=== PATIENT | male | born 1935 | race Caucasian/White ===

== ENCOUNTER → 2017-08-11 08:57 | Outpatient (CLI) | payer MEDICARE, OTHER, SELFPAY ==
--- NOTE | 2017-08-11 | DI.MRI.S_ITS ---
PROCEDURE: MR LUMBAR SPINE WO CON INDICATIONS: LUMBAR SPINAL STENOSIS TECHNIQUE: Noncontrast sagittal T1 spin echo and T2 fast echo, sagittal STIR, axial T1 and T2 fast spin echo through the lumbar spine. In this patient, coronal T2-weighted images were also performed. COMPARISON: None. FINDINGS: Image quality: Diagnostic, with note made of motion artifact. Alignment and Curvature: Moderate dextroconvex scoliotic curvature is seen. Mild retrolisthesis is seen at the T12-L1, L2-L3, and L3-L4, and L4-L5, and L5-S1 levels. Bone Marrow: Marrow is of normal overall signal. No acute vertebral body compression fractures. Spinal Cord: Conus medullaris terminates at the L1 level. Visualized cord demonstrates normal signal and size. Paraspinous Soft Tissues: No paravertebral masses. T12-L1: Moderate loss of disc height is seen. Loss of disc signal is seen. Moderate disc bulge is seen, which is eccentric to the right. Moderate bilateral neural foraminal narrowing is seen, right worse than left. Mild central canal narrowing is seen. L1-L2: Moderate to severe loss of disc height and disc signal are seen on the left. Moderate generalized disc bulge is seen. Moderate facet joint hypertrophy is seen. Moderate bilateral neural foraminal narrowing is seen, left worse than right. Moderate central canal narrowing is seen. L2-L3: Moderate to severe loss of disc height and disc signal are seen. Moderate disc bulge is seen. Moderate facet joint hypertrophy is seen. There is moderate left-sided and mild right-sided neural foraminal narrowing seen. [id number] central canal narrowing is seen. L3-L4: Moderate to severe loss of disc height and disc signal are seen. Moderate disc bulge is seen. At least moderate facet hypertrophy is seen. There is moderate to severe bilateral neural foraminal narrowing seen, left worse than right. There is a degree of impingement seen upon the exiting nerve roots. Moderate to severe central canal narrowing is seen. L4-L5: At least moderate loss of disc height is seen. Modified disc bulge is seen, which is eccentric to the right. There is moderate to severe right-sided neural foraminal narrowing seen, with associated impingement upon the exiting right L4 nerve root. Moderate left-sided neural foraminal narrowing is seen. [id number] central canal narrowing is seen. L5-S1: At least moderate loss of disc height and disc signal are seen. Moderate disc bulge is seen, which is eccentric to the right. Moderate facet joint hypertrophy is seen. Moderate to severe bilateral neural foraminal narrowing is seen, right worse than left. Mild to moderate central canal narrowing is seen. IMPRESSION: Dextroconvex scoliosis and associated degenerative changes. The degenerative changes are overall most prominent at the L3-L4 level. Dictated by: Luis Carlos Soni M.D. on 08/11/2017 at 12:17 Approved by: Luis Carlos Soni M.D. on 08/11/2017 at 12:24
== END ==
PROVIDERS: Family Provider Internal Medicine; PCP Internal Medicine; Visit Provider Orthopaedic Surgery
DX: M48.061 Spinal stenosis, lumbar region without neurogenic claudication (principal); M41.9 Scoliosis, unspecified; M51.36 Other intervertebral disc degeneration, lumbar region
CPT/HCPCS: 72148

== ENCOUNTER → 2017-08-25 11:35 | Outpatient (CLI) | payer MEDICARE, OTHER, SELFPAY ==
[2017-08-25 13:12] LABS: BUN Creatinine Ratio 24.7 (6-22); Blood Urea Nitrogen 37 mg/dL (9-20); Calcium 9.7 mg/dL (8.4-10.2); Carbon Dioxide 23 mmol/L (22-32); Chloride 105 mmol/L (98-107); Glucose 150 mg/dL (80-110); HEMOLYSIS < 15 (0-50); Potassium 4.2 mmol/L (3.4-5.1); Sodium 140 mmol/L (137-145)
== END ==
PROVIDERS: Family Provider Internal Medicine; PCP Internal Medicine; Visit Provider Internal Medicine
DX: H81.03 Meniere's disease, bilateral (principal)
CPT/HCPCS: 36415; 80048

== ENCOUNTER → 2017-09-03 14:44 | Outpatient (CLI) | payer MEDICARE, OTHER, SELFPAY ==
--- NOTE | 2017-09-03 | DI.RAD.S_ITS ---
PROCEDURE: XR CHEST 2V INDICATIONS: COUGH TECHNIQUE: 2 views of the chest were acquired. COMPARISON: [facility], , CHEST 2 VIEW, 12/02/2016, 12:19. FINDINGS: Surgical changes and devices: None. Lungs and pleura: No pleural effusions or pneumothorax. Lungs are clear. Mediastinum: Mediastinal contours are normal. Heart size is normal. Bones and chest wall: No suspicious bony abnormalities. Soft tissues appear unremarkable. IMPRESSION: No source of cough is found. Chronic interstitial prominence previously documented. No effusion seen. Dictated by: Jemal Andrade M.D. on 09/03/2017 at 16:56 Approved by: Jemal Andrade M.D. on 09/03/2017 at 16:56
== END ==
PROVIDERS: Family Provider Internal Medicine; PCP Internal Medicine; Visit Provider Student in an Organized Health Care Education/Training Program
DX: R05 Cough (principal)
CPT/HCPCS: 71046

== ENCOUNTER → 2017-09-08 14:19 | Outpatient (CLI) | payer MEDICARE, OTHER, SELFPAY ==
[2017-09-08 17:01] LABS: Blood Urea Nitrogen 28 mg/dL (9-20); Calcium 9.3 mg/dL (8.4-10.2); Carbon Dioxide 24 mmol/L (22-32); Chloride 104 mmol/L (98-107); Estimated Glomerular Filt Rate 48.8 mL/min (>60); Glucose 106 mg/dL (80-110); HEMOLYSIS < 15 (0-50); Potassium 4.3 mmol/L (3.4-5.1); Sodium 140 mmol/L (137-145)
== END ==
PROVIDERS: Family Provider Internal Medicine; PCP Internal Medicine; Visit Provider Internal Medicine
DX: H81.03 Meniere's disease, bilateral (principal)
CPT/HCPCS: 36415; 80048

== ENCOUNTER 2017-11-20 15:06 | Emergency (ER) | payer MEDICARE, OTHER, SELFPAY ==
--- NOTE | 2017-11-20 15:12 | ED.FALL ---
HPI - Fall General Chief Complaint: Fall Stated Complaint: GLF Time Seen by Provider: 11/20/17 15:08 Source: patient and EMS Mode of arrival: EMS History of Present Illness HPI Narrative: 82-year-old male with history ongoing balance problems presents with a ground level fall and resultant injury to his left flank. He denies any head injury that he can think of but he does have significant distracting injuries. He has got midline neck pain as well as significant left-sided rib and flank pain which is worse with a deep breath or with motion. He denies nausea, vomiting or diarrhea. He does not take blood thinners. He feels better at rest. He refused pain meds from the paramedics. MD complaint: fall Onset (ago): minute(s) Fall from: standing Fall witnessed: no Place fall occurred: home Loss of consciousness: none Prolonged down time: no Symptoms prior to fall: none Context: history of frequent falls Location of injury: neck and back Quality: stabbing and aching Associated symptoms (after fall): denies Related Data Home Medications Medication Instructions Recorded Confirmed allopurinol 1 tab PO DAILY 11/20/17 11/20/17 amlodipine 5 mg PO DAILY 11/20/17 11/20/17 aspirin 81 mg PO DAILY 11/20/17 11/20/17 lisinopril-hydrochlorothiazide 1 tab PO DAILY 11/20/17 11/20/17 Previous Rx's Medication Instructions Recorded hydrocodone-acetaminophen 1 tab PO Q4-6H PRN #14 tab 11/20/17 Review of Systems Review of Systems All systems reviewed & are unremarkable except as noted in HPI and below Constitutional Denies chills, Denies fever(s), Denies lethargy and Denies weakness Eyes Denies change in vision, Denies eye discharge, Denies irritation and Denies loss of vision ENT Ears, Nose, Mouth, and Throat: Denies change in voice, Denies neck pain and Denies sore throat Cardiovascular Denies chest pain, Denies irregular heart rhythm, Denies lightheadedness, Denies palpitations, Denies dyspnea, Denies dyspnea on exertion and Denies orthopnea Respiratory Denies cough, Denies dyspnea, Denies dyspnea on exertion and Denies wheezing Comments: Pain in left rib is worse with deep breath Gastrointestinal Gastrointestinal: Denies abdominal pain, Denies change in bowel habits, Denies diarrhea, Denies nausea and Denies vomiting Genitourinary Denies hematuria, Denies flank pain, Denies urinary incontinence and Denies urinary urgency Musculoskeletal Denies neck pain Integumentary/Breasts Denies pruritus, Denies erythema, Denies rash and Denies wounds Neurologic Denies confusion, Denies loss of vision and Denies weakness Psychiatric Denies anxiety, Denies confusion, Denies depression, Denies homicidal ideation and Denies suicidal ideation Endocrine Denies palpitations Hematologic/Lymphatic Denies easy bruising Allergic/Immunologic Denies wheezing Exam Initial Vital Signs Initial Vital Signs: Vital Signs Temperature 98.7 F 11/20/17 15:20 Pulse Rate 80 11/20/17 15:20 Respiratory Rate 21 11/20/17 15:20 Blood Pressure 147/97 H 11/20/17 15:20 Pulse Oximetry 99 11/20/17 15:20 PFS Social History Smoking Status: Never smoker Course Orders Ordered: ED Orders 11/20/17 15:13 EKG-12 Lead Stat 11/20/17 15:15 CT head/brain wo con Stat XR chest 1V Stat XR pelvis 1-2V Stat 11/20/17 15:16 CT cervical spine wo con Stat CT chest abd pel w con Stat 11/20/17 15:41 Complete Blood Count AUTO DIFF Stat Comprehensive Metabolic Panel Stat Ethanol (ETOH) Stat Lipase Stat Partial Thromboplastin Time Stat Prothrombin Time INR Stat Troponin & CK Cardiac Panel Stat Type and Screen Stat Sodium Chloride (Normal Saline 0.9%) 1,000 mls @ 150 mls/hr IV CONT TUNG Last Admin: 11/20/17 15:48 Dose: 150 mls/hr Discontinued Medications Fentanyl (Sublimaze) 50 mcg IV NOW ONE Stop: 11/20/17 15:17 Last Admin: 11/20/17 15:48 Dose: 50 mcg Reevaluation(s) Reevaluation #1: Patient evaluated by Respiratory therapy and given incentive spirometer Vital Signs - 8 hr 11/20/17 15:20 Temperature 98.7 F Pulse Rate 80 Respiratory Rate 21 Blood Pressure 147/97 H Pulse Oximetry 99 MDM - Fall Medical Records Attestation: I reviewed the patient's medical records. Lab Data Attestation: I reviewed the patient's lab results. Result diagrams: 11/20/17 15:41 11/20/17 15:41 Lab Results 0911/20/17 11/20/17 Range/Units 15:41 15:41 15:41 WBC 6.2 (4.5-11.0) X10^3/uL RBC 4.73 (4.5-5.9) X10^6/uL Hgb 13.6 (13.5-17.5) g/dL Hct 40.6 L (41-53) % MCV 85.9 (80-100) fL MCH 28.8 (26-34) PG MCHC 33.5 (30-36) % RDW 14.3 (11.6-14.8) % Plt Count 130 L (150-400) X10^3/uL Neut % (Auto) 74.4 (50-75) % Lymph % (Auto) 14.8 L (25-40) % [place] % (Auto) 7.8 (3-14) % Eos % (Auto) 2.0 (2-4) % Baso % (Auto) 1.0 (0-2) % Neut # (Auto) 4700 (1570-3773) /uL PT 11.3 (10.1-12.7) SECONDS INR 1.1 (0.9-1.3) APTT 27 (26.4-36.2) SECONDS Sodium (137-145) mmol/L Potassium (3.4-5.1) mmol/L Chloride (98-107) mmol/L Carbon Dioxide (22-32) mmol/L BUN (9-20) mg/dL Creatinine (0.66-1.25) mg/dL Estimated GFR (>60) mL/min BUN/Creatinine Ratio (6-22) Glucose (80-110) mg/dL Calcium (8.4-10.2) mg/dL Total Bilirubin (0.2-1.3) mg/dL AST (17-59) IU/L ALT (21-72) IU/L Alkaline Phosphatase (38-126) U/L Total Creatine Kinase Cancelled CK-MB (CK-2) Cancelled CK-MB (CK-2) Rel Index Cancelled Troponin I Cancelled Total Protein (6.3-8.2) g/dL Albumin (3.5-5.0) g/dL Globulin (1.7-4.1) g/dL Albumin/Globulin Ratio (1.0-2.8) Lipase (23-300) U/L Ethyl Alcohol mg/dL Blood Type Antibody Screen 11/20/17 11/20/17 Range/Units 15:41 15:41 WBC (4.5-11.0) X10^3/uL RBC (4.5-5.9) X10^6/uL Hgb (13.5-17.5) g/dL Hct (41-53) % MCV (80-100) fL MCH (26-34) PG MCHC (30-36) % RDW (11.6-14.8) % Plt Count (150-400) X10^3/uL Neut % (Auto) (50-75) % Lymph % (Auto) (25-40) % [place] % (Auto) (3-14) % Eos % (Auto) (2-4) % Baso % (Auto) (0-2) % Neut # (Auto) (9232-7246) /uL PT (10.1-12.7) SECONDS INR (0.9-1.3) APTT (26.4-36.2) SECONDS Sodium 142 (137-145) mmol/L Potassium 3.8 (3.4-5.1) mmol/L Chloride 105 (98-107) mmol/L Carbon Dioxide 26 (22-32) mmol/L BUN 32 H (9-20) mg/dL Creatinine 1.40 H (0.66-1.25) mg/dL Estimated GFR 48.6 L (>60) mL/min BUN/Creatinine Ratio 22.9 H (6-22) Glucose 163 H (80-110) mg/dL Calcium 9.6 (8.4-10.2) mg/dL Total Bilirubin 0.6 (0.2-1.3) mg/dL AST 19 (17-59) IU/L ALT 30 (21-72) IU/L Alkaline Phosphatase 62 (38-126) U/L Total Creatine Kinase 90 CK-MB (CK-2) TNP CK-MB (CK-2) Rel Index Troponin I < 0.012 Total Protein 6.6 (6.3-8.2) g/dL Albumin 4.1 (3.5-5.0) g/dL Globulin 2.5 (1.7-4.1) g/dL Albumin/Globulin Ratio 1.6 (1.0-2.8) Lipase 107 (23-300) U/L Ethyl Alcohol < 10 mg/dL Blood Type AB Positive Antibody Screen Negative Point of Care Testing Glucose POC [address] scan - head: Radiologist's impression: PROCEDURE: CT HEAD/BRAIN WO CON INDICATIONS: fall with possible head injury TECHNIQUE: Noncontrast 4.5 mm thick angled axial sections acquired from the foramen magnum to the vertex, with coronal and sagittal reformats. For radiation dose reduction, the following was used: automated exposure control, adjustment of mA and/or kV according to patient size. COMPARISON: [facility], CT, HEAD WITHOUT CONTRAST, 06/24/2017, 12:01. FINDINGS: Image quality: Excellent. CSF spaces: Basal cisterns are patent. No extra-axial fluid collections. The ventricles are symmetric in size and shape. Brain: No intracranial bleeds or masses. There is cerebral volume loss for age, with resultant ventricular and sulcal prominence. There are periventricular and deep white matter chronic small vessel ischemic changes. There is intracranial internal carotid artery atherosclerosis. Skull and face: Calvarium and visualized facial bones appear intact, without suspicious lesions. Sinuses: Visualized sinuses and mastoids are clear. IMPRESSION: 1. No acute intracranial abnormalities. 2. Cerebral volume loss and chronic microvascular ischemic changes. Dictated by: Niharika Meadows M.D. on 11/20/2017 at 16:11 Approved by: Niharika Meadows M.D. on 11/20/2017 at 16:13 CT Cspine: Radiologist's impression: PROCEDURE: CT CERVICAL SPINE WO CON INDICATIONS: neck pain after fall TECHNIQUE: Noncontrast 3 mm thick sections acquired from the skull base to the T4 level. Sagittal and coronal reformats were then constructed. For radiation dose reduction, the following was used: automated exposure control, adjustment of mA and/or kV according to patient size. COMPARISON: [facility], CT, C-SPINE WITHOUT CONTRAST, 05/21/2015, 11:19. FINDINGS: Image quality: Excellent. Bones: No fractures or dislocations. Visualized superior ribs are intact. Extensive multilevel cervical disc degeneration throughout the entire cervical spine as before. Loss of the normal cervical lordosis and focal kyphosis centered at C5. There is redemonstration of grade 1 anterolisthesis of C2 on C3 and C4 on C5. Postsurgical effects including C5-C6 posterior decompression as before Soft tissues: Prevertebral soft tissues are normal in thickness. No paravertebral hematomas. No apical pneumothoraces. IMPRESSION: No acute fracture or malalignment identified. Extensive diffuse cervical disc degeneration, facet arthropathy and postsurgical changes as above. Dictated by: Js Conway M.D. on 11/20/2017 at 16:12 Approved by: Js Conway M.D. on 11/20/2017 at 16:16 Chest x-ray: Attestation: I personally reviewed and interpreted this imaging study as follows: My impression: [facility] Radiologist's impression: PROCEDURE: XR CHEST 1V INDICATIONS: fall with L rib pain TECHNIQUE: One view of the chest was acquired. [facility] 14[facility]39[facility]ST [facility], 12/02/2016, 12:19. FINDINGS: Surgical changes and devices: None. Lungs and pleura: No pleural effusions or pneumothorax. Lungs are clear. Mediastinum: Mediastinal contours appear normal. Heart size is normal. Bones and chest wall: No suspicious bony lesions. Overlying soft tissues appear unremarkable. IMPRESSION: Tortuous aorta, no trauma seen, no acute disease considering patient rotation rightward. Dictated by: Jemla Andrade M.D. on 11/20/2017 at 15:53 Approved by: Jemal Andrade M.D. on 11/20/2017 at 15:53 Pelvis Xray: Attestation: I personally reviewed and interpreted this imaging study as follows: My impression: [facility] Radiologist's impression: [address] [address] XRay Report Signed Patient: Esvin Coombs [facility]#: [id number] : 7Acct:[id number] Age/Sex: 82 / MDate of Service: 11/20/17 Loc: ED Accession Number: [id number] Procedure: XR pelvis 1-2V Ordering Provider: Raf Riggs D.O. PROCEDURE: XR PELVIS 1-2V INDICATIONS: fall with L sided pain TECHNIQUE: 2 view(s) of the pelvis acquired. COMPARISON: None. FINDINGS: Bones: No fractures or dislocations. No suspicious bony lesions. Soft tissues: Visualized bowel gas pattern is normal. No suspicious soft tissue calcifications. Postsurgical clips present over the pelvis bilaterally. 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 Dictated by: Jemal Andrade M.D. on 11/20/2017 at 15:54 Approved by: Jemal Andrade M.D. on 11/20/2017 at 15:54 Discharge Plan Departure Patient Disposition: Home Clinical Impression: Fracture, ribs Instructions: DI for Rib Fracture Activity Restrictions/Additional Instructions: You have been prescribed narcotic medications. While on these medications you cannot drive or operate heavy machinery. Additionally you cannot sign legal documents or perform any duties such as this. Many people get constipated on narcotic medications so it would be advisable to discuss stool softeners with the pharmacist when you coal picker your prescription. Please understand that we cannot provide further refills of narcotics or controlled substances through the ED and your pain management will need to be through your Primary Care Provider Prescriptions: New hydrocodone-acetaminophen 5-325 mg tablet 1 tab PO Q4-6H PRN (Reason: pain) Qty: 14 RF: 0 No Action lisinopril-hydrochlorothiazide 20-12.5 mg tablet 1 tab PO DAILY RF: 0 amlodipine 5 mg tablet 5 mg PO DAILY RF: 0 allopurinol 300 mg tablet 1 tab PO DAILY RF: 0 aspirin 81 mg Tablet,Delayed Release (Dr/Ec) 81 mg PO DAILY RF: 0 Referrals: Duke Felix MD [Primary Care Provider] -
--- NOTE | 2017-11-20 15:15 | DI.RAD.S_ITS ---
PROCEDURE: XR CHEST 1V INDICATIONS: fall with L rib pain TECHNIQUE: One view of the chest was acquired. COMPARISON: [facility], , XR CHEST 2V, 09/03/2017, 14:39. [facility], , CHEST 2 VIEW, 12/02/2016, 12:19. FINDINGS: Surgical changes and devices: None. Lungs and pleura: No pleural effusions or pneumothorax. Lungs are clear. Mediastinum: Mediastinal contours appear normal. Heart size is normal. Bones and chest wall: No suspicious bony lesions. Overlying soft tissues appear unremarkable. IMPRESSION: Tortuous aorta, no trauma seen, no acute disease considering patient rotation rightward. Dictated by: Jemal Andrade M.D. on 11/20/2017 at 15:53 Approved by: Jemal Andrade M.D. on 11/20/2017 at 15:53
--- NOTE | 2017-11-20 15:15 | DI.CT.S_ITS ---
PROCEDURE: CT HEAD/BRAIN WO CON INDICATIONS: fall with possible head injury TECHNIQUE: Noncontrast 4.5 mm thick angled axial sections acquired from the foramen magnum to the vertex, with coronal and sagittal reformats. For radiation dose reduction, the following was used: automated exposure control, adjustment of mA and/or kV according to patient size. COMPARISON: [facility], CT, HEAD WITHOUT CONTRAST, 06/24/2017, 12:01. FINDINGS: Image quality: Excellent. CSF spaces: Basal cisterns are patent. No extra-axial fluid collections. The ventricles are symmetric in size and shape. Brain: No intracranial bleeds or masses. There is cerebral volume loss for age, with resultant ventricular and sulcal prominence. There are periventricular and deep white matter chronic small vessel ischemic changes. There is intracranial internal carotid artery atherosclerosis. Skull and face: Calvarium and visualized facial bones appear intact, without suspicious lesions. Sinuses: Visualized sinuses and mastoids are clear. IMPRESSION: 1. No acute intracranial abnormalities. 2. Cerebral volume loss and chronic microvascular ischemic changes. Dictated by: Niharika Meadows M.D. on 11/20/2017 at 16:11 Approved by: Niharika Meadows M.D. on 11/20/2017 at 16:13
--- NOTE | 2017-11-20 15:15 | DI.RAD.S_ITS ---
PROCEDURE: XR PELVIS 1-2V INDICATIONS: fall with L sided pain TECHNIQUE: 2 view(s) of the pelvis acquired. COMPARISON: None. FINDINGS: Bones: No fractures or dislocations. No suspicious bony lesions. Soft tissues: Visualized bowel gas pattern is normal. No suspicious soft tissue calcifications. Postsurgical clips present over the pelvis bilaterally. 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 Dictated by: Jemal Andrade M.D. on 11/20/2017 at 15:54 Approved by: Jemal Andrade M.D. on 11/20/2017 at 15:54
--- NOTE | 2017-11-20 15:16 | DI.CT.S_ITS ---
PROCEDURE: CT CERVICAL SPINE WO CON INDICATIONS: neck pain after fall TECHNIQUE: Noncontrast 3 mm thick sections acquired from the skull base to the T4 level. Sagittal and coronal reformats were then constructed. For radiation dose reduction, the following was used: automated exposure control, adjustment of mA and/or kV according to patient size. COMPARISON: [facility], CT, C-SPINE WITHOUT CONTRAST, 05/21/2015, 11:19. FINDINGS: Image quality: Excellent. Bones: No fractures or dislocations. Visualized superior ribs are intact. Extensive multilevel cervical disc degeneration throughout the entire cervical spine as before. Loss of the normal cervical lordosis and focal kyphosis centered at C5. There is redemonstration of grade 1 anterolisthesis of C2 on C3 and C4 on C5. Postsurgical effects including C5-C6 posterior decompression as before Soft tissues: Prevertebral soft tissues are normal in thickness. No paravertebral hematomas. No apical pneumothoraces. IMPRESSION: No acute fracture or malalignment identified. Extensive diffuse cervical disc degeneration, facet arthropathy and postsurgical changes as above. Dictated by: Js Conway M.D. on 11/20/2017 at 16:12 Approved by: Js Conway M.D. on 11/20/2017 at 16:16
--- NOTE | 2017-11-20 15:16 | DI.CT.S_ITS ---
PROCEDURE: CT CHEST ABD PEL W CON INDICATIONS: severe L sided chest/abdomen pain after fall TECHNIQUE: After the administration of intravenous contrast, 5 mm thick sections acquired from the lung apices to the symphysis. 2.5 mm thick coronal and sagittal reformats were acquired. Additional 7 mm thick coronal maximum intensity projection (MIP) reformats acquired through the lungs. Optional 10-minute delayed imaging may be performed from the kidneys to the bladder. For radiation dose reduction, the following was used: automated exposure control, adjustment of mA and/or kV according to patient size. COMPARISON: [facility], CT, CT CERVICAL SPINE WO CON, 11/20/2017, 15:56. [facility], CT, CT HEAD/BRAIN WO CON, 11/20/2017, 15:56. [facility], CR, XR PELVIS 1-2V, 11/20/2017, 15:25. [facility], CR, XR CHEST 1V, 11/20/2017, 15:25. FINDINGS: Image quality: Excellent. CHEST: Lungs: No pulmonary contusions or lacerations. No acute airspace opacities. No pneumothorax or hemothorax. Central and peripheral airways appear patent and normal in caliber. Mediastinum: No mediastinal hematomas. Heart size is normal. No pericardial effusion. Thoracic aorta and pulmonary arteries demonstrate normal size and enhancement. Atherosclerotic calcification is noted. No mediastinal or hilar adenopathy. Esophagus is normal in caliber. No hiatal hernia. Chest wall: There are acute left posterior rib fractures involving the 11th and 12th ribs. There are remote left lateral rib fractures present. No subcutaneous emphysema. No axillary or supraclavicular adenopathy. Thyroid gland demonstrates a densely calcified lesion within the left thyroid lobe, as on series 2 image 9, which is presumed to be benign. ABDOMEN: Solid organs: Liver is normal in size and enhancement, without lacerations. A water density cyst can be seen within the central liver, as on series 2 image 54 measuring 13 mm. Gallbladder is partially collapsed at the time of this examination. Biliary system is non-dilated. Pancreas enhances normally, without transection. Spleen is normal in size and enhancement, without lacerations. There is a right adrenal lesion seen that measures 4 x 2.7 cm in greatest axial dimension, with a central density of 52 Hounsfield units. A left adrenal nodule is also seen that measures 1.9 x 1.5 cm in greatest axial dimension, with a central density of 39 Hounsfield units. Both kidneys enhance normally. There is left-sided hydronephrosis and a prominent left renal pelvis, with an abrupt caliber change into the normal caliber left ureter. UPJ obstruction is suspected. Simple appearing exophytic right renal cysts are seen. Peritoneum and bowel: No free fluid or air. Unenhanced bowel loops demonstrate normal wall thickness and caliber. Diverticulosis is seen, without findings of active diverticulitis. Nodes and vessels: No retroperitoneal or mesenteric adenopathy. Aorta and inferior vena cava are normal in size and enhancement. Miscellaneous: A mild periumbilical hernia is seen, containing fat. PELVIS: Genitourinary: Bladder wall thickness is normal. Prostatectomy change is seen. Miscellaneous: No inguinal hernias or adenopathy. Bones: Pelvic ring and hip joints appear intact. No vertebral compression fractures. Moderate dextroconvex scoliotic curvature is seen. Prominent degenerative changes are seen. Fusion changes are seen at the L2-L3 level. IMPRESSION: Acute fractures of the left posterior 11th and 12th ribs. There is no associated pneumothorax. No solid organ injury can be seen. No acute hematomas are seen. Bilateral adrenal nodules are seen. Although hematomas are possible in this acute setting, these are felt more likely to be related to masses. When clinically appropriate, please consider a dedicated adrenal protocol MRI for further evaluation (assuming that there is no contraindication). Left UPJ obstruction. Incidental note is made of: Moderate dextroconvex scoliosis Presumed liver cyst Right renal cysts Degenerative changes with fusion of the L2-L3 level Remote left lateral rib fractures Fat-containing periumbilical hernia Prostatectomy change Dictated by: Luis Carlos Soni M.D. on 11/20/2017 at 16:39 Approved by: Luis Carlos Soni M.D. on 11/20/2017 at 16:49
[2017-11-20 15:20] VITALS: BP 147/97; PULSE 80; RESP 21; TEMP 37.1; O2SAT 99; BMI 29.0
[2017-11-20] MEDS: fentaNYL 100 MCG/2 ML INJ 50 MCG IV (15:48)
[2017-11-20] MEDS: SODIUM CHLORIDE 0.9% 1,000 ML 150 ML IV (15:48)
[2017-11-20 15:49] LABS: Add Manual Diff / Slide Review NO; Hematocrit 40.6 % (41-53); Hemoglobin 13.6 g/dL (13.5-17.5); Lymphocytes Percent Auto 14.8 % (25-40); Mean Corpuscular HGB Conc 33.5 % (30-36); Mean Corpuscular Hemoglobin 28.8 PG (26-34); Mean Corpuscular Volume 85.9 fL (80-100); Monocytes Percent Auto 7.8 % (3-14); Neutrophils Absolute Auto 4700 /uL (3000-5900); Neutrophils Percent Auto 74.4 % (50-75); Platelet Count 130 X10^3/uL (150-400); Red Blood Cell Count 4.73 X10^6/uL (4.5-5.9); Red Cell Distribution Width 14.3 % (11.6-14.8); White Blood Cell Count 6.2 X10^3/uL (4.5-11.0)
[2017-11-20 15:56] LABS: INR 1.1 (0.9-1.3); Prothrombin Time 11.3 SECONDS (10.1-12.7)
[2017-11-20 15:59] LABS: PTT Partial Thromboplastin Tim 27 SECONDS (26.4-36.2)
--- NOTE | 2017-11-20 16:01 | ED_ITS ---
HPI - Fall General Chief Complaint: Fall Stated Complaint: GLF Time Seen by Provider: 11/20/17 15:08 Source: patient and EMS Mode of arrival: EMS History of Present Illness HPI Narrative: 82-year-old male with history ongoing balance problems presents with a ground level fall and resultant injury to his left flank. He denies any head injury that he can think of but he does have significant distracting injuries. He has got midline neck pain as well as significant left-sided rib and flank pain which is worse with a deep breath or with motion. He denies nausea, vomiting or diarrhea. He does not take blood thinners. He feels better at rest. He refused pain meds from the paramedics. MD complaint: fall Onset (ago): minute(s) Fall from: standing Fall witnessed: no Place fall occurred: home Loss of consciousness: none Prolonged down time: no Symptoms prior to fall: none Context: history of frequent falls Location of injury: neck and back Quality: stabbing and aching Associated symptoms (after fall): denies Related Data Home Medications Medication Instructions Recorded Confirmed allopurinol 1 tab PO DAILY 11/20/17 11/20/17 amlodipine 5 mg PO DAILY 11/20/17 11/20/17 aspirin 81 mg PO DAILY 11/20/17 11/20/17 lisinopril-hydrochlorothiazide 1 tab PO DAILY 11/20/17 11/20/17 Previous Rx's Medication Instructions Recorded hydrocodone-acetaminophen 1 tab PO Q4-6H PRN #14 tab 11/20/17 Review of Systems Review of Systems All systems reviewed & are unremarkable except as noted in HPI and below Constitutional Denies chills, Denies fever(s), Denies lethargy and Denies weakness Eyes Denies change in vision, Denies eye discharge, Denies irritation and Denies loss of vision ENT Ears, Nose, Mouth, and Throat: Denies change in voice, Denies neck pain and Denies sore throat Cardiovascular Denies chest pain, Denies irregular heart rhythm, Denies lightheadedness, Denies palpitations, Denies dyspnea, Denies dyspnea on exertion and Denies orthopnea Respiratory Denies cough, Denies dyspnea, Denies dyspnea on exertion and Denies wheezing Comments: Pain in left rib is worse with deep breath Gastrointestinal Gastrointestinal: Denies abdominal pain, Denies change in bowel habits, Denies diarrhea, Denies nausea and Denies vomiting Genitourinary Denies hematuria, Denies flank pain, Denies urinary incontinence and Denies urinary urgency Musculoskeletal Denies neck pain Integumentary/Breasts Denies pruritus, Denies erythema, Denies rash and Denies wounds Neurologic Denies confusion, Denies loss of vision and Denies weakness Psychiatric Denies anxiety, Denies confusion, Denies depression, Denies homicidal ideation and Denies suicidal ideation Endocrine Denies palpitations Hematologic/Lymphatic Denies easy bruising Allergic/Immunologic Denies wheezing Exam Initial Vital Signs Initial Vital Signs: Vital Signs Temperature 98.7 F 11/20/17 15:20 Pulse Rate 80 11/20/17 15:20 Respiratory Rate 21 11/20/17 15:20 Blood Pressure 147/97 H 11/20/17 15:20 Pulse Oximetry 99 11/20/17 15:20 PFS Social History Smoking Status: Never smoker Course Orders Ordered: ED Orders 11/20/17 15:13 EKG-12 Lead Stat 11/20/17 15:15 CT head/brain wo con Stat XR chest 1V Stat XR pelvis 1-2V Stat 11/20/17 15:16 CT cervical spine wo con Stat CT chest abd pel w con Stat 11/20/17 15:41 Complete Blood Count AUTO DIFF Stat Comprehensive Metabolic Panel Stat Ethanol (ETOH) Stat Lipase Stat Partial Thromboplastin Time Stat Prothrombin Time INR Stat Troponin & CK Cardiac Panel Stat Type and Screen Stat Sodium Chloride (Normal Saline 0.9%) 1,000 mls @ 150 mls/hr IV CONT TUNG Last Admin: 11/20/17 15:48 Dose: 150 mls/hr Discontinued Medications Fentanyl (Sublimaze) 50 mcg IV NOW ONE Stop: 11/20/17 15:17 Last Admin: 11/20/17 15:48 Dose: 50 mcg Reevaluation(s) Reevaluation #1: Patient evaluated by Respiratory therapy and given incentive spirometer Vital Signs - 8 hr 11/20/17 15:20 Temperature 98.7 F Pulse Rate 80 Respiratory Rate 21 Blood Pressure 147/97 H Pulse Oximetry 99 MDM - Fall Medical Records Attestation: I reviewed the patient's medical records. Lab Data Attestation: I reviewed the patient's lab results. Result diagrams: 11/20/17 15:41 11/20/17 15:41 Lab Results 0911/20/17 11/20/17 Range/Units 15:41 15:41 15:41 WBC 6.2 (4.5-11.0) X10^3/uL RBC 4.73 (4.5-5.9) X10^6/uL Hgb 13.6 (13.5-17.5) g/dL Hct 40.6 L (41-53) % MCV 85.9 (80-100) fL MCH 28.8 (26-34) PG MCHC 33.5 (30-36) % RDW 14.3 (11.6-14.8) % Plt Count 130 L (150-400) X10^3/uL Neut % (Auto) 74.4 (50-75) % Lymph % (Auto) 14.8 L (25-40) % Bibb % (Auto) 7.8 (3-14) % Eos % (Auto) 2.0 (2-4) % Baso % (Auto) 1.0 (0-2) % Neut # (Auto) 4700 (3795-8761) /uL PT 11.3 (10.1-12.7) SECONDS INR 1.1 (0.9-1.3) APTT 27 (26.4-36.2) SECONDS Sodium (137-145) mmol/L Potassium (3.4-5.1) mmol/L Chloride (98-107) mmol/L Carbon Dioxide (22-32) mmol/L BUN (9-20) mg/dL Creatinine (0.66-1.25) mg/dL Estimated GFR (>60) mL/min BUN/Creatinine Ratio (6-22) Glucose (80-110) mg/dL Calcium (8.4-10.2) mg/dL Total Bilirubin (0.2-1.3) mg/dL AST (17-59) IU/L ALT (21-72) IU/L Alkaline Phosphatase (38-126) U/L Total Creatine Kinase Cancelled CK-MB (CK-2) Cancelled CK-MB (CK-2) Rel Index Cancelled Troponin I Cancelled Total Protein (6.3-8.2) g/dL Albumin (3.5-5.0) g/dL Globulin (1.7-4.1) g/dL Albumin/Globulin Ratio (1.0-2.8) Lipase (23-300) U/L Ethyl Alcohol mg/dL Blood Type Antibody Screen 11/20/17 11/20/17 Range/Units 15:41 15:41 WBC (4.5-11.0) X10^3/uL RBC (4.5-5.9) X10^6/uL Hgb (13.5-17.5) g/dL Hct (41-53) % MCV (80-100) fL MCH (26-34) PG MCHC (30-36) % RDW (11.6-14.8) % Plt Count (150-400) X10^3/uL Neut % (Auto) (50-75) % Lymph % (Auto) (25-40) % Bibb % (Auto) (3-14) % Eos % (Auto) (2-4) % Baso % (Auto) (0-2) % Neut # (Auto) (0836-6396) /uL PT (10.1-12.7) SECONDS INR (0.9-1.3) APTT (26.4-36.2) SECONDS Sodium 142 (137-145) mmol/L Potassium 3.8 (3.4-5.1) mmol/L Chloride 105 (98-107) mmol/L Carbon Dioxide 26 (22-32) mmol/L BUN 32 H (9-20) mg/dL Creatinine 1.40 H (0.66-1.25) mg/dL Estimated GFR 48.6 L (>60) mL/min BUN/Creatinine Ratio 22.9 H (6-22) Glucose 163 H (80-110) mg/dL Calcium 9.6 (8.4-10.2) mg/dL Total Bilirubin 0.6 (0.2-1.3) mg/dL AST 19 (17-59) IU/L ALT 30 (21-72) IU/L Alkaline Phosphatase 62 (38-126) U/L Total Creatine Kinase 90 CK-MB (CK-2) TNP CK-MB (CK-2) Rel Index Troponin I < 0.012 Total Protein 6.6 (6.3-8.2) g/dL Albumin 4.1 (3.5-5.0) g/dL Globulin 2.5 (1.7-4.1) g/dL Albumin/Globulin Ratio 1.6 (1.0-2.8) Lipase 107 (23-300) U/L Ethyl Alcohol < 10 mg/dL Blood Type AB Positive Antibody Screen Negative Point of Care Testing Glucose POC [address] scan - head: Radiologist's impression: PROCEDURE: CT HEAD/BRAIN WO CON INDICATIONS: fall with possible head injury TECHNIQUE: Noncontrast 4.5 mm thick angled axial sections acquired from the foramen magnum to the vertex, with coronal and sagittal reformats. For radiation dose reduction, the following was used: automated exposure control, adjustment of mA and/or kV according to patient size. COMPARISON: [facility], CT, HEAD WITHOUT CONTRAST, 06/24/2017, 12:01. FINDINGS: Image quality: Excellent. CSF spaces: Basal cisterns are patent. No extra-axial fluid collections. The ventricles are symmetric in size and shape. Brain: No intracranial bleeds or masses. There is cerebral volume loss for age , with resultant ventricular and sulcal prominence. There are periventricular and deep white matter chronic small vessel ischemic changes. There is intracranial internal carotid artery atherosclerosis. Skull and face: Calvarium and visualized facial bones appear intact, without suspicious lesions. Sinuses: Visualized sinuses and mastoids are clear. IMPRESSION: 1. No acute intracranial abnormalities. 2. Cerebral volume loss and chronic microvascular ischemic changes. Dictated by: Niharika Meadows M.D. on 11/20/2017 at 16:11 Approved by: Niharika Meadows M.D. on 11/20/2017 at 16:13 CT Cspine: Radiologist's impression: PROCEDURE: CT CERVICAL SPINE WO CON INDICATIONS: neck pain after fall TECHNIQUE: Noncontrast 3 mm thick sections acquired from the skull base to the T4 level. Sagittal and coronal reformats were then constructed. For radiation dose reduction, the following was used: automated exposure control, adjustment of mA and/or kV according to patient size. COMPARISON: [facility], CT, C-SPINE WITHOUT CONTRAST, 05/21/2015, 11:19. FINDINGS: Image quality: Excellent. Bones: No fractures or dislocations. Visualized superior ribs are intact. Extensive multilevel cervical disc degeneration throughout the entire cervical spine as before. Loss of the normal cervical lordosis and focal kyphosis centered at C5. There is redemonstration of grade 1 anterolisthesis of C2 on C3 and C4 on C5. Postsurgical effects including C5-C6 posterior decompression as before Soft tissues: Prevertebral soft tissues are normal in thickness. No paravertebral hematomas. No apical pneumothoraces. IMPRESSION: No acute fracture or malalignment identified. Extensive diffuse cervical disc degeneration, facet arthropathy and postsurgical changes as above. Dictated by: Js Conway M.D. on 11/20/2017 at 16:12 Approved by: Js Conway M.D. on 11/20/2017 at 16:16 Chest x-ray: Attestation: I personally reviewed and interpreted this imaging study as follows: My impression: [facility] Radiologist's impression: PROCEDURE: XR CHEST 1V INDICATIONS: fall with L rib pain TECHNIQUE: One view of the chest was acquired. COMPARISON: [facility], XR CHEST 2V, 09/03/2017, 14:39. [facility], CHEST 2 VIEW, 12/02/2016, 12:19. FINDINGS: Surgical changes and devices: None. Lungs and pleura: No pleural effusions or pneumothorax. Lungs are clear. Mediastinum: Mediastinal contours appear normal. Heart size is normal. Bones and chest wall: No suspicious bony lesions. Overlying soft tissues appear unremarkable. IMPRESSION: Tortuous aorta, no trauma seen, no acute disease considering patient rotation rightward. Dictated by: Jemal Andrade M.D. on 11/20/2017 at 15:53 Approved by: Jemal Andrade M.D. on 11/20/2017 at 15:53 Pelvis Xray: Attestation: I personally reviewed and interpreted this imaging study as follows: My impression: [facility] Radiologist's impression: [address] [address] XRay Report Signed Patient: Esvin Coobms [facility]#: [id number] : 7Acct:[id number] Age/Sex: 82 / MDate of Service: 11/20/17 Loc: ED Accession Number: [id number] Procedure: XR pelvis 1-2V Ordering Provider: Raf Riggs D.O. PROCEDURE: XR PELVIS 1-2V INDICATIONS: fall with L sided pain TECHNIQUE: 2 view(s) of the pelvis acquired. COMPARISON: None. FINDINGS: Bones: No fractures or dislocations. No suspicious bony lesions. Soft tissues: Visualized bowel gas pattern is normal. No suspicious soft tissue calcifications. Postsurgical clips present over the pelvis bilaterally. 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 Dictated by: Jemal Andrade M.D. on 11/20/2017 at 15:54 Approved by: Jemal Andrade M.D. on 11/20/2017 at 15:54 Discharge Plan Departure Patient Disposition: Home Clinical Impression: Fracture, ribs Instructions: DI for Rib Fracture Activity Restrictions/Additional Instructions: You have been prescribed narcotic medications. While on these medications you cannot drive or operate heavy machinery. Additionally you cannot sign legal documents or perform any duties such as this. Many people get constipated on narcotic medications so it would be advisable to discuss stool softeners with the pharmacist when you fiber picker your prescription. Please understand that we cannot provide further refills of narcotics or controlled substances through the ED and your pain management will need to be through your Primary Care Provider Prescriptions: New hydrocodone-acetaminophen 5-325 mg tablet 1 tab PO Q4-6H PRN (Reason: pain) Qty: 14 RF: 0 No Action lisinopril-hydrochlorothiazide 20-12.5 mg tablet 1 tab PO DAILY RF: 0 amlodipine 5 mg tablet 5 mg PO DAILY RF: 0 allopurinol 300 mg tablet 1 tab PO DAILY RF: 0 aspirin 81 mg Tablet,Delayed Release (Dr/Ec) 81 mg PO DAILY RF: 0 Referrals: Duke Felix MD [Primary Care Provider] -
[2017-11-20 16:03] LABS: Alanine Aminotransferase 30 IU/L (21-72); Albumin 4.1 g/dL (3.5-5.0); Albumin Globulin Ratio 1.6 (1.0-2.8); Alkaline Phosphatase 62 U/L (38-126); Aspartate Aminotransferase 19 IU/L (17-59); BUN Creatinine Ratio 22.9 (6-22); Bilirubin Total 0.6 mg/dL (0.2-1.3); Blood Urea Nitrogen 32 mg/dL (9-20); Calcium 9.6 mg/dL (8.4-10.2); Carbon Dioxide 26 mmol/L (22-32); Chloride 105 mmol/L (98-107); Creatine Kinase 90 U/L (55-170); Estimated Glomerular Filt Rate 48.6 mL/min (>60); Ethanol (ETOH) < 10 mg/dL; Globulin 2.5 g/dL (1.7-4.1); Glucose 163 mg/dL (80-110); HEMOLYSIS < 15 (0-50); Lipase 107 U/L (23-300); Potassium 3.8 mmol/L (3.4-5.1); Sodium 142 mmol/L (137-145); Total Protein 6.6 g/dL (6.3-8.2)
[2017-11-20 16:16] LABS: Troponin I < 0.012 ng/mL (0.01-0.034)
--- NOTE | 2017-11-20 16:46 | CM.MNRNOTE ---
Cervical spine cleared by provider. Removed hard collar at this time.
--- NOTE | 2017-11-20 18:12 | RT ---
Pt (and pt's ) issued and instructed Incentive Spirometer use. Splint cough techniques also reviewed.
[2017-11-20 18:15] VITALS: BP 134/90; PULSE 77; RESP 19; O2SAT 98
== END 2017-11-20 18:17 | disposition home or self-care (01) ==
PROVIDERS: Emergency Provider Emergency Medicine; Family Provider Internal Medicine; PCP Internal Medicine
DX: S22.39XA Fracture of one rib, unspecified side, initial encounter for closed fracture (principal); W18.30XA Fall on same level, unspecified, initial encounter
CPT/HCPCS: 36415; 70450; 71045; 71260; 72125; 72170; 74177; 80053; 80320; 82550; 82962; 83690; 84484; 85025; 85610; 85730; 86850; 86900; 86901; 93005; 96361; 96374; 99283; 99285; J3010; Q9967

== ENCOUNTER 2018-01-06 10:36 | Emergency (ER) | payer MEDICARE, OTHER, SELFPAY ==
--- NOTE | 2018-01-06 10:39 | ED_ITS ---
HPI - General Adult General Chief complaint: Fall Stated complaint: GLF/ rt rib pain Time Seen by Provider: 01/06/18 10:38 Source: patient and EMS Mode of arrival: EMS Limitations: no limitations History of Present Illness HPI narrative: Seen here in the emergency department several weeks ago and diagnosed with a left-sided rib fracture. This occurred after a fall. Patient states that he was feeling much better until he was walking out of the gas station prior to arrival and landed on his left side. Stated that he did hit his head but no loss of consciousness. He is not on anticoagulation. Patient received a total 4 mg of morphine by EMS prior to arrival here in the emergency department which did improve some of his symptoms. Related Data Home Medications Medication Instructions Recorded Confirmed allopurinol 1 tab PO DAILY 11/20/17 11/20/17 amlodipine 5 mg PO DAILY 11/20/17 01/06/18 aspirin 81 mg PO DAILY 11/20/17 11/20/17 lisinopril-hydrochlorothiazide 1 tab PO DAILY 11/20/17 01/06/18 Previous Rx's Medication Instructions Recorded hydrocodone-acetaminophen 1 tab PO Q4-6H PRN #14 tab 11/20/17 oxycodone-acetaminophen 1 tab PO Q4-6H PRN #14 tab 01/06/18 Allergies Allergy/AdvReac Type Severity Reaction Status Date / Time No Known Drug Allergies Allergy Unverified 01/06/18 10:40 Review of Systems Constitutional Denies fever(s) and Denies headache(s) Eyes Denies blurry vision and Denies diplopia ENT Ears, Nose, Mouth, and Throat: Denies headache(s) Cardiovascular Denies chest pain and Denies dyspnea Respiratory Denies cough and Denies dyspnea Gastrointestinal Gastrointestinal: Denies abdominal pain Musculoskeletal Reports back pain, Denies myalgias and Denies arthralgias Comments: Left-sided lower rib pain Integumentary/Breasts Denies lesions and Denies rash Neurologic Denies headache(s) Hematologic/Lymphatic Denies easy bleeding and Denies easy bruising PFSH Medical History Hypertension (Acute) Surgical History No pertinent past surgical history (Acute) Social History Smoking Status: Never smoker Exam Initial Vital Signs Initial Vital Signs: Vital Signs Temperature 99.0 F 01/06/18 10:40 Pulse Rate 81 01/06/18 10:40 Respiratory Rate 18 01/06/18 10:40 Blood Pressure 155/83 H 01/06/18 10:40 Pulse Oximetry 98 01/06/18 10:40 Const General: cooperative, healthy appearing, comfortable, well developed, well groomed and No acute distress Orientation: alert, awake and oriented x3 [facility] Head: normal to inspection and normocephalic Chest Chest: normal inspection of the chest Breast inspection: normal inspection of the breasts Resp Effort & Inspection: normal respiratory effort Auscultation: clear to auscultation bilaterally Cardio Rate: regular rate Rhythm: regular rhythm Pulses: radial pulses present GI Inspection: non-distended Palpation: soft, No firm and No tender Back/Spine/Pelvis Back: normal to inspection and back tenderness (Left sided lower rib tenderness left-sided flank pain) Skin Lesions: no lesions Rashes: no rashes Neuro General: alert, awake and oriented x3 Cognition: normal cognition Speech: speech normal Extrem General: normal to inspection and capillary refill normal Course Orders Ordered: ED Orders 01/06/18 10:44 XR ribs LT min 3V w CXR1V Stat 01/06/18 12:14 XR elbow LT min 3V Stat XR shoulder LT min 2V Stat Discontinued Medications Hydrocodone Bitart/Acetaminophen ([place] 5/325) 1 tab PO NOW ONE Stop: 01/06/18 11:33 Last Admin: 01/06/18 11:51 Dose: 1 tab Ketorolac Tromethamine (Toradol) 30 mg IM NOW ONE Stop: 01/06/18 13:20 Vital Signs - 8 hr 01/06/18 10:40 Temperature 99.0 F Pulse Rate 81 Respiratory Rate 18 Blood Pressure 155/83 H Pulse Oximetry 98 Medical Decision Making Imaging Data Chest x-ray: Radiologist's impression: PROCEDURE: XR RIBS LT MIN 3V W CXR1V INDICATIONS: Fall left-sided rib pain TECHNIQUE: 4 views of the left ribs were acquired, along with a single view chest. COMPARISON: [facility], [facility], XR CHEST 1V, 11/20/2017, 15:25. FINDINGS: Surgical changes and devices: None. Bones and chest wall: No fractures or dislocations. No suspicious bony lesions. Overlying soft tissues appear unremarkable. Lungs and pleura: No pleural effusions or pneumothorax. Lungs appear clear. Mediastinum: Mediastinal contours appear normal. Heart size is normal. IMPRESSION: Source of left-sided rib pain is not identified. Moderate osteoarthritis noted at the acromioclavicular joint and a fracture at the left shoulder is not found. Dictated by: Jemal Andrade M.D. on 01/06/2018 at 11:18 Approved by: Jemal Andrade M.D. on 01/06/2018 at 11:20 X-ray elbow: Radiologist's impression: PROCEDURE: XR ELBOW LT MIN 3V INDICATIONS: Fall with pain TECHNIQUE: No definite acute trauma found. views of the elbow were acquired. COMPARISON: None. FINDINGS: Bones: No f definite ractures or dislocations. No suspicious bony lesions. There is an angular cortical margin at the radial head/neck junction that with magnification views may represent a traction spur. Soft tissues: No elbow joint effusion. No suspicious soft tissue calcifications. IMPRESSION: A definite fracture is not found. Positioning of the patient does not reveal a definite effusion but the quality of the lateral view is quite limited. As noted there is a small angular cortical irregularity at the radial head/neck junction, that does not appear definitely acute. MR scanning would provide more accurate assessment as good delayed followup plain films. Dictated by: Jemal Andrade M.D. on 01/06/2018 at 12:52 Approved by: Jemal Andrade M.D. on 01/06/2018 at 12:55 Shoulder x-ray: Radiologist's impression: [address] [address] XRay Report Signed Patient: Esvin Coombs MMR#: [id number] : 7Acct:[id number] Age/Sex: 82 / MDate of Service: 01/06/18 Loc: ED Accession Number: [id number] Procedure: XR shoulder LT min 2V Ordering Provider: King Rodriguez D.O. PROCEDURE: XR SHOULDER LT MIN 2V INDICATIONS: Fall with pain TECHNIQUE: 3 views of the shoulder were acquired. COMPARISON: [facility], SHOULDER MINIMUM 2 VIEW LEFT, 06/24/2017, 10: 03. FINDINGS: Bones: No fractures or dislocations but there appears to be moderately severe a.c. joint osteoarthritis.. No suspicious bony lesions. Visualized ribs appear intact. Soft tissues: No suspicious soft tissue calcifications. IMPRESSION: Moderately severe a.c. joint osteoarthritis. Dictated by: Jemal Andrade M.D. on 01/06/2018 at 12:55 Approved by: Jemal Andrade M.D. on 01/06/2018 at 12:56 MDM Narrative Medical decision making narrative: Patient is not tender over the left-sided radial head. After talk with him he can move his elbow and shoulder without much discomfort. I have low suspicion for fracture. He did hit his head however he is alert oriented x3 not on any anticoagulation. He stated that he fell this episode because his left knee gave out on him. He states that this has happened to him in the past. He is tender over the left lower ribs. I was able to reproduce this with palpation of the ribs. I considered an intra- abdominal injury such as a splenic laceration or kidney injury however will hold on CT scan for now because I was able to reproduce the pain that he was having with palpation of his lower ribs. There were no fractures on the rib x- rays. Patient has had rib fractures in the past. We did discuss pain control. We discussed the importance of taking big deep breath. We did discuss return precautions. He expressed understanding and agreement with plan. Discharge Plan Departure Patient Disposition: Home Clinical Impression: Left-sided chest wall pain, Fall Instructions: DI for Rib Contusion, How to Prevent Falls Activity Restrictions/Additional Instructions: Recommend you take the medication like we discussed. I do recommend that every so often you take deep breaths. This may be uncomfortable but it is important to prevent complications such as pneumonia. Call your primary care doctor to discuss a referral to see the ear nose and throat doctors. Return to the emergency department for any new or worsening symptoms. Prescriptions: New oxycodone-acetaminophen 5-325 mg tablet 1 tab PO Q4-6H PRN (Reason: pain) Qty: 14 RF: 0 No Action lisinopril-hydrochlorothiazide 20-12.5 mg tablet 1 tab PO DAILY RF: 0 amlodipine 5 mg tablet 5 mg PO DAILY RF: 0 allopurinol 300 mg tablet 1 tab PO DAILY RF: 0 aspirin 81 mg Tablet,Delayed Release (Dr/Ec) 81 mg PO DAILY RF: 0 hydrocodone-acetaminophen 5-325 mg tablet 1 tab PO Q4-6H PRN (Reason: pain) Qty: 14 RF: 0
[2018-01-06 10:40] VITALS: BP 155/83; PULSE 81; RESP 18; TEMP 37.2; O2SAT 98; BMI 29.8
--- NOTE | 2018-01-06 10:44 | DI.RAD.S_ITS ---
PROCEDURE: XR RIBS LT MIN 3V W CXR1V INDICATIONS: Fall left-sided rib pain TECHNIQUE: 4 views of the left ribs were acquired, along with a single view chest. COMPARISON: [facility], , XR CHEST 1V, 11/20/2017, 15:25. FINDINGS: Surgical changes and devices: None. Bones and chest wall: No fractures or dislocations. No suspicious bony lesions. Overlying soft tissues appear unremarkable. Lungs and pleura: No pleural effusions or pneumothorax. Lungs appear clear. Mediastinum: Mediastinal contours appear normal. Heart size is normal. IMPRESSION: Source of left-sided rib pain is not identified. Moderate osteoarthritis noted at the acromioclavicular joint and a fracture at the left shoulder is not found. Dictated by: Jemal Andrade M.D. on 01/06/2018 at 11:18 Approved by: Jemal Andrade M.D. on 01/06/2018 at 11:20
[2018-01-06] MEDS: HYDROCODONE/ACET 5/325 TABLET 1 TAB PO (11:51)
--- NOTE | 2018-01-06 12:14 | DI.RAD.S_ITS ---
PROCEDURE: XR ELBOW LT MIN 3V INDICATIONS: Fall with pain TECHNIQUE: No definite acute trauma found. views of the elbow were acquired. COMPARISON: None. FINDINGS: Bones: No f definite ractures or dislocations. No suspicious bony lesions. There is an angular cortical margin at the radial head/neck junction that with magnification views may represent a traction spur. Soft tissues: No elbow joint effusion. No suspicious soft tissue calcifications. IMPRESSION: A definite fracture is not found. Positioning of the patient does not reveal a definite effusion but the quality of the lateral view is quite limited. As noted there is a small angular cortical irregularity at the radial head/neck junction, that does not appear definitely acute. MR scanning would provide more accurate assessment as good delayed followup plain films. Dictated by: Jemal Andrade M.D. on 01/06/2018 at 12:52 Approved by: Jemal Andrade M.D. on 01/06/2018 at 12:55
--- NOTE | 2018-01-06 12:14 | DI.RAD.S_ITS ---
PROCEDURE: XR SHOULDER LT MIN 2V INDICATIONS: Fall with pain TECHNIQUE: 3 views of the shoulder were acquired. COMPARISON: [facility], , SHOULDER MINIMUM 2 VIEW LEFT, 06/24/2017, 10:03. FINDINGS: Bones: No fractures or dislocations but there appears to be moderately severe a.c. joint osteoarthritis.. No suspicious bony lesions. Visualized ribs appear intact. Soft tissues: No suspicious soft tissue calcifications. IMPRESSION: Moderately severe a.c. joint osteoarthritis. Dictated by: Jemal Andrade M.D. on 01/06/2018 at 12:55 Approved by: Jemal Andrade M.D. on 01/06/2018 at 12:56
--- NOTE | 2018-01-06 12:52 | PC.NURSE ---
pt states, fell 5 weeks ago, sustained 2 rib fx, today, left knee just gave out and he fell, now with left shoulder,elbow and left rib pain, admits hitting head but denies loc and neck pain. states, no relieve from vicodin.
[2018-01-06 13:10] VITALS: BP 131/80; PULSE 51; RESP 16; O2SAT 96
[2018-01-06] MEDS: KETOROLAC 60 MG/2 ML VIAL 30 MG IM (13:34)
[2018-01-06 14:26] VITALS: BP 124/79; PULSE 70; RESP 20; O2SAT 97
== END 2018-01-06 14:26 | disposition home or self-care (01) ==
PROVIDERS: Emergency Provider Emergency Medicine; PCP Internal Medicine
DX: R07.89 Other chest pain (principal); W18.30XA Fall on same level, unspecified, initial encounter
CPT/HCPCS: 71101; 73030; 73080; 96372; 99283; J1885

== ENCOUNTER → 2018-02-03 15:02 | Outpatient (CLI) | payer MEDICARE, OTHER, SELFPAY ==
--- NOTE | 2018-02-03 | DI.RAD.S_ITS ---
PROCEDURE: XR CHEST 2V INDICATIONS: DYSPNEA TECHNIQUE: 2 views of the chest were acquired. COMPARISON: [facility], CR, XR CHEST 2 VIEWS, 01/13/2018, 17:48. [facility], CR, XR CHEST 1V, 11/20/2017, 15:25. FINDINGS: Surgical changes and devices: None. Lungs and pleura: No pleural effusions or pneumothorax. A subtle nodular radiopacity is present at the left lung base. This is new when compared with the prior study dated 01/13/18. No other acute air space opacities. Mediastinum: Mediastinal contours are normal. Heart size is normal. Bones and chest wall: No suspicious bony abnormalities. Soft tissues appear unremarkable. IMPRESSION: Questionable left basilar pulmonary nodule. Short interval followup recommended. No other acute cardiopulmonary findings. Dictated by: Sade Guevara M.D. on 02/03/2018 at 15:35 Approved by: Sade Guevara M.D. on 02/03/2018 at 15:36
== END ==
PROVIDERS: PCP Internal Medicine; Visit Provider Student in an Organized Health Care Education/Training Program
DX: R06.00 Dyspnea, unspecified (principal); R60.9 Edema, unspecified
CPT/HCPCS: 71046

== ENCOUNTER 2018-02-12 16:58 | Emergency (ER) | payer MEDICARE, OTHER, SELFPAY ==
[2018-02-12 17:02] VITALS: BP 161/93; PULSE 107; RESP 20; TEMP 36.7; O2SAT 95
--- NOTE | 2018-02-12 18:05 | ED.BACK ---
HPI - Back Pain/Injury General Chief Complaint: Back Pain/Injury Stated Complaint: NOT ABLE TO MOVE NECK Time Seen by Provider: 02/12/18 18:05 Source: patient Mode of arrival: ambulatory Limitations: no limitations History of Present Illness HPI Narrative: 82-year-old male here for evaluation of right-sided neck pain. He states that it started in the past 24 hr and specifically started worsening since this morning. No trauma. He does state that it hurts to open his mouth. Has pain along the right side of his jaw and along the back of his head. He states that he has had pain in his right lower back in the past. He seemed to think that the pain in his jaw has migrated up from that point. No fevers. No problems swallowing. No breathing. Has had some sinus congestion recently. Does have right ear pain. Related Data Home Medications Medication Instructions Recorded Confirmed allopurinol 1 tab PO DAILY 11/20/17 11/20/17 amlodipine 5 mg PO DAILY 11/20/17 02/12/18 aspirin 81 mg PO DAILY 11/20/17 11/20/17 lisinopril-hydrochlorothiazide 1 tab PO DAILY 11/20/17 02/12/18 allopurinol 300 mg PO DAILY 02/12/18 02/12/18 chlorthalidone 25 mg PO DAILY 02/12/18 02/12/18 Previous Rx's Medication Instructions Recorded hydrocodone-acetaminophen 1 tab PO Q4-6H PRN #14 tab 11/20/17 oxycodone-acetaminophen 1 tab PO Q4-6H PRN #14 tab 01/06/18 cyclobenzaprine 10 mg PO TID PRN #12 tab 02/12/18 tramadol 50 mg PO Q6H PRN #14 tab 02/12/18 Allergies Allergy/AdvReac Type Severity Reaction Status Date / Time No Known Drug Allergies Allergy Unverified 01/06/18 10:40 Review of Systems Constitutional Denies fever(s) and Denies headache(s) Eyes Denies blurry vision and Denies diplopia ENT Ears, Nose, Mouth, and Throat: Denies dental pain, Denies dizziness, Denies dry mouth, Denies ear discharge, Reports otalgia, Denies headache(s), Denies lip swelling, Reports neck pain, Denies disequilibrium, Denies sinus pressure, Denies sore throat, Denies throat swelling and Denies tongue swelling Cardiovascular Denies chest pain, Denies palpitations and Denies dyspnea Respiratory Denies cough and Denies dyspnea Musculoskeletal Denies myalgias, Denies arthralgias and Reports neck pain Integumentary/Breasts Denies rash Neurologic Denies dizziness, Denies headache(s) and Denies disequilibrium Endocrine Denies palpitations Hematologic/Lymphatic Denies easy bruising Allergic/Immunologic Denies lip swelling, Denies throat swelling and Denies tongue swelling PFSH Medical History Hypertension (Acute) Surgical History No pertinent past surgical history (Acute) Social History Smoking Status: Former smoker Exam Initial Vital Signs Initial Vital Signs: Vital Signs Temperature 98.0 F 02/12/18 17:02 Pulse Rate 107 H 02/12/18 17:02 Respiratory Rate 20 02/12/18 17:02 Blood Pressure 161/93 H 02/12/18 17:02 Pulse Oximetry 95 02/12/18 17:02 Const General: cooperative, healthy appearing, comfortable, well developed, well groomed and No acute distress Orientation: alert, awake and oriented x3 [facility] Head: normal to inspection and normocephalic Ears: TM's normal bilaterally Nose: external nose normal Face and sinus: normal facial exam Mouth: oral mucosae normal Throat: posterior oropharynx normal Resp Effort & Inspection: normal respiratory effort Auscultation: clear to auscultation bilaterally Cardio Rate: regular rate Rhythm: regular rhythm GI Inspection: non-distended Palpation: soft and No firm Skin Lesions: no lesions Rashes: no rashes Neuro General: alert, awake and oriented x3 Cognition: normal cognition Speech: speech normal Gait: normal gait Extrem General: normal to inspection and capillary refill normal Psych Appearance: grossly normal and well kempt Course Orders Ordered: Discontinued Medications Ketorolac Tromethamine (Toradol) 30 mg IM NOW ONE Stop: 02/12/18 18:37 Last Admin: 02/12/18 18:43 Dose: 30 mg Vital Signs - 8 hr 02/12/18 17:02 02/12/18 19:13 Temperature 98.0 F Pulse Rate 107 H 88 Respiratory Rate 20 16 Blood Pressure 161/93 H 133/93 H Pulse Oximetry 95 95 MDM - Back Pain/Injury MDM Narrative Medical decision making narrative: He has tenderness to palpation along the sternocleidomastoid muscle on the right. Seems to be the focus of his pain. He is also having pain along the posterior occipital portion of his scalp. I do not feel any lymph nodes lungs area. There is no skin changes consistent with zoster. He does have some trismus. Patient has some symptoms consistent with a viral upper respiratory infection however his bilateral tympanic membranes are unremarkable. He was given a shot of Toradol here in the ER. Will send home with muscle relaxers. We also sent home with a few Ultram. Will hold on further workup for now. Patient was given return precautions. He expressed understanding and agreement with plan. Discharge Plan Departure Patient Disposition: Home Clinical Impression: Acute neck pain Discharge Date/Time: 02/12/18 19:14 Interventions: ED Discharge Assessment Last Done: 02/12/18 19:13 Instructions: DI for Muscle Strain, DI for Cervical Muscle Strain Activity Restrictions/Additional Instructions: Recommend that you take the medications as directed. You can continue to use heat and ice as needed. This may take a couple days to improve. I recommend that you contact your primary care provider to discuss the edema in your legs. return to the ER for any new or worsening symptoms. Prescriptions: New cyclobenzaprine 10 mg tablet 10 mg PO TID PRN (Reason: muscle spasm) Qty: 12 RF: 0 tramadol 50 mg tablet 50 mg PO Q6H PRN (Reason: pain) Qty: 14 RF: 0 No Action lisinopril-hydrochlorothiazide 20-12.5 mg tablet 1 tab PO DAILY RF: 0 amlodipine 5 mg tablet 5 mg PO DAILY RF: 0 allopurinol 300 mg tablet 1 tab PO DAILY RF: 0 aspirin 81 mg Tablet,Delayed Release (Dr/Ec) 81 mg PO DAILY RF: 0 hydrocodone-acetaminophen 5-325 mg tablet 1 tab PO Q4-6H PRN (Reason: pain) Qty: 14 RF: 0 chlorthalidone 25 mg tablet 25 mg PO DAILY RF: 0 allopurinol 300 mg tablet 300 mg PO DAILY RF: 0 oxycodone-acetaminophen 5-325 mg tablet 1 tab PO Q4-6H PRN (Reason: pain) Qty: 14 RF: 0
[2018-02-12] MEDS: KETOROLAC 60 MG/2 ML VIAL 30 MG IM (18:43)
[2018-02-12 19:13] VITALS: BP 133/93; PULSE 88; RESP 16; O2SAT 95
== END 2018-02-12 19:14 | disposition home or self-care (01) ==
PROVIDERS: Emergency Provider Emergency Medicine; PCP Internal Medicine
DX: M54.2 Cervicalgia (principal)
CPT/HCPCS: 96372; 99282; 99283; J1885

== ENCOUNTER → 2018-09-28 14:02 | Outpatient (CLI) | payer MEDICARE, OTHER, SELFPAY | PROVIDERS: PCP Internal Medicine; Visit Provider Family Medicine | DX: S21.202A Unspecified open wound of left back wall of thorax without penetration into thoracic cavity, initial encounter (principal) | CPT/HCPCS: 99203; 99214 ==

== ENCOUNTER → 2018-10-01 10:57 | Outpatient (CLI) | payer MEDICARE, OTHER, SELFPAY | PROVIDERS: PCP Internal Medicine; Visit Provider Family Medicine | DX: S21.202A Unspecified open wound of left back wall of thorax without penetration into thoracic cavity, initial encounter (principal) | CPT/HCPCS: 99213 ==

== ENCOUNTER → 2018-10-04 11:18 | Outpatient (CLI) | payer MEDICARE, OTHER, SELFPAY | PROVIDERS: PCP Internal Medicine; Visit Provider Family Medicine | DX: S21.202D Unspecified open wound of left back wall of thorax without penetration into thoracic cavity, subsequent encounter (principal) | CPT/HCPCS: 99213 ==

== ENCOUNTER → 2018-10-05 12:47 | Outpatient (CLI) | payer MEDICARE, OTHER, SELFPAY | PROVIDERS: PCP Internal Medicine; Visit Provider Family Medicine | DX: S21.202D Unspecified open wound of left back wall of thorax without penetration into thoracic cavity, subsequent encounter (principal) | CPT/HCPCS: 99213 ==

== ENCOUNTER → 2018-10-12 13:14 | Outpatient (CLI) | payer MEDICARE, OTHER, SELFPAY | PROVIDERS: PCP Internal Medicine; Visit Provider Family Medicine | DX: S21.202D Unspecified open wound of left back wall of thorax without penetration into thoracic cavity, subsequent encounter (principal); L08.9 Local infection of the skin and subcutaneous tissue, unspecified | CPT/HCPCS: 99213 ==

== ENCOUNTER → 2018-10-14 15:20 | Outpatient (CLI) | payer MEDICARE, OTHER, SELFPAY | PROVIDERS: PCP Internal Medicine; Visit Provider Family Medicine | DX: L89.44 Pressure ulcer of contiguous site of back, buttock and hip, stage 4 (principal) | CPT/HCPCS: 99213 ==

== ENCOUNTER → 2018-10-19 15:24 | Outpatient (CLI) | payer MEDICARE, OTHER, SELFPAY | PROVIDERS: PCP Internal Medicine; Visit Provider Family Medicine | DX: S21.202A Unspecified open wound of left back wall of thorax without penetration into thoracic cavity, initial encounter (principal); L08.9 Local infection of the skin and subcutaneous tissue, unspecified | CPT/HCPCS: 11042 ==

== ENCOUNTER → 2018-10-22 14:05 | Outpatient (CLI) | payer MEDICARE, OTHER, SELFPAY | PROVIDERS: PCP Internal Medicine; Visit Provider Family Medicine | DX: I87.2 Venous insufficiency (chronic) (peripheral) (principal); L97.811 Non-pressure chronic ulcer of other part of right lower leg limited to breakdown of skin; S81.802A Unspecified open wound, left lower leg, initial encounter | CPT/HCPCS: 29580 ==

== ENCOUNTER → 2018-10-26 08:40 | Outpatient (CLI) | payer MEDICARE, OTHER, SELFPAY | PROVIDERS: PCP Internal Medicine; Visit Provider Family Medicine | DX: S21.202A Unspecified open wound of left back wall of thorax without penetration into thoracic cavity, initial encounter (principal); L08.9 Local infection of the skin and subcutaneous tissue, unspecified | CPT/HCPCS: 99213 ==

== ENCOUNTER → 2018-11-02 14:20 | Outpatient (CLI) | payer MEDICARE, OTHER, SELFPAY | PROVIDERS: PCP Internal Medicine; Visit Provider Family Medicine | DX: S21.202D Unspecified open wound of left back wall of thorax without penetration into thoracic cavity, subsequent encounter (principal) | CPT/HCPCS: 99212; 99213 ==

== ENCOUNTER 2019-05-15 16:33 | Emergency (ER) | payer MEDICARE, OTHER, SELFPAY ==
[2019-05-15 16:33] VITALS: BP 186/94; PULSE 72; RESP 18; TEMP 36.9; O2SAT 99; BMI 31.1
--- NOTE | 2019-05-15 16:54 | DI.CT.S_ITS ---
PROCEDURE: CT HEAD/BRAIN WO CON INDICATIONS: fall striking head TECHNIQUE: Noncontrast 4.5 mm thick angled axial sections acquired from the foramen magnum to the vertex, with coronal and sagittal reformats. For radiation dose reduction, the following was used: automated exposure control, adjustment of mA and/or kV according to patient size. COMPARISON: [facility], CT, HEAD WITHOUT CONTRAST, 05/22/2015, 8:03. [facility], CT, HEAD WITHOUT CONTRAST, 06/24/2017, 12:01. [facility], CT, CT CERVICAL SPINE WO CON, 05/15/2019, 17:11. [facility], CT, CT HEAD/BRAIN WO CON, 11/20/2017, 15:56. FINDINGS: Image quality: Excellent. CSF spaces: Basal cisterns are patent. No extra-axial fluid collections. The ventricles are symmetric in size and shape. Brain: No intracranial bleeds or masses. There is cerebral volume loss for age, with resultant ventricular and sulcal prominence. There are periventricular and deep white matter chronic small vessel ischemic changes. There is intracranial internal carotid artery atherosclerosis. Skull and face: Calvarium and visualized facial bones appear intact, without suspicious lesions. Sinuses: Focal mucosal thickening is seen within the right frontal sinus. IMPRESSION: No acute intracranial hemorrhage is seen. No acute intracranial process is seen. No displaced calvarial fracture can be seen. Focal right frontal sinus disease, which is similar to prior examinations. Dictated by: Luis Carlos Soni M.D. on 05/15/2019 at 16:51 Approved by: Luis Carlos Soni M.D. on 05/15/2019 at 16:53
--- NOTE | 2019-05-15 16:54 | DI.CT.S_ITS ---
PROCEDURE: CT CERVICAL SPINE WO CON INDICATIONS: neck stiffness and pain after fall TECHNIQUE: Noncontrast 3 mm thick sections acquired from the skull base to the T4 level. Sagittal and coronal reformats were then constructed. For radiation dose reduction, the following was used: automated exposure control, adjustment of mA and/or kV according to patient size. COMPARISON: [facility], CT, C-SPINE WITHOUT CONTRAST, 05/21/2015, 11:19. [facility], CT, CT HEAD/BRAIN WO CON, 05/15/2019, 17:11. [facility], CT, CT CERVICAL SPINE WO CON, 11/20/2017, 15:56. FINDINGS: Image quality: Excellent. Bones: No fractures or dislocations. Visualized superior ribs are intact. Postoperative changes are seen, with removal of portions of the posterior elements at C5 and C6. Degenerative changes are seen, with partial fusion at C3-C4 with moderate disc space narrowing at C4-C5 and with moderate to severe disc space narrowing at C5-C6, C6-C7, C7-T1, and T1-T2. Prominent facet arthropathy with partial bony fusion can be seen at C3-C4. Focal degenerative change is seen involving the C1-C2 interface anteriorly. Grade 1 anterolisthesis is seen at C4-C5. Soft tissues: Prevertebral soft tissues are normal in thickness. No paravertebral hematomas. No apical pneumothoraces. IMPRESSION: No acute fractures are detected. Advanced degenerative changes are seen. C5-C6 postoperative change with removal of portions of the posterior elements. Dictated by: Luis Carlos Soni M.D. on 05/15/2019 at 16:53 Approved by: Luis Carlos Soni M.D. on 05/15/2019 at 16:56
--- NOTE | 2019-05-15 16:54 | ED.FALL ---
HPI - Fall General Chief Complaint: Fall Stated Complaint: Fall Time Seen by Provider: 05/15/19 16:42 Source: patient and EMS Mode of arrival: EMS History of Present Illness HPI Narrative: HPI: The patient is an 83-year-old male who states that he was taking his dog out outside to walk when the dog saw another dog and took off running and pulled him over. The patient lost his balance fell and struck the left side of his head on the pavement as well as his left lower ribs. He did not lose consciousness but was question be slightly dazed. He complains of a headache at this time, as well as mild neck discomfort and stiffness. He complains that his ribs are sore on the left side. He did not fall on any object. He complains of a headache at this time but no numbness tingling paresthesias paralysis or paresis. He denies any loss of vision change in vision. He has had no fever chills or sweats. He has been dizzy and lightheaded since he fell but has had no shortness of breath or cough. He denies any abdominal pain nausea vomiting or urinary symptoms. He was not incontinent of urine or stool after his fall. Related Data Home Medications Medication Instructions Recorded Confirmed amlodipine 5 mg PO DAILY 11/20/17 09/24/18 aspirin 81 mg PO DAILY 11/20/17 09/24/18 lisinopril-hydrochlorothiazide 1 tab PO DAILY 11/20/17 09/24/18 allopurinol 300 mg PO DAILY 02/12/18 09/24/18 chlorthalidone 25 mg PO DAILY 02/12/18 09/24/18 cyanocobalamin (vitamin B-12) 1,000 mcg PO DAILY 09/21/18 09/24/18 1,000 mcg capsule guaifenesin 100 mg/5 mL oral liquid 200 mg PO Q6H PRN 09/21/18 09/24/18 lorazepam 0.5 mg tablet 0.5 mg PO BEDTIME PRN 09/21/18 09/24/18 metoprolol tartrate 25 mg tablet 12.5 mg PO BID 09/21/18 09/24/18 rosuvastatin 10 mg tablet 10 mg PO DAILY 09/21/18 09/24/18 sertraline 50 mg tablet 50 mg PO DAILY 09/21/18 09/24/18 Previous Rx's Medication Instructions Recorded hydrocodone-acetaminophen 1 tab PO Q4-6H PRN #14 tab 11/20/17 cyclobenzaprine 5 mg PO TID PRN #15 tab 05/15/19 naproxen [Naprosyn] 500 mg PO BID PRN #20 tab 05/15/19 Allergies Allergy/AdvReac Type Severity Reaction Status Date / Time No Known Drug Allergies Allergy Verified 05/15/19 16:40 Review of Systems Review of Systems Narrative: The patient's review of systems are all negative except for those mentioned in the history of present illness. Patient History Medical History Allergic rhinitis (Chronic) Arachnoid cyst (Chronic) B12 deficiency (Chronic) Cellulitis (Resolved) Chronic kidney disease (Chronic) Degenerative cervical disc (Chronic) DVT (deep venous thrombosis) (Resolved) Gouty arthropathy (Chronic) Hearing loss (Acute) Hypertension (Acute) Osteoarthritis (Chronic) Peptic ulcer disease (Chronic) Prostate cancer (Chronic) Vertigo (Chronic) Surgical History History of knee replacement (Resolved) Hx of appendectomy (Resolved) Hx of laminectomy (Resolved) Hx of radical prostatectomy (Resolved) Hx of rotator cuff surgery (Resolved) Hx of thumb surgery (Resolved) No pertinent past surgical history (Acute) Social History Smoking Status: Former smoker Smoking Status: Former smoker alcohol intake frequency: holidays/special occasions only Substance Use Type: does not use Exam Narrative Exam Narrative: PHYSICAL EXAM: CONSTITUTIONAL: Awake, answers questions appropriately but is very hard of hearing. He does not appear toxic or ill. HEAD: Grossly normocephalic. He is tender to palpation along the left parietal scalp without hematoma. EENT: PERRL, FROM of eyes, no discharge,. The patient's external auditory canals are clear and does not reveal any hemotympanum. Oral mucosa is moist and pink, posterior pharynx is without erythema or exudate. NECK: Supple, no obvious JVD, Trachea is midline without stridor, no palpable LN . SPINE: No gross deformity, no palpable tenderness of the cervical, thoracic, lumbar or sacral spine. The patient has tenderness to palpation along the left paraspinous muscles. No CVA tenderness. THORAX: No deformity, retractions, left lateral ribs are tender to palpation. There is no subcutaneous air. LUNGS: Clear with symmetrical breath sounds without respiratory distress HEART: Normal heart tones, regular rhythm and rate without murmur. ABDOMEN: Soft, non-tender, normal bowel sounds without guarding, rebound, rigidity or palpable mass . EXTREMITIES: No edema, cyanosis, deformity or tenderness. SKIN: No rash, bruising, petechiae or purpura. NEURO: Awake, alert, oriented, conversive, cranial nerves II-XII are symmetrical and normal, moves all 4 extremities and is ambulatory Initial Vital Signs Initial Vital Signs: Vital Signs Temperature 98.4 F 05/15/19 16:33 Pulse Rate 72 05/15/19 16:33 Respiratory Rate 18 05/15/19 16:33 Blood Pressure 186/94 H 05/15/19 16:33 Pulse Oximetry 99 05/15/19 16:33 Course Course Course Narrative: The patient's EKG obtained at 17:4 5:49 a.m. reveals that he has a sinus bradycardia with a ventricular rate of 57 intervals are normal with left axis deviation. The patient has a right bundle branch block without any acute diagnostic ST segment changes. The patient has T-wave inversions in leads III and V1. There are no other acute diagnostic ST segment changes. 1749 the patient's correctionhome economist called and stated that the patient needs to be cleared of any communicable infectious diseases. I explained to them that he has not had any cough fever shortness of breath and that we are not going to order a laurent virus screen on him at this time because it is not indicated. The patient has not had any fever shortness of breath or cough. They would like us to put that in his discharge summary when he is sent back. 1930 the patient has a white blood count is within normal limits hemoglobin hematocrit are normal and electrolytes are normal as well as liver function tests. CT of the Chest: Reveals no acute rib fractures. There are remote healed left posterior rib fractures seen no evidence of a pneumothorax no other traumatic injuries. CT neck: CT of the cervical spine reveals no acute fractures detected. Advanced degenerative changes are seen. C5-C6 postoperative changes with removal of portions of the posterior elements CT Head/ Brain: CT of the patient's brain reveals no acute intracranial hemorrhage is seen. There is no displaced calvarial fractures. There is no acute intracranial process seen. There is focal right frontal sinus disease present which is similar to previous exams. The patient will be ambulated and discharged. Report given to Dr. Rodriguez. The patient ambulated in the hallway without any difficulty. Orders Ordered: Discontinued Medications Morphine Sulfate (Morphine) 2 mg IV NOW ONE Stop: 05/15/19 17:00 Last Admin: 05/15/19 18:07 Dose: 2 mg Documented by: MESFIN Ondansetron HCl (Zofran) 4 mg IV NOW ONE Stop: 05/15/19 17:03 Last Admin: 05/15/19 18:06 Dose: 4 mg Documented by: MESFIN Vital Signs Vital signs: Vital Signs - 8 hr 05/15/19 16:33 05/15/19 18:10 05/15/19 19:53 Temperature 98.4 F Pulse Rate 72 68 71 Respiratory Rate 18 17 16 Blood Pressure 186/94 H Blood Pressure [Right Arm] 162/91 H 165/90 H Pulse Oximetry 99 95 96 MDM - Fall Lab Data Labs: Urine Dip Bedside Urine Glucose Negative Bedside Urine Bilirubin - Negative Bedside Urine Ketone - Negative Urine Specific [place] 1.020 Bedside Urine Occult Blood - Negative Bedside Urine pH 6.5 Bedside Urine Protein - Negative Bedside Urine Urobilinogen - Negative Bedside Urine Nitrite - Negative Bedside Urine Leukocytes - Negative Esterase Discharge Plan Departure Patient Disposition: Home Clinical Impression: Pain in rib Fall Qualifiers: Encounter type: initial encounter Qualified Code(s): W19.XXXA - Unspecified fall, initial encounter Head injury Qualifiers: Encounter type: initial encounter Qualified Code(s): S09.90XA - Unspecified injury of head, initial encounter Injury of neck Qualifiers: Encounter type: initial encounter Qualified Code(s): S19.9XXA - Unspecified injury of neck, initial encounter Discharge Date/Time: 05/15/19 20:25 Instructions: DI for Costochondritis, DI for Muscle Strain, DI for Rib Contusion, DI for Closed Head Injury Activity Restrictions/Additional Instructions: 1. Your CT scan of your chest reveals no infiltrate pneumonia or acute cardiopulmonary pathology. You have evidence of old remote to left posterior rib fractures but no new fractures. Your CT scans of the head reveals no fracture or hemorrhage or acute intracranial pathology. CT of your neck reveals no fracture malalignment but also degenerative changes. 2. Your vital signs revealed that your blood pressure is 162/91 heart rate is 68, respiratory rate 17 without any cough oxygen saturation is 95-99% on room air and you temperature is normal at 98.4 degrees F. 3. For any pain and discomfort take Naprosyn 500 mg twice a day as needed for pain and discomfort in for any muscle spasms cyclobenzaprine 5 mg 3 times a day. 4. Follow-up in be re-evaluated by your primary care physician in 48-72 hours. Return to the emergency department if you develop worsening pain worsening shortness of breath rapid heart rate or passing out. Prescriptions: New naproxen [Naprosyn] 500 mg tablet 500 mg PO BID PRN (Reason: pain) Qty: 20 RF: 0 cyclobenzaprine 5 mg tablet 5 mg PO TID PRN (Reason: muscle spasm) Qty: 15 RF: 0 No Action cyanocobalamin (vitamin B-12) 1,000 mcg capsule 1,000 mcg PO DAILY RF: 0 guaifenesin 100 mg/5 mL liquid 200 mg PO Q6H PRNRF: 0 lorazepam 0.5 mg tablet 0.5 mg PO BEDTIME PRNRF: 0 metoprolol tartrate 25 mg tablet 12.5 mg PO BID RF: 0 rosuvastatin 10 mg tablet 10 mg PO DAILY RF: 0 sertraline 50 mg tablet 50 mg PO DAILY RF: 0 lisinopril-hydrochlorothiazide 20-12.5 mg tablet 1 tab PO DAILY RF: 0 amlodipine 5 mg tablet 5 mg PO DAILY RF: 0 aspirin 81 mg Tablet,Delayed Release (Dr/Ec) 81 mg PO DAILY RF: 0 hydrocodone-acetaminophen 5-325 mg tablet 1 tab PO Q4-6H PRN (Reason: pain) Qty: 14 RF: 0 chlorthalidone 25 mg tablet 25 mg PO DAILY RF: 0 allopurinol 300 mg tablet 300 mg PO DAILY RF: 0 Referrals: Duke Felix MD [Primary Care Provider] -
--- NOTE | 2019-05-15 16:57 | DI.CT.S_ITS ---
PROCEDURE: CT CHEST WO CON INDICATIONS: fall with left rib pain TECHNIQUE: Noncontrast 5 mm thick sections acquired from the pulmonary apices to the posterior costophrenic angles. 1 mm lung window, 5 mm thick coronal and sagittal and 7 mm axial MIP reformats were then acquired. For radiation dose reduction, the following was used: automated exposure control, adjustment of mA and/or kV according to patient size. COMPARISON: [facility], CT, CT CHEST ABD PEL W CON, 11/20/2017, 16:19. [facility], CT, CT HEAD/BRAIN WO CON, 05/15/2019, 17:11. [facility], CT, CT CERVICAL SPINE WO CON, 05/15/2019, 17:11. FINDINGS: Image quality: Excellent. Lungs and pleura: No acute air space opacities. No pleural effusions or pneumothorax. Central and peripheral airways are patent and normal in caliber. Mediastinum: Heart size is normal. No pericardial effusion. No mediastinal adenopathy by size criteria. Thoracic aorta and central pulmonary arteries are normal in size. Esophagus is normal in caliber. No hiatal hernia. Bones and chest wall: In this patient with this given history, scrutiny is given to the left ribs. No acute rib fractures are seen. Remote left posterior rib fractures can be seen, with healing change, which have healed since 2018. No suspicious bony lesions. Age-appropriate bony degenerative changes are seen. Mild levoconvex scoliotic curvature is noted. No vertebral body compression fractures. No axillary or supraclavicular adenopathy by size criteria. Thyroid gland demonstrates no significant noncontrast abnormality. Abdomen: There is a stable right adrenal mass seen that measures 3.7 cm. There is a stable left adrenal nodule seen that measures up to 1.7 cm. Simple appearing right renal cysts are seen. There is a stable presumed liver cyst versus hemangioma, as on series 2 image 56. The visualized portions of the upper abdominal structures are otherwise unremarkable for imaging technique. IMPRESSION: No acute rib fractures are seen. There are remote, healed left posterior rib fracture seen. No pneumothorax is seen. Incidental note is made of: Stable liver cyst versus hemangioma Simple appearing right renal cyst Stable bilateral adrenal nodules Dictated by: Luis Carlos Soni M.D. on 05/15/2019 at 16:57 Approved by: Luis Carlos Soni M.D. on 05/15/2019 at 17:02
--- NOTE | 2019-05-15 18:04 | PC.NURSE ---
pt complained of chest pain after being flat on the ct scanner. left chest wall. Dr. Roldan aware
[2019-05-15] MEDS: ONDANSETRON 4 MG/2 ML INJ IV (18:06)
[2019-05-15] MEDS: MORPHINE 2 MG/ML INJ IV (18:07)
[2019-05-15 18:10] VITALS: BP 162/91; PULSE 68; RESP 17; O2SAT 95
[2019-05-15 19:53] VITALS: BP 165/90; PULSE 71; RESP 16; O2SAT 96
--- NOTE | 2019-05-15 19:57 | PC.NURSE ---
Walked patient up and down the hallway. Patient used a cane. Patient was steady on feet.
[2019-05-15 20:24] VITALS: BP 173/113; PULSE 73; RESP 16; O2SAT 97
== END 2019-05-15 20:25 | disposition home or self-care (01) ==
PROVIDERS: Emergency Provider Emergency Medicine; PCP Internal Medicine; Referring Provider Internal Medicine
DX: R07.81 Pleurodynia (principal); S09.90XA Unspecified injury of head, initial encounter; S19.9XXA Unspecified injury of neck, initial encounter; R00.1 Bradycardia, unspecified; W19.XXXA Unspecified fall, initial encounter
CPT/HCPCS: 36415; 70450; 71250; 72125; 81003; 93005; 96374; 96375; 99285; J2270; J2405

== ENCOUNTER 2019-05-16 13:00 | Outpatient (RCR) | payer MEDICARE, OTHER, SELFPAY ==
--- NOTE | 2019-05-11 14:28 | PT.OIE ---
Current Diagnoses Pain in left shoulder (05/11/19) Pain in unspecified shoulder (05/11/19) Abnormal posture (05/11/19) Weakness (05/11/19) Past Medical History (Last Updated 09/21/18 @ 11:25 by Komal Strauss, RUSSELL) Allergic rhinitis (Chronic) Arachnoid cyst (Chronic) B12 deficiency (Chronic) Cellulitis (Resolved) Chronic kidney disease (Chronic) Degenerative cervical disc (Chronic) DVT (deep venous thrombosis) (Resolved) Gouty arthropathy (Chronic) Hearing loss (Acute) Hypertension (Acute) Osteoarthritis (Chronic) Peptic ulcer disease (Chronic) Prostate cancer (Chronic) Vertigo (Chronic) Past Surgical History (Last Updated 09/21/18 @ 11:29 by Komal Strauss RN) History of knee replacement (Resolved) Hx of appendectomy (Resolved) Hx of laminectomy (Resolved) Hx of radical prostatectomy (Resolved) Hx of rotator cuff surgery (Resolved) Hx of thumb surgery (Resolved) No pertinent past surgical history (Acute) Visit Care Team Role Provider Type Duke Felix MD Attending Provider Physician Primary Care Provider Referring Provider Specialty: Internal Medicine Address: [address] [place] [address] Email: [email or web address] [facility] Initial Evaluation PT-OP-A Visit Information Start: 05/11/19 11:20 Freq: Status: Active Protocol: Document 05/11/19 13:42 [facility] (Rec: 05/11/19 14:27 [facility] [id number]) Out-Patient Physical Therapy Visit Information Visit Information Visit Type Initial Evaluation Visit Note 03/11 Visit Start Time 13:00 Visit Stop Time 13:58 Total Visit Minutes 58 Visit Number 1 Number of GALLERY ASSISTANT Visits 0 PT-OP-B Current Condition Start: 05/11/19 11:20 Freq: Status: Active Protocol: Document 05/11/19 13:42 [facility] (Rec: 05/11/19 14:27 [facility] [id number]) Current Condition History of Current Condition Onset Date 10 days ago Current Complaints L shoulder pain History of Current Condition Pt presents w/C/o L shoulder pain that started about 10 days ago when he was lifting overhead with a big crate and it started to fall and he tried to catch it and heard a pop and had pain> Pt reports he cont workng but his hsoulder has been bothering him since this. He is having pain with reaching movements and has a lot fo organization that he needs to cont to do. 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 Notes that he has some pain into ant forearm sometimes. Prior Treatments and Tests Xray on L shoulder showed L shoulder AC arthritis Treatment Goals Patient/Caregiver Goals to have no further problems, reapair the shoulder best as possible and be able to do all movements normally Personal Factors Other Personal Factors That May Effect hx of R RCR & biceps Therapy/Recovery reattachment, neck pain w/hx of 3 level lami, B thumb sx, R ulnar n sx, B TKA, back pain, prostate CA (now CA free), L shoulder cyst that required wound care (now closed) PT-OP-C Subjective Start: 05/11/19 11:20 Freq: Status: Active Protocol: Document 05/11/19 13:42 [facility] (Rec: 05/11/19 14:27 [facility] [id number]) Patient Questionnaires Quick Dash- Upper Extremity Quick Dash UE Score 25 OP-PT Pain Assessment Location L shoulder Pain Location Details L ant & lat shoulder & biceps Description With Movement Frequency Daily Radiating Location in ant forearm Other Pain Aggravating Factors reaching, turning off lamp, overhead Pain Alleviating Factors Cold PT-OP-F Manual Assessment Start: 05/11/19 11:20 Freq: Status: Active Protocol: Document 05/11/19 13:42 [facility] (Rec: 05/11/19 14:27 [facility] [id number]) Manual Assessments Soft Tissue Assessment Soft Tissue Mobility Assessment tendernessin L UT, supraspinatus, infraspinatus & biceps ; tightness B pecs PT-OP-J Posture/Palpation/Skin Start: 05/11/19 11:20 Freq: Status: Active Protocol: Document 05/11/19 13:42 [facility] (Rec: 05/11/19 14:27 [facility] [id number]) Posture Evaluation Comments Posture Comments fwd head & shoulders with inc kyphosis PT-OP-K Range of Motion Start: 05/11/19 11:20 Freq: Status: Active Protocol: Document 05/11/19 13:42 [facility] (Rec: 05/11/19 14:27 [facility] [id number]) Shoulder Goniometric Range of Motion Shoulder Right Active Flexion 150 Abduction 145 External Rotation at 0 degrees Abduction 72 Internal Rotation Behind Back (text) L1 Left Passive Flexion 160 Abduction 82 Left Active Testing Position Standing Flexion 85 Abduction 65 External Rotation at 0 degrees Abduction 72 Internal Rotation Behind Back (text) T10 PT-OP-L Special Tests Start: 05/11/19 11:20 Freq: Status: Active Protocol: Document 05/11/19 13:42 [facility] (Rec: 05/11/19 14:27 [facility] [id number]) Special Tests Shoulder Special Tests Drop Arm Rotator Cuff Test Results negative Grind Labrum Test Results negative Neer Impingement Test Results positive L Antonio Alessio Impingement Test Results positive L Lift-Off Rotator Cuff Test Results positive L Empty Can Test Results positive L PT-OP-M Strength Start: 05/11/19 11:20 Freq: Status: Active Protocol: Document 05/11/19 13:42 [facility] (Rec: 05/11/19 14:27 [facility] [id number]) Shoulder Strength Shoulder Manual Muscle Testing Right Flexion 4+ Good+ Extension 4- Good- External Rotation 3+ Fair+ Internal Rotation 4 Good Left Flexion 2+ Poor+ Abduction (C5) 2+ Poor+ External Rotation 4- Good- Internal Rotation 4 Good Elbow/Forearm Strength Elbow and Forearm Manual Muscle Testing Right Flexion (C6) 4 Good Extension (C7) 4 Good Pronation 4+ Good+ Supination 4 Good Comments Popping in R wrist w/motions Left Flexion (C6) 4 Good Extension (C7) 4 Good Pronation 4 Good Supination 4 Good Wrist Strength Wrist Manual Muscle Testing Left Flexion (C7) 4- Good- Extension (C6) 4 Good PT-OP-Q Treatments Start: 05/11/19 11:20 Freq: Status: Active Protocol: Document 05/11/19 13:42 [facility] (Rec: 05/11/19 14:27 [facility] [id number]) Therapeutic Exercises Supine Exercises HABd Supine Exercise Name AAROM Side left Equipment Used cane Reps/Minutes 10 ER Supine Exercise Name at side Side left Equipment Used cane Reps/Minutes 10 Comments AAROM flex Supine Exercise Name AAROM Side left Equipment Used cane Reps/Minutes 10 PT-OP-R Modalities Start: 05/11/19 11:20 Freq: Status: Active Protocol: Document 05/11/19 13:42 [facility] (Rec: 05/11/19 14:28 [facility] [id number]) Hot Pack/Cold Pack Treatment Cold Pack Location L shoulder Patient Position Sidelying Treatment Duration (minutes) 10 Patient Tolerance Good PT-OP-T Assessment and Plan Start: 05/11/19 11:20 Freq: Status: Active Protocol: Document 05/11/19 13:42 [facility] (Rec: 05/11/19 14:27 [facility] [id number]) Physical Therapy Assessment Rehab Potential Rehabilitation Potential Good Evaluation Complexity Number of Personal Factors/Comorbidities 3 or More Number of Body Systems Impaired 4 or More Clinical Presentation at Evaluation Evolving Impairments Impairments Activity Tolerance,Functional Activities,Functional Mobility ,Pain,Posture,ROM,Soft Tissue Mobility,Strength Goals activities Short Term Goal (STG) Pt willb e able to turn of lamp without inc pain. STG Duration 06/11/19 Hazardous Substances Engineer Goal (LTG) Pt will be able to do overhead & reaching activities without inc in pain. LTG Duration 07/11/19 Strength Short Term Goal (STG) Pt will be indep with HEP. STG Duration 06/11/19 Mcc Goal (LTG) Pt will have 4+/5 LUE strength in order to allow him to have greater ease with his typical home activities. LTG Duration 07/11/19 ROM Short Term Goal (STG) Pt will imrpove L shoulder flex and abd to 100 degrees. STG Duration 06/11/19 Hazardous Substances Engineer Goal (LTG) Pt will have full L shoulder ROM as compared to R in order to allow him to complete home tasks without issue. LTG Duration 07/11/19 Assessment Summary Assessment Pt presents with L shoulder pain after overhead injury consisitant with signs of L rotator cuff injury. He has limited overhead and reaching ROM with overall dec LUE strength, which limits his ability to do his typical home activities. He would bneefit from skilled PT in order to improve his LUE ROM, strength and functional mobility while dec his overall pain. Physical Therapy Plan Frequency and Duration Frequency of Treatment 2x/Week Duration of Treatment 2 months Plan of Care Start Date 05/11/19 Plan of Care End Date 07/11/19 Therapeutic Interventions Therapeutic Interventions Aquatic Therapy,Home Exercise Program,Joint Mobilizations, Manual Therapy,Neuromuscular Re-education,Patient/Caregiver Education,Self-Care/Home Management,Soft Tissue Mobilization,Taping, Therapeutic Activities, Therapeutic Exercises Modalities Cold Pack/Ice Massage,Electric Stimulation,Hot Packs, Ultrasound Next Visit Focus/Plan Next Note Type Treatment Note Next Visit Plan review HEP, pullys, UBE, AAROM into all planes, try rows if painfree, STM to L shoulder & gentle GH mobs
--- NOTE | 2019-05-11 14:28 | PT.OPPOC ---
Physical, Occupational & Speech Therapy At [facility] Current Diagnoses Pain in left shoulder (05/11/19) Pain in unspecified shoulder (05/11/19) Abnormal posture (05/11/19) Weakness (05/11/19) Visit Care Team Role Provider Type Duke Felix MD Attending Provider Physician Primary Care Provider Referring Provider Specialty: Internal Medicine Address: [address] [place] [address], [facility] Email: [email or web address] Plan Of Care PT-OP-T Assessment and Plan Start: 05/11/19 11:20 Freq: Status: Active Protocol: Document 05/11/19 13:42 [facility] (Rec: 05/11/19 14:27 [facility] [id number]) Physical Therapy Assessment Rehab Potential Rehabilitation Potential Good Evaluation Complexity Number of Personal Factors/Comorbidities 3 or More Number of Body Systems Impaired 4 or More Clinical Presentation at Evaluation Evolving Impairments Impairments Activity Tolerance,Functional Activities,Functional Mobility ,Pain,Posture,ROM,Soft Tissue Mobility,Strength Goals activities Short Term Goal (STG) Pt willb e able to turn of lamp without inc pain. STG Duration 06/11/19 Mcfp Goal (LTG) Pt will be able to do overhead & reaching activities without inc in pain. LTG Duration 07/11/19 Strength Short Term Goal (STG) Pt will be indep with HEP. STG Duration 06/11/19 Books Binder Goal (LTG) Pt will have 4+/5 LUE strength in order to allow him to have greater ease with his typical home activities. LTG Duration 07/11/19 ROM Short Term Goal (STG) Pt will imrpove L shoulder flex and abd to 100 degrees. STG Duration 06/11/19 Mcfp Goal (LTG) Pt will have full L shoulder ROM as compared to R in order to allow him to complete home tasks without issue. LTG Duration 07/11/19 Assessment Summary Assessment Pt presents with L shoulder pain after overhead injury consisitant with signs of L rotator cuff injury. He has limited overhead and reaching ROM with overall dec LUE strength, which limits his ability to do his typical home activities. He would bneefit from skilled PT in order to improve his LUE ROM, strength and functional mobility while dec his overall pain. Physical Therapy Plan Frequency and Duration Frequency of Treatment 2x/Week Duration of Treatment 2 months Plan of Care Start Date 05/11/19 Plan of Care End Date 07/11/19 Therapeutic Interventions Therapeutic Interventions Aquatic Therapy,Home Exercise Program,Joint Mobilizations, Manual Therapy,Neuromuscular Re-education,Patient/Caregiver Education,Self-Care/Home Management,Soft Tissue Mobilization,Taping, Therapeutic Activities, Therapeutic Exercises Modalities Cold Pack/Ice Massage,Electric Stimulation,Hot Packs, Ultrasound Next Visit Focus/Plan Next Note Type Treatment Note Next Visit Plan review HEP, pullys, UBE, AAROM into all planes, try rows if painfree, STM to L shoulder & gentle GH mobs Plan of Care Dates Plan of Care Start Date 05/11/19 Plan of Care End Date 07/11/19 Electronically Signed by: Yesenia Wu, PT 05/11/19 5513 Please Sign and Return: I have reviewed this Plan of Care and certify that the skilled therapy services above are required to meet the patient?s needs. Physician Signature Date Printed Name and Credentials Clinical Instructor Signature Printed Name and Credentials
--- NOTE | 2019-05-16 14:41 | PT.OTN ---
Current Diagnoses Pain in left shoulder (05/16/19) Pain in unspecified shoulder (05/16/19) Abnormal posture (05/16/19) Weakness (05/16/19) Physical Therapy Treatment Note PT-OP-A Visit Information Start: 05/11/19 11:20 Freq: Status: Active Protocol: Document 05/16/19 14:34 [facility] (Rec: 05/16/19 14:41 [facility] [id number]) Out-Patient Physical Therapy Visit Information Visit Information Visit Type Treatment Note Visit Start Time 13:00 Visit Stop Time 13:16 Total Visit Minutes 16 Visit Number 2 Number of MERCHANDISE DISPLAYER Visits 0 PT-OP-B Current Condition Start: 05/11/19 11:20 Freq: Status: Active Protocol: Document 05/11/19 13:42 [facility] (Rec: 05/11/19 14:27 [facility] [id number]) Current Condition History of Current Condition Onset Date 10 days ago Current Complaints L shoulder pain History of Current Condition Pt presents w/C/o L shoulder pain that started about 10 days ago when he was lifting overhead with a big crate and it started to fall and he tried to catch it and heard a pop and had pain> Pt reports he cont workng but his hsoulder has been bothering him since this. He is having pain with reaching movements and has a lot fo organization that he needs to cont to do. 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 Notes that he has some pain into ant forearm sometimes. Prior Treatments and Tests Xray on L shoulder showed L shoulder AC arthritis Treatment Goals Patient/Caregiver Goals to have no further problems, reapair the shoulder best as possible and be able to do all movements normally Personal Factors Other Personal Factors That May Effect hx of R RCR & biceps Therapy/Recovery reattachment, neck pain w/hx of 3 level lami, B thumb sx, R ulnar n sx, B TKA, back pain, prostate CA (now CA free), L shoulder cyst that required wound care (now closed) PT-OP-C Subjective Start: 05/11/19 11:20 Freq: Status: Active Protocol: Document 05/16/19 14:34 [facility] (Rec: 05/16/19 14:41 [facility] [id number]) OP-PT Subjective Patient Comments Patient Comments Pt reports fall yesterday that he went to the ER d/t dog pulling him down on a walk. Reports he hit his head and Lshoulder. CT done to L ribcage, neck & head with no faractures visable. Notes still having dizziness and nausea a little. He is supposed to follow up with primary Patient Reported Progress Worse PT-OP-F Manual Assessment Start: 05/11/19 11:20 Freq: Status: Active Protocol: Document 05/11/19 13:42 [facility] (Rec: 05/11/19 14:27 [facility] [id number]) Manual Assessments Soft Tissue Assessment Soft Tissue Mobility Assessment tendernessin L UT, supraspinatus, infraspinatus & biceps ; tightness B pecs PT-OP-J Posture/Palpation/Skin Start: 05/11/19 11:20 Freq: Status: Active Protocol: Document 05/11/19 13:42 [facility] (Rec: 05/11/19 14:27 [facility] [id number]) Posture Evaluation Comments Posture Comments fwd head & shoulders with inc kyphosis PT-OP-K Range of Motion Start: 05/11/19 11:20 Freq: Status: Active Protocol: Document 05/11/19 13:42 [facility] (Rec: 05/11/19 14:27 [facility] [id number]) Shoulder Goniometric Range of Motion Shoulder Right Active Flexion 150 Abduction 145 External Rotation at 0 degrees Abduction 72 Internal Rotation Behind Back (text) L1 Left Passive Flexion 160 Abduction 82 Left Active Testing Position Standing Flexion 85 Abduction 65 External Rotation at 0 degrees Abduction 72 Internal Rotation Behind Back (text) T10 PT-OP-L Special Tests Start: 05/11/19 11:20 Freq: Status: Active Protocol: Document 05/11/19 13:42 [facility] (Rec: 05/11/19 14:27 [facility] [id number]) Special Tests Shoulder Special Tests Drop Arm Rotator Cuff Test Results negative Grind Labrum Test Results negative Neer Impingement Test Results positive L Antonio Alessio Impingement Test Results positive L Lift-Off Rotator Cuff Test Results positive L Empty Can Test Results positive L PT-OP-M Strength Start: 05/11/19 11:20 Freq: Status: Active Protocol: Document 05/11/19 13:42 [facility] (Rec: 05/11/19 14:27 [facility] [id number]) Shoulder Strength Shoulder Manual Muscle Testing Right Flexion 4+ Good+ Extension 4- Good- External Rotation 3+ Fair+ Internal Rotation 4 Good Left Flexion 2+ Poor+ Abduction (C5) 2+ Poor+ External Rotation 4- Good- Internal Rotation 4 Good Elbow/Forearm Strength Elbow and Forearm Manual Muscle Testing Right Flexion (C6) 4 Good Extension (C7) 4 Good Pronation 4+ Good+ Supination 4 Good Comments Popping in R wrist w/motions Left Flexion (C6) 4 Good Extension (C7) 4 Good Pronation 4 Good Supination 4 Good Wrist Strength Wrist Manual Muscle Testing Left Flexion (C7) 4- Good- Extension (C6) 4 Good PT-OP-Q Treatments Start: 05/11/19 11:20 Freq: Status: Active Protocol: Document 05/16/19 14:34 [facility] (Rec: 05/16/19 14:41 [facility] [id number]) Self-Care/Home Management Treatment Education Other Education edu to use ice or heat as needed to dec pain, edu to rest for head and shoulder at this time to allow recovery, edu on importance fo rest after head injury, edu re: following up with MD. PT-OP-R Modalities Start: 05/11/19 11:20 Freq: Status: Active Protocol: Document 05/11/19 13:42 [facility] (Rec: 05/11/19 14:28 [facility] [id number]) Hot Pack/Cold Pack Treatment Cold Pack Location L shoulder Patient Position Sidelying Treatment Duration (minutes) 10 Patient Tolerance Good PT-OP-T Assessment and Plan Start: 05/11/19 11:20 Freq: Status: Active Protocol: Document 05/16/19 14:34 [facility] (Rec: 05/16/19 14:41 [facility] [id number]) Physical Therapy Assessment Goals activities Short Term Goal (STG) Pt willb e able to turn of lamp without inc pain. STG Duration 06/11/19 Cyber Operator Goal (LTG) Pt will be able to do overhead & reaching activities without inc in pain. LTG Duration 07/11/19 Strength Short Term Goal (STG) Pt will be indep with HEP. STG Duration 06/11/19 Cyber Operator Goal (LTG) Pt will have 4+/5 LUE strength in order to allow him to have greater ease with his typical home activities. LTG Duration 07/11/19 ROM Short Term Goal (STG) Pt will imrpove L shoulder flex and abd to 100 degrees. STG Duration 06/11/19 Cyber Operator Goal (LTG) Pt will have full L shoulder ROM as compared to R in order to allow him to complete home tasks without issue. LTG Duration 07/11/19 Assessment Summary Assessment Pt was sent home early today d /t still have nausea & dizziness feeling after concussion. Pt also off blaance. instructed to rest and not to drive and discuss with his physican before return to PT. Pt would bneefit from shoulder TP but do not want to do much mobility prior to healing from concussion yesterday. CT showed no fractures or changes after fall. Physical Therapy Plan Frequency and Duration Frequency of Treatment 2x/Week Duration of Treatment 2 months Plan of Care Start Date 05/11/19 Plan of Care End Date 07/11/19 Next Visit Focus/Plan Next Note Type Treatment Note Next Visit Plan pt to follow up with MD to get cleared to return to PT, review HEP, pullys, UBE, AAROM into all planes, try rows if painfree, STM to L shoulder & gentle GH mobs
--- NOTE | 2019-05-18 13:27 | PT-OP ANOTE ---
Pt called re: no show. He was informed of 2 week hold for coronavirus concerns.
--- NOTE | 2019-09-27 13:40 | PT.OPDS ---
Current Diagnoses Pain in left shoulder (05/16/19) Pain in unspecified shoulder (05/16/19) Abnormal posture (05/16/19) Weakness (05/16/19) Visit Care Team Role Provider Type Duke Felix MD Attending Provider Physician Primary Care Provider Referring Provider Specialty: Internal Medicine Address: [address] [place] [address], [id number] Email: [email or web address] Visit Number Visit Number 2 Discharge Summary PT-OP-T Assessment and Plan Start: 05/11/19 11:20 Freq: Status: Active Protocol: Document 09/27/19 13:39 [facility] (Rec: 09/27/19 13:40 [facility] [id number]) Physical Therapy Assessment Assessment Summary Assessment pt came for eval but did not recieve treatment d/t fall then COVID closure. Pt called re: restarting upon opening of clinic mult times with message lefts but did not call back to schedule. DC at this time. Physical Therapy Plan Discharge Physical Therapy Discharge Reasons No Longer Attending PT
== END 2019-09-28 10:49 ==
LOC: PHYS 13:00
PROVIDERS: PCP Internal Medicine; Referring Provider Internal Medicine; Visit Provider Internal Medicine
DX: M25.519 Pain in unspecified shoulder (principal); R53.1 Weakness; R29.3 Abnormal posture; M25.512 Pain in left shoulder
CPT/HCPCS: 97010; 97110; 97162; 97535

== ENCOUNTER → 2019-07-19 14:01 | Outpatient (CLI) | payer MEDICARE, OTHER, SELFPAY ==
--- NOTE | 2019-07-19 | DI.RAD.S_ITS ---
PROCEDURE: XR KNEE RT 3V INDICATIONS: RIGHT KNEE PAIN TECHNIQUE: 3 views of the knee were acquired. COMPARISON: [facility], , KNEE 1-2 VIEWS LEFT, 02/05/2015, 15:28. FINDINGS: Bones: No fractures or dislocations. No suspicious bony lesions. Expected postoperative alignment of right knee arthroplasty. Hardware intact. Soft tissues: Small joint effusion. No suspicious soft tissue calcifications. IMPRESSION: Expected postoperative alignment. Dictated by: Js Conway M.D. on 07/19/2019 at 16:09 Approved by: Js Conway M.D. on 07/19/2019 at 16:11
[2019-07-19 15:06] LABS: Add Manual Diff / Slide Review NO; Basophils Absolute Auto 0 /uL (0-100); Eosinophils Absolute Auto 200 /uL (0-450); Eosinophils Percent Auto 3.9 % (2-4); Hemoglobin 13.2 g/dL (13.5-17.5); Lymphocytes Absolute Auto 900 /uL (1100-4500); Mean Corpuscular HGB Conc 33.9 % (30-36); Mean Corpuscular Hemoglobin 29.4 PG (26-34); Mean Corpuscular Volume 86.9 fL (80-100); Monocytes Absolute Auto 600 /uL (0-900); Monocytes Percent Auto 12.3 % (3-14); Neutrophils Absolute Auto 2900 /uL (1500-7000); Neutrophils Percent Auto 63.8 % (50-75); Platelet Count 132 X10^3/uL (150-400); Red Blood Cell Count 4.49 X10^6/uL (4.5-5.9); White Blood Cell Count 4.6 X10^3/uL (4.5-11.0)
[2019-07-19 15:29] LABS: Aspartate Aminotransferase 25 IU/L (17-59); BUN Creatinine Ratio 18.8 (6-22); Blood Urea Nitrogen 29 mg/dL (9-20); Calcium 9.3 mg/dL (8.4-10.2); Carbon Dioxide 25 mmol/L (22-32); Chloride 106 mmol/L (98-107); Cholesterol 124 mg/dL (140-199); Estimated Glomerular Filt Rate 43.5 mL/min (>60); Glucose 105 mg/dL (80-110); HDL Cholesterol 35 mg/dL (40-60); HEMOLYSIS < 15 (0-50); LDL Cholesterol Calculated 44 mg/dL (<100); Potassium 4.4 mmol/L (3.4-5.1); Sodium 138 mmol/L (137-145); Triglycerides 225 mg/dL (35-150); Uric Acid 7.1 mg/dL (3.5-8.5)
[2019-07-19 16:19] LABS: TSH w/ Reflex to FT4 2.07 uIU/mL (0.47-4.68)
== END ==
PROVIDERS: PCP Internal Medicine; Referring Provider Internal Medicine; Visit Provider Internal Medicine
DX: M25.561 Pain in right knee (principal); M25.461 Effusion, right knee; M10.9 Gout, unspecified; R60.9 Edema, unspecified; E78.2 Mixed hyperlipidemia; N18.9 Chronic kidney disease, unspecified; I12.9 Hypertensive chronic kidney disease with stage 1 through stage 4 chronic kidney disease, or unspecified chronic kidney disease; R29.6 Repeated falls
CPT/HCPCS: 36415; 73562; 80048; 80061; 84443; 84450; 84550; 85025

== ENCOUNTER → 2019-07-22 10:00 | Outpatient (CLI) | payer MEDICARE, OTHER, SELFPAY ==
--- NOTE | 2019-07-22 | DI.RAD.S_ITS ---
PROCEDURE: XR KNEE LT 3V INDICATIONS: Pain in left knee, recurrent falls. TECHNIQUE: 3 views of the knee were acquired. COMPARISON: [facility], CR, XR KNEE RT 3V, 07/19/2019, 14:14. FINDINGS: Bones: No fractures or dislocations. No suspicious bony lesions. Expected postoperative alignment of left total knee arthroplasty. Soft tissues: No joint effusion. No suspicious soft tissue calcifications. IMPRESSION: Expected postoperative alignment. No fracture Dictated by: Js Conway M.D. on 07/22/2019 at 12:55 Approved by: Js Conway M.D. on 07/22/2019 at 12:57
== END ==
PROVIDERS: PCP Internal Medicine; Referring Provider Internal Medicine; Visit Provider Internal Medicine
DX: M25.562 Pain in left knee (principal); R29.6 Repeated falls; Z96.652 Presence of left artificial knee joint
CPT/HCPCS: 73562

== ENCOUNTER 2019-09-27 11:03 | Emergency (ER) | payer MEDICARE, OTHER, SELFPAY ==
[2019-09-27 11:05] VITALS: BP 190/94; PULSE 61; RESP 16; TEMP 36.9; O2SAT 98
--- NOTE | 2019-09-27 11:09 | DI.CT.S_ITS ---
PROCEDURE: CT HEAD/BRAIN WO CON INDICATIONS: modified fall forward TECHNIQUE: Noncontrast 4.5 mm thick angled axial sections acquired from the foramen magnum to the vertex, with coronal and sagittal reformats. For radiation dose reduction, the following was used: automated exposure control, adjustment of mA and/or kV according to patient size. COMPARISON: [facility], CT, CT HEAD/BRAIN WO CON, 05/15/2019, 17:11. FINDINGS: Image quality: Excellent. CSF spaces: Basal cisterns are patent. No extra-axial fluid collections. The ventricles are symmetric in size and shape. Brain: No intracranial bleeds or masses. There is cerebral volume loss for age, with resultant ventricular and sulcal prominence. There are periventricular and deep white matter chronic small vessel ischemic changes. There is intracranial internal carotid artery atherosclerosis. Bilateral nasal bone fractures. Mild right maxillary sinus disease. There is also partial opacification of the right ethmoid air cells and right frontal sinus. IMPRESSION: No acute intracranial process. Bilateral nasal bone fractures Dictated by: Js Conway M.D. on 09/27/2019 at 11:37 Approved by: Js Conway M.D. on 09/27/2019 at 11:44
--- NOTE | 2019-09-27 11:09 | DI.CT.S_ITS ---
PROCEDURE: CT CERVICAL SPINE WO CON INDICATIONS: modified fall forward TECHNIQUE: Noncontrast 3 mm thick sections acquired from the skull base to the T4 level. Sagittal and coronal reformats were then constructed. For radiation dose reduction, the following was used: automated exposure control, adjustment of mA and/or kV according to patient size. COMPARISON: [facility], CT, CT CERVICAL SPINE WO CON, 05/15/2019, 17:11. FINDINGS: Image quality: Excellent. Bones: No fractures or dislocations. Visualized superior ribs are intact. Severe cervical spondylosis and facet arthropathy. Postsurgical changes related to prior posterior decompression at the level of C5-C6. Diffuse osteopenia. Straightening of the normal cervical lordosis and grade 1 anterolisthesis of C4 on C5. Soft tissues: Prevertebral soft tissues are normal in thickness. No paravertebral hematomas. No apical pneumothoraces. Carotid atherosclerotic plaques incidentally noted. IMPRESSION: No acute fracture identified. Severe spondylitic changes and facet arthropathy, and postsurgical sequela as above Dictated by: Js Conway M.D. on 09/27/2019 at 11:44 Approved by: Js Conway M.D. on 09/27/2019 at 11:47
--- NOTE | 2019-09-27 11:09 | DI.RAD.S_ITS ---
PROCEDURE: XR CHEST 2V INDICATIONS: fall forward TECHNIQUE: 2 views of the chest were acquired. COMPARISON: [facility], CR, XR CHEST 2V, 02/03/2018, 15:13. FINDINGS: Surgical changes and devices: None. Lungs and pleura: Lungs are clear. No pleural effusions or pneumothorax. Mediastinum: Mediastinal contours are normal. Heart size is normal. Bones and chest wall: No suspicious bony abnormalities. Soft tissues appear unremarkable. IMPRESSION: No acute cardiopulmonary disease process. Dictated by: Dorys Bowen MD, PhD on 09/27/2019 at 11:30 Approved by: Dorys Bowen MD, PhD on 09/27/2019 at 11:31
--- NOTE | 2019-09-27 11:13 | ED_ITS ---
HPI - Head Injury General Chief complaint: Head Injury Stated complaint: Modified trauma Time Seen by Provider: 09/27/19 11:09 Source: patient, family and EMS Mode of arrival: EMS Limitations: no limitations History of Present Illness HPI Narrative: Patient is an 83-year-old male on aspirin presenting as a modified trauma after ground level fall. He was at a storage unit when the dog tripped some he fell forward family witnessed at there is no loss of consciousness. Daughter states he fell straight forward onto his face was unable to get his hand out to catch him. He has obvious abrasions to the face but denies any other injury. MD Complaint: head injury and fall Onset (ago): minute(s) Arrival Conditions: other (C-collar placed in ED) Mechanism of Injury: fall Place: home Location of injury: frontal Related Data Home Medications Medication Instructions Recorded Confirmed amlodipine 5 mg PO DAILY 11/20/17 09/27/19 aspirin 81 mg PO DAILY 11/20/17 09/27/19 lisinopril-hydrochlorothiazide 1 tab PO DAILY 11/20/17 09/27/19 allopurinol 300 mg PO DAILY 02/12/18 09/27/19 chlorthalidone 25 mg PO DAILY 02/12/18 09/27/19 cyanocobalamin (vitamin B-12) 1,000 mcg PO DAILY 09/21/18 09/27/19 1,000 mcg capsule guaifenesin 100 mg/5 mL oral liquid 200 mg PO Q6H PRN 09/21/18 09/27/19 lorazepam 0.5 mg tablet 0.5 mg PO BEDTIME PRN 09/21/18 09/27/19 metoprolol tartrate 25 mg tablet 12.5 mg PO BID 09/21/18 09/27/19 rosuvastatin 10 mg tablet 10 mg PO DAILY 09/21/18 09/27/19 sertraline 50 mg tablet 50 mg PO DAILY 09/21/18 09/27/19 Previous Rx's Medication Instructions Recorded hydrocodone-acetaminophen 1 tab PO Q4-6H PRN #14 tab 11/20/17 cyclobenzaprine 5 mg PO TID PRN #15 tab 05/15/19 naproxen [Naprosyn] 500 mg PO BID PRN #20 tab 05/15/19 Allergies Allergy/AdvReac Type Severity Reaction Status Date / Time No Known Drug Allergies Allergy Verified 09/27/19 11:35 Review of Systems Review of Systems ROS Unobtainable: All systems reviewed & are unremarkable except as noted in HPI and below Constitutional Constitutional: Denies chills, Denies fever(s), Reports headache(s), Denies lethargy and Denies weakness Eyes Eyes: Denies blurry vision, Denies exophthalmos and Denies change in vision ENT Ears, Nose, Mouth, and Throat: Reports headache(s) Cardiovascular Cardiovascular: Denies chest pain, Denies irregular heart rhythm, Denies lightheadedness, Denies palpitations, Denies dyspnea, Denies dyspnea on exertion and Denies orthopnea Respiratory Respiratory: Denies cough, Denies dyspnea, Denies dyspnea on exertion and Denies wheezing Gastrointestinal Gastrointestinal: Denies abdominal pain, Denies change in bowel habits, Denies diarrhea, Denies nausea and Denies vomiting Musculoskeletal Musculoskeletal: Reports as per HPI Neurologic Neurologic: Reports as per HPI, Reports headache(s), Denies lack of coordination, Denies localized weakness, Denies memory loss and Denies weakness Psychiatric Psychiatric: Denies memory loss Endocrine Endocrine: Denies palpitations Allergic/Immunologic Allergic/Immunologic: Denies wheezing Patient History Medical History Allergic rhinitis (Chronic) Arachnoid cyst (Chronic) B12 deficiency (Chronic) Cellulitis (Resolved) Chronic kidney disease (Chronic) Degenerative cervical disc (Chronic) DVT (deep venous thrombosis) (Resolved) Gouty arthropathy (Chronic) Hearing loss (Acute) Hypertension (Acute) Osteoarthritis (Chronic) Peptic ulcer disease (Chronic) Prostate cancer (Chronic) Vertigo (Chronic) Surgical History History of knee replacement (Resolved) Hx of appendectomy (Resolved) Hx of laminectomy (Resolved) Hx of radical prostatectomy (Resolved) Hx of rotator cuff surgery (Resolved) Hx of thumb surgery (Resolved) No pertinent past surgical history (Acute) Social History Smoking Status: Former smoker Smoking Status: Former smoker alcohol intake frequency: holidays/special occasions only Substance Use Type: does not use Exam Initial Vital Signs Initial Vital Signs: Vital Signs Temperature 98.5 F 07/28/20 11:05 Pulse Rate 61 09/27/19 11:05 Respiratory Rate 16 09/27/19 11:05 Blood Pressure 190/94 H 09/27/19 11:05 Pulse Oximetry 98 09/27/19 11:05 GENERAL: Elderly male extremely hard of hearing but alert HEENT: Head facial abrasions on forehead and nose,, EOMI, pupils reactive, face symmetric, moist mucous membranes, no hemotympanum, no septal hematoma, blood noted in both nares NECK: No vertebral tenderness no [id number]-R-collar placed in the ED CARDIOVASCULAR: Regular rate and rhythm without murmurs, rubs or gallops. RESPIRATORY: Breath sounds equal bilaterally, no wheezes rales or rhonchi. No crepitations, no subcutaneous air, chest is nontender, no signs of trauma ABDOMEN: Soft, nontender. Normoactive bowel sounds all 4 quadrants. No guarding or rebound. BACK: Nontender vertebrae, no step-offs, no contusions PELVIS: stable. EXTREMITIES: Normal range of motion, no clubbing or edema. Right upper extremity: Within normal limits Left upper extremity: Within normal limits Right lower extremity: Within normal limits Left lower extremity:Within normal limits NEUROLOGICAL: Cranial nerves II through XII grossly intact. Normal gait and speech. SKIN: Multiple skin abrasions noted on the face but no lacerations Course Orders Ordered: ED Orders 09/27/19 11:09 CT cervical spine wo con Stat CT head/brain wo con Stat XR chest 2V Stat 09/27/19 11:11 Complete Blood Count AUTO DIFF Stat Comprehensive Metabolic Panel Stat 09/27/19 11:53 CT facial bones wo con Stat Discontinued Medications Ketorolac Tromethamine (Toradol) 15 mg IV NOW ONE Stop: 09/27/19 12:07 Last Admin: 09/27/19 12:14 Dose: 15 mg Documented by: MARIPOSA Oxymetazoline HCl (Afrin) 2 sprays NASAL NOW ONE Stop: 09/27/19 12:15 Last Admin: 09/27/19 12:18 Dose: 2 sprays Documented by: MARIPOSA Vital Signs Vital signs: Vital Signs - 8 hr 09/27/19 11:05 09/27/19 11:24 09/27/19 12:00 Temperature 98.5 F Pulse Rate 61 62 59 L Respiratory Rate 16 20 21 Blood Pressure 190/94 H Pulse Oximetry 98 97 97 09/27/19 12:24 Temperature Pulse Rate 57 L Respiratory Rate 24 Blood Pressure 169/89 H Pulse Oximetry 95 MDM - Head Injury Lab Data Attestation: I reviewed the patient's lab results. Result diagrams: 09/27/19 11:11 09/27/19 11:11 Labs: Lab Results 09/27/19 09/27/19 Range/Units 11:11 11:11 WBC 4.8 (4.5-11.0) X10^3/uL RBC 4.56 (4.5-5.9) X10^6/uL Hgb 13.0 L (13.5-17.5) g/dL Hct 39.3 L (41-53) % MCV 86.3 (80-100) fL MCH 28.4 (26-34) PG MCHC 33.0 (30-36) % RDW 14.3 (11.6-14.8) % Plt Count 115 L (150-400) X10^3/uL Neut % (Auto) 67.0 (50-75) % Lymph % (Auto) 18.1 L (25-40) % Gilchrist % (Auto) 11.3 (3-14) % Eos % (Auto) 2.8 (2-4) % Baso % (Auto) 0.8 (0-2) % Neut # (Auto) 3200 (1694-5321) /uL Lymph # (Auto) 900 L (2766-0135) /uL Gilchrist # (Auto) 500 (0-900) /uL Eos # (Auto) 100 (0-450) /uL Baso # (Auto) 0 (0-100) /uL Sodium 140 (137-145) mmol/L Potassium 4.4 (3.4-5.1) mmol/L Chloride 110 H (98-107) mmol/L Carbon Dioxide 23 (22-32) mmol/L BUN 33 H (9-20) mg/dL Creatinine 1.40 H (0.66-1.25) mg/dL Estimated GFR 48.5 L (>60) mL/min BUN/Creatinine Ratio 23.6 H (6-22) Glucose 141 H (80-110) mg/dL Calcium 9.8 (8.4-10.2) mg/dL Total Bilirubin 0.6 (0.2-1.3) mg/dL AST 23 (17-59) IU/L ALT 23 (<50) IU/L Alkaline Phosphatase 70 (38-126) U/L Total Protein 6.5 (6.3-8.2) g/dL Albumin 4.0 (3.5-5.0) g/dL Globulin 2.5 (1.7-4.1) g/dL Albumin/Globulin Ratio 1.6 (1.0-2.8) Imaging Data CT scan - head: Radiologist's Impression: PROCEDURE: CT HEAD/BRAIN WO CON INDICATIONS: modified fall forward TECHNIQUE: Noncontrast 4.5 mm thick angled axial sections acquired from the foramen magnum to the vertex, with coronal and sagittal reformats. For radiation dose reduction, the following was used: automated exposure control, adjustment of mA and/or kV according to patient size. COMPARISON: [facility] CT, CT HEAD/BRAIN WO CON, 05/15/2019, 17:11. FINDINGS: Image quality: Excellent. CSF spaces: Basal cisterns are patent. No extra-axial fluid collections. The ventricles are symmetric in size and shape. Brain: No intracranial bleeds or masses. There is cerebral volume loss for age, with resultant ventricular and sulcal prominence. There are periventricular and deep white matter chronic small vessel ischemic changes. There is intracranial internal carotid artery atherosclerosis. Bilateral nasal bone fractures. Mild right maxillary sinus disease. There is also partial opacification of the right ethmoid air cells and right frontal sinus. IMPRESSION: No acute intracranial process. Bilateral nasal bone fractures Dictated by: Js Conway M.D. on 09/27/2019 at 11:37 CT - cervical spine: Radiologist's Impression: PROCEDURE: CT CERVICAL SPINE WO CON INDICATIONS: modified fall forward TECHNIQUE: Noncontrast 3 mm thick sections acquired from the skull base to the T4 level. Sagittal and coronal reformats were then constructed. For radiation dose reduction, the following was used: automated exposure control, adjustment of mA and/or kV according to patient size. COMPARISON: [facility], CT, CT CERVICAL SPINE WO CON, 05/15/2019, 17:11. FINDINGS: Image quality: Excellent. Bones: No fractures or dislocations. Visualized superior ribs are intact. Severe cervical spondylosis and facet arthropathy. Postsurgical changes related to prior posterior decompression at the level of C5-C6. Diffuse osteopenia. Straightening of the normal cervical lordosis and grade 1 anterolisthesis of C4 on C5. Soft tissues: Prevertebral soft tissues are normal in thickness. No paravertebral hematomas. No apical pneumothoraces. Carotid atherosclerotic plaques incident ally noted. IMPRESSION: No acute fracture identified. Severe spondylitic changes and facet arthropathy, and postsurgical sequela as above Dictated by: Js Conway M.D. on 09/27/2019 at 11:44 Chest x-ray: Radiologist's Impression: PROCEDURE: XR CHEST 2V INDICATIONS: fall forward TECHNIQUE: 2 views of the chest were acquired. COMPARISON: [facility], CR, XR CHEST 2V, 02/03/2018, 15:13. FINDINGS: Surgical changes and devices: None. Lungs and pleura: Lungs are clear. No pleural effusions or pneumothorax. Mediastinum: Mediastinal contours are normal. Heart size is normal. Bones and chest wall: No suspicious bony abnormalities. Soft tissues appear unremarkable. IMPRESSION: No acute cardiopulmonary disease process. Dictated by: Droys Bowen MD, PhD on 09/27/2019 at 11:30 Approved by: Dorys Bowen MD, PhD on 09/27/2019 at 11:31 CT Facial: Radiologist's Impression: PROCEDURE: CT FACIAL BONES WO CON INDICATIONS: modified trauma fall forward TECHNIQUE: Noncontrast 2.5 mm thick axial images acquired from the mandible through the frontal sinuses, with coronal and sagittal reformatting. For radiation dose reduction, the following was used: automated exposure control, adjustment of mA and/or kV according to patient size. COMPARISON: [facility], CT, CT CERVICAL SPINE WO CON, 09/27/2019, 11:07. FINDINGS: Image quality: Excellent. Bilateral nasal bone fractures are seen. Right frontal, ethmoid and maxillary sinus disease. There is anterior left frontal/periorbital scalp swelling. Vascular: Visualized vascular structures appear normal in the absence of contrast. Bony vascular foramina and canals are intact. IMPRESSION: Bilateral nasal bone fractures. Right frontal ethmoid and maxillary sinus disease Dictated by: Js Conway M.D. on 09/27/2019 at 11:47 Approved by: Js Conway M.D. on 09/27/2019 at 11:51 [facility] Narrative Medical decision making narrative: The patient had a mechanical fall only injury seems to be bilateral nasal fractures. C-collar is removed after CT scan has returned he does have some mild pain with neck flexion more on the right than the left. Patient is ambulatory without difficulty. He does have some continuous postnasal bleeding but it is controlled he is given Afrin which does seem to help. Recommend he follow up with ENT. Discharge Plan Departure Patient Disposition: Home Clinical Impression: Fracture closed, nasal bone Qualifiers: Encounter type: initial encounter Qualified Code(s): S02.2XXA - Fracture of nasal bones, initial encounter for closed fracture Closed head injury Qualifiers: Encounter type: initial encounter Qualified Code(s): S09.90XA - Unspecified injury of head, initial encounter Discharge Date/Time: 09/27/19 12:41 Instructions: DI for Nose Fracture, DI for Closed Head Injury Activity Restrictions/Additional Instructions: *You have been diagnosed with nasal bone fracture closed head injury *What to do: Do not blow nose dap only. *Continue to take medications as directed Tylenol 650 mg every 4-6 hours if needed for pain *Follow up with your primary care provider in 2-3 days Call ENT today to schedule follow-up appointment in about 1 week *Return to ER if you should have persistent vomiting change in behavior weakness [or] any new, worsening or concerning symptoms Prescriptions: No Action cyanocobalamin (vitamin B-12) 1,000 mcg capsule 1,000 mcg PO DAILY RF: 0 guaifenesin 100 mg/5 mL liquid 200 mg PO Q6H PRN (Reason: Pain (Scale Score 1-3)) RF: 0 lorazepam 0.5 mg tablet 0.5 mg PO BEDTIME PRN (Reason: Anxiety) RF: 0 metoprolol tartrate 25 mg tablet 12.5 mg PO BID RF: 0 rosuvastatin 10 mg tablet 10 mg PO DAILY RF: 0 sertraline 50 mg tablet 50 mg PO DAILY RF: 0 lisinopril-hydrochlorothiazide 20-12.5 mg tablet 1 tab PO DAILY RF: 0 amlodipine 5 mg tablet 5 mg PO DAILY RF: 0 aspirin 81 mg Tablet,Delayed Release (Dr/Ec) 81 mg PO DAILY RF: 0 hydrocodone-acetaminophen 5-325 mg tablet 1 tab PO Q4-6H PRN (Reason: pain) Qty: 14 RF: 0 chlorthalidone 25 mg tablet 25 mg PO DAILY RF: 0 allopurinol 300 mg tablet 300 mg PO DAILY RF: 0 naproxen [Naprosyn] 500 mg tablet 500 mg PO BID PRN (Reason: pain) Qty: 20 RF: 0 cyclobenzaprine 5 mg tablet 5 mg PO TID PRN (Reason: muscle spasm) Qty: 15 RF: 0 Referrals: Tyler Wu MD [Physician] - Duke Felix MD [Primary Care Provider] -
[2019-09-27 11:19] LABS: Add Manual Diff / Slide Review NO; Basophils Absolute Auto 0 /uL (0-100); Basophils Percent Auto 0.8 % (0-2); Eosinophils Absolute Auto 100 /uL (0-450); Eosinophils Percent Auto 2.8 % (2-4); Hematocrit 39.3 % (41-53); Lymphocytes Absolute Auto 900 /uL (1100-4500); Lymphocytes Percent Auto 18.1 % (25-40); Mean Corpuscular Hemoglobin 28.4 PG (26-34); Mean Corpuscular Volume 86.3 fL (80-100); Monocytes Absolute Auto 500 /uL (0-900); Monocytes Percent Auto 11.3 % (3-14); Neutrophils Absolute Auto 3200 /uL (1500-7000); Platelet Count 115 X10^3/uL (150-400); Red Blood Cell Count 4.56 X10^6/uL (4.5-5.9); Red Cell Distribution Width 14.3 % (11.6-14.8); White Blood Cell Count 4.8 X10^3/uL (4.5-11.0)
[2019-09-27 11:24] VITALS: PULSE 62; RESP 20; O2SAT 97
[2019-09-27 11:31] LABS: Alanine Aminotransferase 23 IU/L (<50); Albumin Globulin Ratio 1.6 (1.0-2.8); Alkaline Phosphatase 70 U/L (38-126); Aspartate Aminotransferase 23 IU/L (17-59); BUN Creatinine Ratio 23.6 (6-22); Bilirubin Total 0.6 mg/dL (0.2-1.3); Blood Urea Nitrogen 33 mg/dL (9-20); Calcium 9.8 mg/dL (8.4-10.2); Carbon Dioxide 23 mmol/L (22-32); Chloride 110 mmol/L (98-107); Estimated Glomerular Filt Rate 48.5 mL/min (>60); Globulin 2.5 g/dL (1.7-4.1); Glucose 141 mg/dL (80-110); HEMOLYSIS < 15 (0-50); Potassium 4.4 mmol/L (3.4-5.1); Sodium 140 mmol/L (137-145); Total Protein 6.5 g/dL (6.3-8.2)
--- NOTE | 2019-09-27 11:53 | DI.CT.S_ITS ---
PROCEDURE: CT FACIAL BONES WO CON INDICATIONS: modified trauma fall forward TECHNIQUE: Noncontrast 2.5 mm thick axial images acquired from the mandible through the frontal sinuses, with coronal and sagittal reformatting. For radiation dose reduction, the following was used: automated exposure control, adjustment of mA and/or kV according to patient size. COMPARISON: [facility], CT, CT CERVICAL SPINE WO CON, 09/27/2019, 11:07. FINDINGS: Image quality: Excellent. Bilateral nasal bone fractures are seen. Right frontal, ethmoid and maxillary sinus disease. There is anterior left frontal/periorbital scalp swelling. Vascular: Visualized vascular structures appear normal in the absence of contrast. Bony vascular foramina and canals are intact. IMPRESSION: Bilateral nasal bone fractures. Right frontal ethmoid and maxillary sinus disease Dictated by: Js Conway M.D. on 09/27/2019 at 11:47 Approved by: Js Conway M.D. on 09/27/2019 at 11:51
[2019-09-27 12:00] VITALS: PULSE 59; RESP 21; O2SAT 97
[2019-09-27] MEDS: KETOROLAC 60 MG/2 ML VIAL 15 MG IV (12:14)
[2019-09-27] MEDS: OXYMETAZOLINE NASAL SPRAY 30 ML 2 SPRAYS NASAL (12:18)
[2019-09-27 12:24] VITALS: BP 169/89; PULSE 57; RESP 24; O2SAT 95
--- NOTE | 2019-09-27 12:39 | PC.NURSE ---
Patient states bleeding in back of throat from nose has slowed down after afrin.
--- NOTE | 2019-09-27 12:40 | PC.NURSE ---
I called [facility] and gave report to them. They are taking him home via their vehicle.
--- NOTE | 2019-09-27 12:41 | PC.NURSE ---
I spoke with daughter about patient and she was at the bedside.
== END 2019-09-27 12:41 | disposition home or self-care (01) ==
PROVIDERS: Emergency Provider Emergency Medicine; PCP Internal Medicine
DX: S02.2XXA Fracture of nasal bones, initial encounter for closed fracture (principal); S09.90XA Unspecified injury of head, initial encounter; W19.XXXA Unspecified fall, initial encounter; Z79.82 Long term (current) use of aspirin; R51 Headache
CPT/HCPCS: 36415; 70450; 70486; 71046; 72125; 80053; 85025; 96374; 99285; J1885

== ENCOUNTER → 2019-10-03 11:05 | Outpatient (CLI) | payer MEDICARE, OTHER, SELFPAY ==
--- NOTE | 2019-10-03 11:09 | DI.RAD.S_ITS ---
PROCEDURE: XR RIBS RT MIN 3V W CXR 1V INDICATIONS: RIGHT SHOULDER AND RIGHT RIB PAIN POST FALL TECHNIQUE: 2 views of the right ribs were acquired, along with a single view chest. COMPARISON: [facility], CR, XR CHEST 2V, 09/27/2019, 11:05. FINDINGS: Surgical changes and devices: None. Bones and chest wall: No fractures or dislocations. No suspicious bony lesions. Overlying soft tissues appear unremarkable. Lungs and pleura: No pleural effusions or pneumothorax. Scattered subsegmental atelectasis and/or scarring. No focal consolidation. Mediastinum: Mediastinal contours appear normal. Heart size is normal. IMPRESSION: Scattered subsegmental atelectasis and/or scarring. No focal consolidation. No rib fracture identified. Dictated by: Js Conway M.D. on 10/03/2019 at 12:47 Approved by: Js Conway M.D. on 10/03/2019 at 12:50
--- NOTE | 2019-10-03 11:09 | DI.RAD.S_ITS ---
PROCEDURE: XR SHOULDER RT MIN 2V INDICATIONS: RIGHT SHOULDER AND RIGHT RIB PAIN POST FALL TECHNIQUE: 3 views of the shoulder were acquired. COMPARISON: [facility], CR, XR SHOULDER LT MIN 2V, 01/06/2018, 12:19. FINDINGS: Bones: No fractures or dislocations. No suspicious bony lesions. Visualized ribs appear intact. Moderate osteoarthritis. Soft tissues: No suspicious soft tissue calcifications. IMPRESSION: Moderate shoulder joint degeneration Dictated by: Js Conway M.D. on 10/03/2019 at 12:41 Approved by: Js Conway M.D. on 10/03/2019 at 12:47
== END ==
PROVIDERS: PCP Internal Medicine; Referring Provider Physician Assistant; Visit Provider Physician Assistant
DX: M25.511 Pain in right shoulder (principal); R07.81 Pleurodynia; M19.011 Primary osteoarthritis, right shoulder
CPT/HCPCS: 71101; 73030

== ENCOUNTER 2020-01-19 10:30 | Outpatient (RCR) | payer MEDICARE, OTHER, SELFPAY ==
--- NOTE | 2020-01-04 14:22 | PT.OIE ---
Current Diagnoses Unspecified osteoarthritis, unspecified site (01/04/20) Pain in left shoulder (01/04/20) Low back pain (01/04/20) Difficulty in walking, not elsewhere classified (01/04/20) Unsteadiness on feet (01/04/20) Weakness (01/04/20) Past Medical History (Last Reviewed 09/27/19 @ 11:25 by Caridad Delaney DO) Allergic rhinitis (Chronic) Arachnoid cyst (Chronic) B12 deficiency (Chronic) Cellulitis (Resolved) Chronic kidney disease (Chronic) Degenerative cervical disc (Chronic) DVT (deep venous thrombosis) (Resolved) Gouty arthropathy (Chronic) Hearing loss (Acute) Hypertension (Acute) Osteoarthritis (Chronic) Peptic ulcer disease (Chronic) Prostate cancer (Chronic) Vertigo (Chronic) Past Surgical History (Last Reviewed 09/27/19 @ 11:25 by Caridad Delaney DO) History of knee replacement (Resolved) Hx of appendectomy (Resolved) Hx of laminectomy (Resolved) Hx of radical prostatectomy (Resolved) Hx of rotator cuff surgery (Resolved) Hx of thumb surgery (Resolved) No pertinent past surgical history (Acute) Visit Care Team Role Provider Type Duke Felix MD Attending Provider Physician Family Provider Primary Care Provider Referring Provider Specialty: Internal Medicine Address: [address] [place] [address], [facility] Email: [email or web address] Physical Therapy Initial Evaluation PT-OP-A Visit Information Start: 01/03/20 17:53 Freq: Status: Active Protocol: Document 01/04/20 08:07 [facility] (Rec: 01/04/20 09:04 [facility] [id number]) Out-Patient Physical Therapy Visit Information Visit Information Visit Type Initial Evaluation Visit Note 03/11 Visit Start Time 08:18 Visit Stop Time 09:00 Total Visit Minutes 42 Visit Number 1 Number of MR TEACHER Visits 0 PT-OP-B Current Condition Start: 01/03/20 17:53 Freq: Status: Active Protocol: Document 01/04/20 08:07 [facility] (Rec: 01/04/20 09:04 [facility] [id number]) Current Condition History of Current Condition Onset Date past couple years Current Complaints frequent falls History of Current Condition Pt reports a jason bout 3 weeks ago he fell into the bushes when going to the truck . Pt fell a few weeks ago w/ concussion and broken nose also. He had tripped over his dog. Pt reports he has started walking and has been using his walking sticks. Pt reports a lot of problems with his knees. Pt reports he has about 3 concussions. Pt reports pain in his neck and shoulder since hitting his head last fall but delvalle shave history of R sided neck pain. Pt was trying ot catch a falling crate and L shoulder popped and has pain and lack of ROM. Dog has pulled him over a couple of times. L knee gives out on him. Pt used to be able to do 1/2 mile in the AM and 1/2 mile in the PM but lately has only been able to do 1/4 mile in AM and 1/4 in PM. Pt reports he has to be careful when he turns to left especially. 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, memory loss, [place], hx of gout PT-OP-C Subjective Start: 01/03/20 17:53 Freq: Status: Active Protocol: Document 01/04/20 08:07 [facility] (Rec: 01/04/20 14:08 [facility] [id number]) Patient Questionnaires ABC- Activity Specific Balance Confidence Scale ABC Score 20.6 ABC Functional Impairment 80 to <100% Impaired (Score 1- 20) PT-OP-D Balance Start: 01/03/20 17:53 Freq: Status: Active Protocol: Document 01/04/20 08:07 [facility] (Rec: 01/04/20 14:06 [facility] [id number]) Balance Tests Perez Balance Test Perez Balance Test Score 30/56 Perez Impairment Rating 40 to 59% Impaired (Score 23- 33) PT-OP-E Functional Tests Start: 01/03/20 17:53 Freq: Status: Active Protocol: Document 01/04/20 08:07 [facility] (Rec: 01/04/20 09:04 [facility] [id number]) Functional Tests 30 Second Sit to Stand Test Score 4 Comments silver chair using hands Five Times Sit to Stand Test Score 38 sec Comments using hands-silver chair Tinetti Balance and Gait Assessment Balance Score 9 Gait Score 9 Composite Score 18 Composite Score Impairment Rating 20 to <40% Impaired (Score 17- 22) PT-OP-G Mobility & Gait Start: 01/03/20 17:53 Freq: Status: Active Protocol: Document 01/04/20 08:07 [facility] (Rec: 01/04/20 09:04 [facility] [id number]) OP Gait Assessment Comments Gait Comments Amb with lat leaning & dec push off and uses B walking sticks PT-OP-J Posture/Palpation/Skin Start: 01/03/20 17:53 Freq: Status: Active Protocol: Document 01/04/20 08:07 [facility] (Rec: 01/04/20 14:08 [facility] [id number]) Posture Evaluation Comments Posture Comments fwd rounded shoulder & fwd head PT-OP-M Strength Start: 01/03/20 17:53 Freq: Status: Active Protocol: Document 01/04/20 08:07 [facility] (Rec: 01/04/20 09:04 [facility] [id number]) Shoulder Strength Shoulder Manual Muscle Testing Left Comments unable to lift fwd or to side greater lobo 30 deg Hip Strength Hip Manual Muscle Testing Right Flexion (L2) 4- Good- Abduction 3+ Fair+ External Rotation 4- Good- Internal Rotation 3+ Fair+ Left Flexion (L2) 3+ Fair+ Abduction 3+ Fair+ External Rotation 3+ Fair+ Internal Rotation 4 Good Knee Strength Knee Manual Muscle Testing Right Flexion (S2) 4+ Good+ Extension (L3) 4+ Good+ Left Flexion (S2) 4+ Good+ Extension (L3) 4+ Good+ Comments pain in knee Ankle/Foot Strength Ankle and Foot Manual Muscle Testing Right Dorsiflexion (L4) 4- Good- Left Dorsiflexion (L4) 3+ Fair+ PT-OP-T Assessment and Plan Start: 01/03/20 17:53 Freq: Status: Active Protocol: Document 01/04/20 08:07 [facility] (Rec: 01/04/20 09:04 [facility] [id number]) Physical Therapy Assessment Rehab Potential Rehabilitation Potential Good Evaluation Complexity Number of Personal Factors/Comorbidities 3 or More Number of Body Systems Impaired 4 or More Clinical Presentation at Evaluation Evolving Impairments Impairments Activity Tolerance,Balance, Functional Activities, Functional Mobility,Gait, Strength Goals balance Impairment tinnetti-high risk 30/56 -high risk Short Term Goal (STG) Pt will score at least 24/28 on tinneti to show low risk for falls STG Duration 02/19/20 Ed Educational Aide Goal (LTG) Pt will score at 45/56 to show low risk for falls on PEREZ balance assessment. LTG Duration 03/05/20 activities Intermediate Goal (LTG) Pt will improve ABC scale to 50% to dec risk for falls in order to show improved confidence in ability to do daily activities. LTG Duration 03/05/20 Strength Intermediate Goal (LTG) Pt will have at least 4+/5 LE strength in order to allow pt to have greater ease with getting around. LTG Duration 03/22/19 ROM Ed Educational Aide Goal (LTG) Pt will be able to raise L shoulder to 90 deg in abd & flex in order to allow greater use during ADLs. LTG Duration 03/05/20 Assessment Summary Assessment Pt presents to therapy with history of multiple falls with recent frequent falls. He has decreased leg strength and limited mobility with L shoulder d/t falls onto LUE with associated pain. He is considered high risk for falls based on tinetti and PEREZ balance scales. He had mult LOB when standing and talking and when walking in evaluation today. He would benefit from skilled PT to dec shoulder pain & knee pain, improve balance, inc LE & UE strength & ROm and work on gait mechanics & posture. Physical Therapy Plan Frequency and Duration Frequency of Treatment 2x/Week Duration of Treatment 2 months Plan of Care Start Date 01/04/20 Plan of Care End Date 03/05/20 Therapeutic Interventions Therapeutic Interventions Aquatic Therapy,Balance Training,Gait Training,Home Exercise Program,Manual Therapy,Neuromuscular Re- education,Patient/Caregiver Education,Self-Care/Home Management,Soft Tissue Mobilization,Taping, Therapeutic Activities, Therapeutic Exercises Modalities Cold Pack/Ice Massage,Electric Stimulation,Hot Packs Next Visit Focus/Plan Next Note Type Treatment Note Next Visit Plan devolop HEP (bridges, s/l abd, clamshell, sit to stands), balance board, start on stepper, leg press, side steps
--- NOTE | 2020-01-04 14:22 | PT.OPPOC ---
Physical, Occupational & Speech Therapy At [facility] Current Diagnoses Unspecified osteoarthritis, unspecified site (01/04/20) Pain in left shoulder (01/04/20) Low back pain (01/04/20) Difficulty in walking, not elsewhere classified (01/04/20) Unsteadiness on feet (01/04/20) Weakness (01/04/20) Visit Care Team Role Provider Type Duke Felix MD Attending Provider Physician Family Provider Primary Care Provider Referring Provider Specialty: Internal Medicine Address: [address] [place] [address], [facility] Email: [email or web address] Plan Of Care PT-OP-T Assessment and Plan Start: 01/03/20 17:53 Freq: Status: Active Protocol: Document 01/04/20 08:07 [facility] (Rec: 01/04/20 09:04 [facility] [id number]) Physical Therapy Assessment Rehab Potential Rehabilitation Potential Good Evaluation Complexity Number of Personal Factors/Comorbidities 3 or More Number of Body Systems Impaired 4 or More Clinical Presentation at Evaluation Evolving Impairments Impairments Activity Tolerance,Balance, Functional Activities, Functional Mobility,Gait, Strength Goals balance Impairment 18/24 tinnetti-high risk 30/56 -high risk Short Term Goal (STG) Pt will score at least 24/28 on tinneti to show low risk for falls STG Duration 02/19/20 Quality Assurance Advisor Goal (LTG) Pt will score at 45/56 to show low risk for falls on PEREZ balance assessment. LTG Duration 03/05/20 activities Quality Assurance Advisor Goal (LTG) Pt will improve ABC scale to 50% to dec risk for falls in order to show improved confidence in ability to do daily activities. LTG Duration 03/05/20 Strength Fdc Goal (LTG) Pt will have at least 4+/5 LE strength in order to allow pt to have greater ease with getting around. LTG Duration 03/22/19 ROM Quality Assurance Advisor Goal (LTG) Pt will be able to raise L shoulder to 90 deg in abd & flex in order to allow greater use during ADLs. LTG Duration 03/05/20 Assessment Summary Assessment Pt presents to therapy with history of multiple falls with recent frequent falls. He has decreased leg strength and limited mobility with L shoulder d/t falls onto LUE with associated pain. He is considered high risk for falls based on tinetti and PEREZ balance scales. He had mult LOB when standing and talking and when walking in evaluation today. He would benefit from skilled PT to dec shoulder pain & knee pain, improve balance, inc LE & UE strength & ROm and work on gait mechanics & posture. Physical Therapy Plan Frequency and Duration Frequency of Treatment 2x/Week Duration of Treatment 2 months Plan of Care Start Date 01/04/20 Plan of Care End Date 03/05/20 Therapeutic Interventions Therapeutic Interventions Aquatic Therapy,Balance Training,Gait Training,Home Exercise Program,Manual Therapy,Neuromuscular Re- education,Patient/Caregiver Education,Self-Care/Home Management,Soft Tissue Mobilization,Taping, Therapeutic Activities, Therapeutic Exercises Modalities Cold Pack/Ice Massage,Electric Stimulation,Hot Packs Next Visit Focus/Plan Next Note Type Treatment Note Next Visit Plan devolop HEP (bridges, s/l abd, clamshell, sit to stands), balance board, start on stepper, leg press, side steps Plan of Care Dates Plan of Care Start Date 01/04/20 Plan of Care End Date 03/05/20 Electronically Signed by: Yesenia Wu, PT 01/04/20 [id number] Please Sign and Return: I have reviewed this Plan of Care and certify that the skilled therapy services above are required to meet the patient?s needs. Physician Signature Date Printed Name and Credentials Clinical Instructor Signature Printed Name and Credentials
--- NOTE | 2020-01-09 09:46 | PT.OTN ---
Current Diagnoses Unspecified osteoarthritis, unspecified site (01/09/20) Pain in left shoulder (01/09/20) Low back pain (01/09/20) Difficulty in walking, not elsewhere classified (01/09/20) Unsteadiness on feet (01/09/20) Weakness (01/09/20) Physical Therapy Treatment Note PT-OP-A Visit Information Start: 01/03/20 17:53 Freq: Status: Active Protocol: Document 01/09/20 09:13 [facility] (Rec: 01/09/20 09:44 [facility] [id number]) Out-Patient Physical Therapy Visit Information Visit Information Visit Type Treatment Note Visit Note 04/11 Visit Start Time 09:03 Visit Stop Time 09:43 Total Visit Minutes 40 Visit Number 2 Number of CHERRY GROWER Visits 0 PT-OP-B Current Condition Start: 01/03/20 17:53 Freq: Status: Active Protocol: Document 01/04/20 08:07 [facility] (Rec: 01/04/20 09:04 [facility] [id number]) Current Condition History of Current Condition Onset Date past couple years Current Complaints frequent falls History of Current Condition Pt reports a jason bout 3 weeks ago he fell into the bushes when going to the truck . Pt fell a few weeks ago w/ concussion and broken nose also. He had tripped over his dog. Pt reports he has started walking and has been using his walking sticks. Pt reports a lot of problems with his knees. Pt reports he has about 3 concussions. Pt reports pain in his neck and shoulder since hitting his head last fall but delvalle shave history of R sided neck pain. Pt was trying ot catch a falling crate and L shoulder popped and has pain and lack of ROM. Dog has pulled him over a couple of times. L knee gives out on him. Pt used to be able to do 1/2 mile in the AM and 1/2 mile in the PM but lately has only been able to do 1/4 mile in AM and 1/4 in PM. Pt reports he has to be careful when he turns to left especially. 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, memory loss, [place], hx of gout PT-OP-C Subjective Start: 01/03/20 17:53 Freq: Status: Active Protocol: Document 01/09/20 09:13 [facility] (Rec: 01/09/20 09:44 [facility] [id number]) OP-PT Subjective Patient Comments Patient Comments Pt reports no change PT-OP-D Balance Start: 01/03/20 17:53 Freq: Status: Active Protocol: Document 01/04/20 08:07 [facility] (Rec: 01/04/20 14:06 [facility] [id number]) Balance Tests Perez Balance Test Perez Balance Test Score 30/56 Perez Impairment Rating 40 to 59% Impaired (Score 23- 33) PT-OP-E Functional Tests Start: 01/03/20 17:53 Freq: Status: Active Protocol: Document 01/04/20 08:07 [facility] (Rec: 01/04/20 09:04 [facility] [id number]) Functional Tests 30 Second Sit to Stand Test Score 4 Comments silver chair using hands Five Times Sit to Stand Test Score 38 sec Comments using hands-silver chair Tinetti Balance and Gait Assessment Balance Score 9 Gait Score 9 Composite Score 18 Composite Score Impairment Rating 20 to <40% Impaired (Score 17- 22) PT-OP-G Mobility & Gait Start: 01/03/20 17:53 Freq: Status: Active Protocol: Document 01/04/20 08:07 [facility] (Rec: 01/04/20 09:04 [facility] [id number]) OP Gait Assessment Comments Gait Comments Amb with lat leaning & dec push off and uses B walking sticks PT-OP-J Posture/Palpation/Skin Start: 01/03/20 17:53 Freq: Status: Active Protocol: Document 01/04/20 08:07 [facility] (Rec: 01/04/20 14:08 [facility] [id number]) Posture Evaluation Comments Posture Comments fwd rounded shoulder & fwd head PT-OP-M Strength Start: 01/03/20 17:53 Freq: Status: Active Protocol: Document 01/04/20 08:07 [facility] (Rec: 01/04/20 09:04 [facility] [id number]) Shoulder Strength Shoulder Manual Muscle Testing Left Comments unable to lift fwd or to side greater lobo 30 deg Hip Strength Hip Manual Muscle Testing Right Flexion (L2) 4- Good- Abduction 3+ Fair+ External Rotation 4- Good- Internal Rotation 3+ Fair+ Left Flexion (L2) 3+ Fair+ Abduction 3+ Fair+ External Rotation 3+ Fair+ Internal Rotation 4 Good Knee Strength Knee Manual Muscle Testing Right Flexion (S2) 4+ Good+ Extension (L3) 4+ Good+ Left Flexion (S2) 4+ Good+ Extension (L3) 4+ Good+ Comments pain in knee Ankle/Foot Strength Ankle and Foot Manual Muscle Testing Right Dorsiflexion (L4) 4- Good- Left Dorsiflexion (L4) 3+ Fair+ PT-OP-Q Treatments Start: 01/03/20 17:53 Freq: Status: Active Protocol: Document 01/09/20 09:13 [facility] (Rec: 01/09/20 09:44 [facility] [id number]) Cardio Equipment Recumbent Elliptical (Biodex) Duration (Minutes) 7 Resistance 6 Seat Position 15 Gym Equipment Shuttle Balance yellow clips Details w/head turns Comments WBOS, NBOS, staggered stance B Therapeutic Exercises Supine Exercises bridge Side bilateral Reps/Minutes 2x12 flex Supine Exercise Name AAROM LUE w/tbar Reps/Minutes 15 Sidelying Exercises abd Side bilateral Reps/Minutes 10 clamshell Side bilateral Reps/Minutes 15 Standing Exercises sit to stand Side bilateral Equipment Used hands Reps/Minutes 10 PF Side bilateral Equipment Used rail Reps/Minutes 20 DF Standing Exercise Name alt Side bilateral Equipment Used rail Reps/Minutes 15 PT-OP-T Assessment and Plan Start: 01/03/20 17:53 Freq: Status: Active Protocol: Document 01/09/20 09:13 [facility] (Rec: 01/09/20 09:44 [facility] [id number]) Physical Therapy Assessment Goals balance Impairment 18 tinnetti-high risk 30/56 -high risk Short Term Goal (STG) Pt will score at least 24/28 on tinneti to show low risk for falls STG Duration 02/19/20 Assisted Goal (LTG) Pt will score at 45/56 to show low risk for falls on PEREZ balance assessment. LTG Duration 03/05/20 activities Assisted Goal (LTG) Pt will improve ABC scale to 50% to dec risk for falls in order to show improved confidence in ability to do daily activities. LTG Duration 03/05/20 Strength Assisted Goal (LTG) Pt will have at least 4+/5 LE strength in order to allow pt to have greater ease with getting around. LTG Duration 03/22/19 ROM [facility] Goal (LTG) Pt will be able to raise L shoulder to 90 deg in abd & flex in order to allow greater use during ADLs. LTG Duration 03/05/20 Assessment Summary Assessment Pt required max cueing during exercises to maintain netra positioning di s/l to avoid rolling. He was challenged by all exercises and noted core working and fatigue. CHallenge noted d/t balance board di w /head turns Physical Therapy Plan Frequency and Duration Frequency of Treatment 2x/Week Duration of Treatment 2 months Plan of Care Start Date 01/04/20 Plan of Care End Date 03/05/20 Next Visit Focus/Plan Next Note Type Treatment Note Next Visit Plan review HEP, progress balance and LE strengthening
--- NOTE | 2020-01-11 12:15 | PT.OTN ---
Current Diagnoses Unspecified osteoarthritis, unspecified site (01/11/20) Pain in left shoulder (01/11/20) Low back pain (01/11/20) Difficulty in walking, not elsewhere classified (01/11/20) Unsteadiness on feet (01/11/20) Weakness (01/11/20) Physical Therapy Treatment Note PT-OP-A Visit Information Start: 01/03/20 17:53 Freq: Status: Active Protocol: Document 01/11/20 10:20 MA (Rec: 01/11/20 11:02 MA [id number]) Out-Patient Physical Therapy Visit Information Visit Information Visit Type Treatment Note Visit Note 05/09 Visit Start Time 10:15 Visit Stop Time 11:00 Total Visit Minutes 45 Visit Number 0 Number of BANQUET MANAGER Visits 1 PT-OP-B Current Condition Start: 01/03/20 17:53 Freq: Status: Active Protocol: Document 01/04/20 08:07 [facility] (Rec: 01/04/20 09:04 [facility] [id number]) Current Condition History of Current Condition Onset Date past couple years Current Complaints frequent falls History of Current Condition Pt reports a jason bout 3 weeks ago he fell into the bushes when going to the truck . Pt fell a few weeks ago w/ concussion and broken nose also. He had tripped over his dog. Pt reports he has started walking and has been using his walking sticks. Pt reports a lot of problems with his knees. Pt reports he has about 3 concussions. Pt reports pain in his neck and shoulder since hitting his head last fall but delvalle shave history of R sided neck pain. Pt was trying ot catch a falling crate and L shoulder popped and has pain and lack of ROM. Dog has pulled him over a couple of times. L knee gives out on him. Pt used to be able to do 1/2 mile in the AM and 1/2 mile in the PM but lately has only been able to do 1/4 mile in AM and 1/4 in PM. Pt reports he has to be careful when he turns to left especially. 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, memory loss, [place], hx of gout PT-OP-C Subjective Start: 01/03/20 17:53 Freq: Status: Active Protocol: Document 01/11/20 10:20 MA (Rec: 01/11/20 11:02 MA [id number]) OP-PT Subjective Patient Comments Patient Comments Pt reports he has been unable to bend his toes of his left foot today except the big toe PT-OP-D Balance Start: 01/03/20 17:53 Freq: Status: Active Protocol: Document 01/04/20 08:07 [facility] (Rec: 01/04/20 14:06 [facility] [id number]) Balance Tests Perez Balance Test Perez Balance Test Score 30/56 Perez Impairment Rating 40 to 59% Impaired (Score 23- 33) PT-OP-E Functional Tests Start: 01/03/20 17:53 Freq: Status: Active Protocol: Document 01/04/20 08:07 [facility] (Rec: 01/04/20 09:04 [facility] [id number]) Functional Tests 30 Second Sit to Stand Test Score 4 Comments silver chair using hands Five Times Sit to Stand Test Score 38 sec Comments using hands-silver chair Tinetti Balance and Gait Assessment Balance Score 9 Gait Score 9 Composite Score 18 Composite Score Impairment Rating 20 to <40% Impaired (Score 17- 22) PT-OP-G Mobility & Gait Start: 01/03/20 17:53 Freq: Status: Active Protocol: Document 01/04/20 08:07 [facility] (Rec: 01/04/20 09:04 [facility] [id number]) OP Gait Assessment Comments Gait Comments Amb with lat leaning & dec push off and uses B walking sticks PT-OP-J Posture/Palpation/Skin Start: 01/03/20 17:53 Freq: Status: Active Protocol: Document 01/04/20 08:07 [facility] (Rec: 01/04/20 14:08 [facility] [id number]) Posture Evaluation Comments Posture Comments fwd rounded shoulder & fwd head PT-OP-M Strength Start: 01/03/20 17:53 Freq: Status: Active Protocol: Document 01/04/20 08:07 [facility] (Rec: 01/04/20 09:04 [facility] [id number]) Shoulder Strength Shoulder Manual Muscle Testing Left Comments unable to lift fwd or to side greater lobo 30 deg Hip Strength Hip Manual Muscle Testing Right Flexion (L2) 4- Good- Abduction 3+ Fair+ External Rotation 4- Good- Internal Rotation 3+ Fair+ Left Flexion (L2) 3+ Fair+ Abduction 3+ Fair+ External Rotation 3+ Fair+ Internal Rotation 4 Good Knee Strength Knee Manual Muscle Testing Right Flexion (S2) 4+ Good+ Extension (L3) 4+ Good+ Left Flexion (S2) 4+ Good+ Extension (L3) 4+ Good+ Comments pain in knee Ankle/Foot Strength Ankle and Foot Manual Muscle Testing Right Dorsiflexion (L4) 4- Good- Left Dorsiflexion (L4) 3+ Fair+ PT-OP-Q Treatments Start: 01/03/20 17:53 Freq: Status: Active Protocol: Document 01/11/20 10:20 MA (Rec: 01/11/20 11:02 MA [id number]) Cardio Equipment Recumbent Elliptical (Biodex) Duration (Minutes) 6 Resistance 3 Seat Position 15 Other 377 steps Therapeutic Exercises Supine Exercises bridge Side bilateral Reps/Minutes 2x6 Sidelying Exercises abd Side bilateral Reps/Minutes 8 clamshell Side bilateral Reps/Minutes 8 Self-Care/Home Management Treatment Education Other Education Reviewed with pt if he has decreased ROM, increased swelling, or any increase in nerve pain numbness or tingling to call his dr. PT-OP-T Assessment and Plan Start: 01/03/20 17:53 Freq: Status: Active Protocol: Document 01/11/20 10:20 MA (Rec: 01/11/20 11:02 MA [id number]) Physical Therapy Assessment Goals balance Impairment tinnetti-high risk 30/56 -high risk Short Term Goal (STG) Pt will score at least 24/28 on tinneti to show low risk for falls STG Duration 02/19/20 Cane Stripper Goal (LTG) Pt will score at 45/56 to show low risk for falls on PEREZ balance assessment. LTG Duration 03/05/20 activities Cane Stripper Goal (LTG) Pt will improve ABC scale to 50% to dec risk for falls in order to show improved confidence in ability to do daily activities. LTG Duration 03/05/20 Strength Cane Stripper Goal (LTG) Pt will have at least 4+/5 LE strength in order to allow pt to have greater ease with getting around. LTG Duration 03/22/19 ROM Cane Stripper Goal (LTG) Pt will be able to raise L shoulder to 90 deg in abd & flex in order to allow greater use during ADLs. LTG Duration 03/05/20 Assessment Summary Assessment Due to pt's c/o of lack of ROM of L toes today, PT came and did nerve testing. Pt with mild sensation loss on L second toe and R top of foot. Swelling on L distal lateral maleolus. PT will inform pt's dr. Pt was more tired with exercises today but had no pain while on the recumbant stepper. Pt is [place] and forgot hearing aid so lots of tactile cues were used during ther ex and progress today was slow. Physical Therapy Plan Frequency and Duration Frequency of Treatment 2x/Week Duration of Treatment 2 months Plan of Care Start Date 01/04/20 Plan of Care End Date 03/05/20 Therapeutic Interventions Therapeutic Interventions Aquatic Therapy,Balance Training,Gait Training,Home Exercise Program,Manual Therapy,Neuromuscular Re- education,Patient/Caregiver Education,Self-Care/Home Management,Soft Tissue Mobilization,Taping, Therapeutic Activities, Therapeutic Exercises Modalities Cold Pack/Ice Massage,Electric Stimulation,Hot Packs Next Visit Focus/Plan Next Note Type Treatment Note Next Visit Plan review HEP, progress balance and LE strengthening Check pt's LLE for swelling or increased numbness prior to session start.
--- NOTE | 2020-01-19 11:22 | PT.OTN ---
Current Diagnoses Unspecified osteoarthritis, unspecified site (01/19/20) Pain in left shoulder (01/19/20) Low back pain (01/19/20) Difficulty in walking, not elsewhere classified (01/19/20) Unsteadiness on feet (01/19/20) Weakness (01/19/20) Physical Therapy Treatment Note PT-OP-A Visit Information Start: 01/03/20 17:53 Freq: Status: Active Protocol: Document 01/19/20 10:38 [facility] (Rec: 01/19/20 11:22 [facility] [id number]) Out-Patient Physical Therapy Visit Information Visit Information Visit Type Treatment Note Visit Note 06/09 Visit Start Time 10:35 Visit Stop Time 11:15 Total Visit Minutes 40 Visit Number 4 Number of LOAN ANALYST Visits 0 PT-OP-B Current Condition Start: 01/03/20 17:53 Freq: Status: Active Protocol: Document 01/04/20 08:07 [facility] (Rec: 01/04/20 09:04 [facility] [id number]) Current Condition History of Current Condition Onset Date past couple years Current Complaints frequent falls History of Current Condition Pt reports a jason bout 3 weeks ago he fell into the bushes when going to the truck . Pt fell a few weeks ago w/ concussion and broken nose also. He had tripped over his dog. Pt reports he has started walking and has been using his walking sticks. Pt reports a lot of problems with his knees. Pt reports he has about 3 concussions. Pt reports pain in his neck and shoulder since hitting his head last fall but delvalle shave history of R sided neck pain. Pt was trying ot catch a falling crate and L shoulder popped and has pain and lack of ROM. Dog has pulled him over a couple of times. L knee gives out on him. Pt used to be able to do 1/2 mile in the AM and 1/2 mile in the PM but lately has only been able to do 1/4 mile in AM and 1/4 in PM. Pt reports he has to be careful when he turns to left especially. 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 (Rec: 01/19/20 11:22 [facility] [id number]) OP-PT Subjective Patient Comments Patient Comments Pt reports he felt crummy the other AM. knees are hurting PT-OP-D Balance Start: 01/03/20 17:53 Freq: Status: Active Protocol: Document 01/04/20 08:07 [facility] (Rec: 01/04/20 14:06 [facility] [id number]) Balance Tests Perez Balance Test Perez Balance Test Score 30/56 Perez Impairment Rating 40 to 59% Impaired (Score 23- 33) PT-OP-E Functional Tests Start: 01/03/20 17:53 Freq: Status: Active Protocol: Document 01/04/20 08:07 [facility] (Rec: 01/04/20 09:04 [facility] [id number]) Functional Tests 30 Second Sit to Stand Test Score 4 Comments silver chair using hands Five Times Sit to Stand Test Score 38 sec Comments using hands-silver chair Tinetti Balance and Gait Assessment Balance Score 9 Gait Score 9 Composite Score 18 Composite Score Impairment Rating 20 to <40% Impaired (Score 17- 22) PT-OP-G Mobility & Gait Start: 01/03/20 17:53 Freq: Status: Active Protocol: Document 01/04/20 08:07 [facility] (Rec: 01/04/20 09:04 [facility] [id number]) OP Gait Assessment Comments Gait Comments Amb with lat leaning & dec push off and uses B walking sticks PT-OP-J Posture/Palpation/Skin Start: 01/03/20 17:53 Freq: Status: Active Protocol: Document 01/04/20 08:07 [facility] (Rec: 01/04/20 14:08 [facility] [id number]) Posture Evaluation Comments Posture Comments fwd rounded shoulder & fwd head PT-OP-M Strength Start: 01/03/20 17:53 Freq: Status: Active Protocol: Document 01/04/20 08:07 [facility] (Rec: 01/04/20 09:04 [facility] [id number]) Shoulder Strength Shoulder Manual Muscle Testing Left Comments unable to lift fwd or to side greater lobo 30 deg Hip Strength Hip Manual Muscle Testing Right Flexion (L2) 4- Good- Abduction 3+ Fair+ External Rotation 4- Good- Internal Rotation 3+ Fair+ Left Flexion (L2) 3+ Fair+ Abduction 3+ Fair+ External Rotation 3+ Fair+ Internal Rotation 4 Good Knee Strength Knee Manual Muscle Testing Right Flexion (S2) 4+ Good+ Extension (L3) 4+ Good+ Left Flexion (S2) 4+ Good+ Extension (L3) 4+ Good+ Comments pain in knee Ankle/Foot Strength Ankle and Foot Manual Muscle Testing Right Dorsiflexion (L4) 4- Good- Left Dorsiflexion (L4) 3+ Fair+ PT-OP-Q Treatments Start: 01/03/20 17:53 Freq: Status: Active Protocol: Document 01/19/20 10:38 [facility] (Rec: 01/19/20 11:22 [facility] [id number]) Cardio Equipment Recumbent Elliptical (Biodex) Duration (Minutes) 6 Resistance 4 Seat Position 15 Other 370 steps Gym Equipment Shuttle Balance yellow clips Details w/head turns Comments WBOS, NBOS, staggered stance B Therapeutic Exercises Supine Exercises bridge Side bilateral Reps/Minutes 20 flex Supine Exercise Name AAROM LUE w/tbar Reps/Minutes 15 Sidelying Exercises abd Side bilateral Reps/Minutes 12 clamshell Side bilateral Reps/Minutes 12 Standing Exercises sit to stand Side bilateral Equipment Used hands Reps/Minutes 10 PF Side bilateral Equipment Used rail Reps/Minutes 20 DF Standing Exercise Name alt Side bilateral Equipment Used rail Reps/Minutes 15 PT-OP-T Assessment and Plan Start: 01/03/20 17:53 Freq: Status: Active Protocol: Document 01/19/20 10:38 [facility] (Rec: 01/19/20 11:22 [facility] [id number]) Physical Therapy Assessment Goals balance Impairment tinnetti-high risk 30/56 -high risk Short Term Goal (STG) Pt will score at least 24/28 on tinneti to show low risk for falls STG Duration 02/19/20 Group Home Goal (LTG) Pt will score at 45/56 to show low risk for falls on PEREZ balance assessment. LTG Duration 03/05/20 activities Information Technology Security Manager Goal (LTG) Pt will improve ABC scale to 50% to dec risk for falls in order to show improved confidence in ability to do daily activities. LTG Duration 03/05/20 Strength Group Home Goal (LTG) Pt will have at least 4+/5 LE strength in order to allow pt to have greater ease with getting around. LTG Duration 03/22/19 ROM Information Technology Security Manager Goal (LTG) Pt will be able to raise L shoulder to 90 deg in abd & flex in order to allow greater use during ADLs. LTG Duration 03/05/20 Assessment Summary Assessment Pt encouraged to check BETSY in town for tips to walking sticks and talk to family about finding replacements online [employer]. He does require cuieng with overhead flex for hand position and no rolling for s/l exercises. Physical Therapy Plan Frequency and Duration Frequency of Treatment 2x/Week Duration of Treatment 2 months Plan of Care Start Date 01/04/20 Plan of Care End Date 03/05/20 Next Visit Focus/Plan Next Note Type Treatment Note Next Visit Plan progress balance and LE strengthening
--- NOTE | 2020-01-23 09:17 | PT-OP ANOTE ---
Pt reports he is still in ER and thought his appt was later today but hadn't called yet. Pt educated to talk to re: doing PT later this week and cancel his appt if needed.
--- NOTE | 2020-01-30 14:13 | PT-OP ANOTE ---
Pt was called re: no show. He reports having changes in eye sight since last fall and is now using a walker. He notes when he rolls to L in bed he is getting dizzy. Pt encourage dto call primary to dunia a follow up after ER visit. Primary called to inform re: these issues and asked to follow up with pt as needed and follow up with PT to inform if pt ready to return to PT. TOld pt we would cancel this Thursday's appt d/t awaiting MD approval and to allow further time to recover.
--- NOTE | 2020-02-07 10:40 | PT-OP ANOTE ---
Pt called and left message re: no show and no show policy. Pt informed of next scheduled appointment and asked to call to cancel if cannot make it.
--- NOTE | 2020-02-16 18:15 | PT.OPDS ---
Current Diagnoses Unspecified osteoarthritis, unspecified site (01/19/20) Pain in left shoulder (01/19/20) Low back pain (01/19/20) Unsteadiness on feet (01/19/20) Weakness (01/19/20) Visit Care Team Role Provider Type Duke Felix MD Attending Provider Physician Family Provider Primary Care Provider Referring Provider Specialty: Internal Medicine Address: [address] [place] [address], [facility] Email: [email or web address] Visit Number Visit Number 4 Discharge Summary PT-OP-T Assessment and Plan Start: 01/03/20 17:53 Freq: Status: Active Protocol: Document 02/16/20 18:14 [facility] (Rec: 02/16/20 18:15 [facility] [id number]) Physical Therapy Assessment Assessment Summary Assessment Pt cancelled all PT appointments d/t wanting to go see ortho prior to doing PT. He is very concerned about B shoulder pain and neck pain. Discussed with pt re: trying therapy, but pt very concerned about hurting his shoulders and is planning to call primary to get a referral to an ortho. At this time, DC PT d/t pt request. Physical Therapy Plan Discharge Physical Therapy Discharge Reasons Patient Request
== END 2020-02-29 14:17 ==
LOC: PHYS 10:30
PROVIDERS: Family Provider Internal Medicine; PCP Internal Medicine; Referring Provider Internal Medicine; Visit Provider Internal Medicine
DX: R26.81 Unsteadiness on feet (principal); M19.90 Unspecified osteoarthritis, unspecified site; R53.1 Weakness; M54.5 Low back pain; M25.512 Pain in left shoulder
CPT/HCPCS: 97110; 97112; 97162; 97535

== ENCOUNTER 2020-01-22 10:56 | Emergency (ER) | payer MEDICARE, OTHER, SELFPAY ==
[2020-01-22] VITALS (48 sets, daily range): BP systolic 134–224; BP diastolic 80–129; PULSE 52–93; RESP 13–39; TEMP 36.6; O2SAT 92–99; BMI 29.6
--- NOTE | 2020-01-22 11:09 | ED.FALL ---
HPI - Fall <Keerthi Barron, DO - Last Filed: 01/27/20 07:28> General Chief Complaint: Fall Stated Complaint: Fall, confusion Time Seen by Provider: 01/22/20 11:02 Source: patient and EMS Mode of arrival: EMS Limitations: no limitations History of Present Illness HPI Narrative: This is an 84-year-old male who states that he was up at 2:00 a.m. to let his dog out to urinate when he fell and hit his head on the door. Patient states he was able to pull himself to the bathroom and after 2 tries stand. He states he has felt like everything is much slower after this happened. He does recalling falling and hitting the ground. He states he has fallen in the past and he does fall occasionally. He does take an aspirin 81 mg daily. He denies any headache currently, he is unsure if he has had any vision changes. He is not having any nausea or vomiting. He does have some pain with palpation of his neck but does not describe neck pain when asked. He denies any pain elsewhere currently. No shortness of breath or chest pain or pressure. And he denies any new GI or urinary symptoms. He states he has had a longstanding issue with his left foot dragging intermittently and follows with PT. he has not noted any new numbness or tingling in his extremities. He was transported by EMS, he lives in assisted living facility and was able to ambulate to the ambulance. Related Data Home Medications Medication Instructions Recorded Confirmed amlodipine 5 mg PO DAILY 11/20/17 01/22/20 aspirin 81 mg PO DAILY 11/20/17 09/27/19 lisinopril-hydrochlorothiazide 1 tab PO DAILY 11/20/17 01/22/20 allopurinol 300 mg PO DAILY 02/12/18 01/22/20 chlorthalidone 25 mg PO DAILY 02/12/18 09/27/19 cyanocobalamin (vitamin B-12) 1,000 mcg PO DAILY 09/21/18 09/27/19 1,000 mcg capsule guaifenesin 100 mg/5 mL oral liquid 200 mg PO Q6H PRN 09/21/18 09/27/19 lorazepam 0.5 mg tablet 0.5 mg PO BEDTIME PRN 09/21/18 09/27/19 metoprolol tartrate 25 mg tablet 12.5 mg PO BID 09/21/18 09/27/19 rosuvastatin 10 mg tablet 10 mg PO DAILY 09/21/18 01/22/20 sertraline 50 mg tablet 50 mg PO DAILY 09/21/18 01/22/20 Previous Rx's Medication Instructions Recorded hydrocodone-acetaminophen 1 tab PO Q4-6H PRN #14 tab 11/20/17 cyclobenzaprine 5 mg PO TID PRN #15 tab 05/15/19 naproxen [Naprosyn] 500 mg PO BID PRN #20 tab 05/15/19 Allergies Allergy/AdvReac Type Severity Reaction Status Date / Time No Known Drug Allergies Allergy Verified 09/27/19 11:35 Review of Systems <Keerthi Barron DO - Last Filed: 01/27/20 07:28> Review of Systems ROS Unobtainable: All systems reviewed & are unremarkable except as noted in HPI and below Patient History <Keerthi Barron DO - Last Filed: 01/27/20 07:28> Medical History (Updated 01/22/20 @ 14:53 by Keerthi Barron DO) Allergic rhinitis Arachnoid cyst B12 deficiency Cellulitis Chronic kidney disease Degenerative cervical disc DVT (deep venous thrombosis) Gouty arthropathy Hearing loss Hypertension Osteoarthritis Peptic ulcer disease Prostate cancer Vertigo Surgical History History of knee replacement Hx of appendectomy Hx of laminectomy Hx of radical prostatectomy Hx of rotator cuff surgery Hx of thumb surgery No pertinent past surgical history Social History Smoking Status: Former smoker Smoking Status: Former smoker alcohol intake frequency: holidays/special occasions only Substance Use Type: does not use Exam <Keerthi Barron DO - Last Filed: 01/27/20 07:28> Narrative Exam Narrative: GEN: well nourished, well appearing male, alert and oriented x 3, patient appears to be in mild distress. HEENT: Atraumatic, pupils are equal round reactive to light, extraocular movements are intact, nares are clear, TMs are clear with no fluid, there is no conjunctival pallor. Throat is clear without any exudates, erythema, tonsillar enlargement or uvular deviation, no facial droop. HEART: Regular rate and rhythm without murmur, clicks, rubs. No carotid bruits, pulses are equal in upper and lower extremities LUNGS:Lungs clear to auscultation, no wheezes, rales, crackles, chest moves symmetrically ABD:bowel sounds normal, soft, non-tender, no guarding, rebound, rigidity, no masses noted, no hepatosplenomegaly :No CVA tenderness MSCL: Non-tender, no muscle atrophy, muscles strength 5/5 upper and lower extremities, full range of motion. Gait tested with walker and patient ambulates without issue. NEURO:CN 2-12 intact, sensation normal, reflexes 2/4 upper and lower extremities. finger nose finger test normal, heel jenkins test normal Initial Vital Signs Initial Vital Signs: Vital Signs Pulse Rate 63 01/22/20 11:02 Pulse Oximetry 98 01/22/20 11:02 <Caridad Delaney, DO - Last Filed: 01/24/20 18:43> Initial Vital Signs Initial Vital Signs: Vital Signs Pulse Rate 63 01/22/20 11:02 Pulse Oximetry 98 01/22/20 11:02 <King Rodriguez, DO - Last Filed: 01/23/20 14:56> Initial Vital Signs Initial Vital Signs: Vital Signs Pulse Rate 63 01/22/20 11:02 Pulse Oximetry 98 01/22/20 11:02 Scores <Keerthi Barron, DO - Last Filed: 01/27/20 07:28> GCS Castell coma scale eye opening: Spontaneous Delia coma scale verbal response: Orientated Castell coma scale motor response: Obey commands Castell coma scale total score: 15 Course <Keerthi Barron, DO - Last Filed: 01/27/20 07:28> Orders Ordered: Discontinued Medications Hydrocodone Bitart/Acetaminophen (Hydrocodone/Acet 5/325 Tablet) 1 tab PO NOW ONE Stop: 01/23/20 01:50 Last Admin: 01/23/20 01:55 Dose: 1 tab Documented by: SARINA Ketorolac Tromethamine (Ketorolac 60 Mg/2 Ml Vial) 30 mg IV NOW ONE Stop: 01/22/20 21:43 Last Admin: 01/22/20 22:23 Dose: Not Given Documented by: MARIE Tramadol HCl (Tramadol 50 Mg Tablet) 50 mg PO NOW ONE Stop: 01/22/20 21:43 Last Admin: 01/22/20 22:23 Dose: Not Given Documented by: MARIE Vital Signs Vital signs: Vital Signs - 8 hr 01/22/20 18:00 01/22/20 18:15 01/22/20 18:30 Pulse Rate 74 72 70 Respiratory Rate 18 21 21 Blood Pressure 135/89 145/85 H 145/83 H Pulse Oximetry 95 95 94 01/22/20 18:45 01/22/20 19:00 01/22/20 19:15 Pulse Rate 65 62 65 Respiratory Rate 20 20 20 Blood Pressure 134/80 143/86 H 153/87 H Pulse Oximetry 94 95 96 01/22/20 19:30 01/22/20 19:45 01/22/20 20:00 Pulse Rate 64 59 L 57 L Respiratory Rate 19 16 19 Blood Pressure 155/90 H 137/81 162/89 H Pulse Oximetry 96 95 95 01/22/20 20:15 01/22/20 20:30 01/22/20 20:45 Pulse Rate 57 L 56 L 56 L Respiratory Rate 17 21 18 Blood Pressure 157/91 H 160/90 H 171/94 H Pulse Oximetry 96 94 96 01/22/20 21:00 01/22/20 21:01 01/22/20 21:15 Pulse Rate 62 60 56 L Respiratory Rate 24 20 23 Blood Pressure 157/103 H 167/103 H Pulse Oximetry 98 96 97 01/22/20 21:30 01/22/20 21:46 01/22/20 22:00 Pulse Rate 56 L 56 L 54 L Respiratory Rate 24 16 17 Blood Pressure 164/96 H 154/98 H 174/99 H Pulse Oximetry 96 97 96 01/22/20 22:16 Pulse Rate 53 L Respiratory Rate 17 Blood Pressure 168/103 H Pulse Oximetry 96 <Caridad Delaney, - Last Filed: 01/24/20 18:43> Orders Ordered: Discontinued Medications Hydrocodone Bitart/Acetaminophen (Hydrocodone/Acet 5/325 Tablet) 1 tab PO NOW ONE Stop: 01/23/20 01:50 Last Admin: 01/23/20 01:55 Dose: 1 tab Documented by: SARINA Ketorolac Tromethamine (Ketorolac 60 Mg/2 Ml Vial) 30 mg IV NOW ONE Stop: 01/22/20 21:43 Last Admin: 01/22/20 22:23 Dose: Not Given Documented by: MARIE Tramadol HCl (Tramadol 50 Mg Tablet) 50 mg PO NOW ONE Stop: 01/22/20 21:43 Last Admin: 01/22/20 22:23 Dose: Not Given Documented by: MARIE Vital Signs Vital signs: Vital Signs - 8 hr 01/22/20 18:00 01/22/20 18:15 01/22/20 18:30 Pulse Rate 74 72 70 Respiratory Rate 18 21 21 Blood Pressure 135/89 145/85 H 145/83 H Pulse Oximetry 95 95 94 01/22/20 18:45 01/22/20 19:00 01/22/20 19:15 Pulse Rate 65 62 65 Respiratory Rate 20 20 20 Blood Pressure 134/80 143/86 H 153/87 H Pulse Oximetry 94 95 96 01/22/20 19:30 01/22/20 19:45 01/22/20 20:00 Pulse Rate 64 59 L 57 L Respiratory Rate 19 16 19 Blood Pressure 155/90 H 137/81 162/89 H Pulse Oximetry 96 95 95 01/22/20 20:15 01/22/20 20:30 01/22/20 20:45 Pulse Rate 57 L 56 L 56 L Respiratory Rate 17 21 18 Blood Pressure 157/91 H 160/90 H 171/94 H Pulse Oximetry 96 94 96 01/22/20 21:00 01/22/20 21:01 01/22/20 21:15 Pulse Rate 62 60 56 L Respiratory Rate 24 20 23 Blood Pressure 157/103 H 167/103 H Pulse Oximetry 98 96 97 01/22/20 21:30 01/22/20 21:46 01/22/20 22:00 Pulse Rate 56 L 56 L 54 L Respiratory Rate 24 16 17 Blood Pressure 164/96 H 154/98 H 174/99 H Pulse Oximetry 96 97 96 01/22/20 22:16 Pulse Rate 53 L Respiratory Rate 17 Blood Pressure 168/103 H Pulse Oximetry 96 <King Rodriguez, - Last Filed: 01/23/20 14:56> Orders Ordered: Discontinued Medications Hydrocodone Bitart/Acetaminophen (Hydrocodone/Acet 5/325 Tablet) 1 tab PO NOW ONE Stop: 01/23/20 01:50 Last Admin: 01/23/20 01:55 Dose: 1 tab Documented by: SARINA Ketorolac Tromethamine (Ketorolac 60 Mg/2 Ml Vial) 30 mg IV NOW ONE Stop: 01/22/20 21:43 Last Admin: 01/22/20 22:23 Dose: Not Given Documented by: MARIE Tramadol HCl (Tramadol 50 Mg Tablet) 50 mg PO NOW ONE Stop: 01/22/20 21:43 Last Admin: 01/22/20 22:23 Dose: Not Given Documented by: MARIE Vital Signs Vital signs: Vital Signs - 8 hr 01/22/20 18:00 01/22/20 18:15 01/22/20 18:30 Pulse Rate 74 72 70 Respiratory Rate 18 21 21 Blood Pressure 135/89 145/85 H 145/83 H Pulse Oximetry 95 95 94 01/22/20 18:45 01/22/20 19:00 01/22/20 19:15 Pulse Rate 65 62 65 Respiratory Rate 20 20 20 Blood Pressure 134/80 143/86 H 153/87 H Pulse Oximetry 94 95 96 01/22/20 19:30 01/22/20 19:45 01/22/20 20:00 Pulse Rate 64 59 L 57 L Respiratory Rate 19 16 19 Blood Pressure 155/90 H 137/81 162/89 H Pulse Oximetry 96 95 95 01/22/20 20:15 01/22/20 20:30 01/22/20 20:45 Pulse Rate 57 L 56 L 56 L Respiratory Rate 17 21 18 Blood Pressure 157/91 H 160/90 H 171/94 H Pulse Oximetry 96 94 96 01/22/20 21:00 01/22/20 21:01 01/22/20 21:15 Pulse Rate 62 60 56 L Respiratory Rate 24 20 23 Blood Pressure 157/103 H 167/103 H Pulse Oximetry 98 96 97 01/22/20 21:30 01/22/20 21:46 01/22/20 22:00 Pulse Rate 56 L 56 L 54 L Respiratory Rate 24 16 17 Blood Pressure 164/96 H 154/98 H 174/99 H Pulse Oximetry 96 97 96 01/22/20 22:16 Pulse Rate 53 L Respiratory Rate 17 Blood Pressure 168/103 H Pulse Oximetry 96 MDM - Fall <Keerthi Barron DO - Last Filed: 01/27/20 07:28> Lab Data Attestation: I reviewed the patient's lab results. Lab results narrative: CBC shows platelets are low 129, sodium is 136 with BUN of 24 and glucose is 147 with normal renal function and other electrolytes being in normal range. Troponin is negative, urine is negative. Result diagrams: 01/22/20 11:05 01/22/20 11:05 Labs: Lab Results 01/22/20 01/22/20 01/22/20 Range/Units 11:05 11:05 11:05 WBC 5.6 (4.5-11.0) X10^3/uL RBC 5.11 (4.5-5.9) X10^6/uL Hgb 14.6 (13.5-17.5) g/dL Hct 43.9 (41-53) % MCV 86.0 (80-100) fL MCH 28.5 (26-34) PG MCHC 33.2 (30-36) % RDW 13.8 (11.6-14.8) % Plt Count 129 L (150-400) X10^3/uL Neut % (Auto) 69.6 (50-75) % Lymph % (Auto) 19.2 L (25-40) % [place] % (Auto) 8.4 (3-14) % Eos % (Auto) 2.3 (2-4) % Baso % (Auto) 0.5 (0-2) % Neut # (Auto) 3900 (0397-2173) /uL Lymph # (Auto) 1100 (1004-6387) /uL [place] # (Auto) 500 (0-900) /uL Eos # (Auto) 100 (0-450) /uL Baso # (Auto) 0 (0-100) /uL PT 11.3 (10.1-12.7) SECONDS INR 1.0 (0.9-1.3) APTT 31 D (26.4-36.2) SECONDS Sodium 136 L (137-145) mmol/L Potassium 4.1 (3.4-5.1) mmol/L Chloride 103 (98-107) mmol/L Carbon Dioxide 25 (22-32) mmol/L BUN 24 H (9-20) mg/dL Creatinine 1.15 (0.66-1.25) mg/dL Estimated GFR > 60.0 (>60) mL/min BUN/Creatinine Ratio 20.9 (6-22) Glucose 147 H (80-110) mg/dL Calcium 9.3 (8.4-10.2) mg/dL Total Bilirubin 0.8 (0.2-1.3) mg/dL AST 23 (17-59) IU/L ALT 23 (<50) IU/L Alkaline Phosphatase 83 (38-126) U/L Total Creatine Kinase 54 L (55-170) U/L CK-MB (CK-2) TNP CK-MB (CK-2) Rel Index TNP Troponin I < 0.012 (0.01-0.034) ng/mL Total Protein 7.1 (6.3-8.2) g/dL Albumin 4.3 (3.5-5.0) g/dL Globulin 2.8 (1.7-4.1) g/dL Albumin/Globulin Ratio 1.5 (1.0-2.8) Urine Color Urine Appearance Urine pH (4.5-8.0) Ur Specific [place] (1.000-1.035) Urine Protein (Negative) Urine Glucose (UA) (Negative) g/dL Urine Ketones (NEGATIVE) Urine Occult Blood (Negative) Urine Nitrate (Negative) Urine Bilirubin (NEGATIVE) Urine Urobilinogen (0.2) E.U./dL Ur Leukocyte Esterase (NEGATIVE) Urine RBC (0-5/HPF) Urine WBC (0-5/HPF) Ur Squamous Epith Cells (0-5/HPF) Urine Bacteria (None) Ur Culture Indicated? U Opiates 300ng/mL cut (Negative) Ur Oxycodone Screen (Negative) Urine Methadone Screen (Negative) Ur Barbiturates Screen (Negative) U Tricyclic Antidepress (Negative) Ur Phencyclidine Scrn (Negative) Ur Amphetamines Screen (Negative) U Methamphetamines Scrn (Negative) Ur MDMA Scrn (Ecstasy) (Negative) U Benzodiazepines Scrn (Negative) Urine Cocaine Screen (Negative) U Marijuana (THC) Screen (Negative) COVID-19 PCR (Negative) 01/22/20 01/22/20 01/22/20 Range/Units 13:49 13:49 17:36 WBC (4.5-11.0) X10^3/uL RBC (4.5-5.9) X10^6/uL Hgb (13.5-17.5) g/dL Hct (41-53) % MCV (80-100) fL MCH (26-34) PG MCHC (30-36) % RDW (11.6-14.8) % Plt Count (150-400) X10^3/uL Neut % (Auto) (50-75) % Lymph % (Auto) (25-40) % [place] % (Auto) (3-14) % Eos % (Auto) (2-4) % Baso % (Auto) (0-2) % Neut # (Auto) (1229-3132) /uL Lymph # (Auto) (9911-5700) /uL [place] # (Auto) (0-900) /uL Eos # (Auto) (0-450) /uL Baso # (Auto) (0-100) /uL PT (10.1-12.7) SECONDS INR (0.9-1.3) APTT (26.4-36.2) SECONDS Sodium (137-145) mmol/L Potassium (3.4-5.1) mmol/L Chloride (98-107) mmol/L Carbon Dioxide (22-32) mmol/L BUN (9-20) mg/dL Creatinine (0.66-1.25) mg/dL Estimated GFR (>60) mL/min BUN/Creatinine Ratio (6-22) Glucose (80-110) mg/dL Calcium (8.4-10.2) mg/dL Total Bilirubin (0.2-1.3) mg/dL AST (17-59) IU/L ALT (<50) IU/L Alkaline Phosphatase (38-126) U/L Total Creatine Kinase (55-170) U/L CK-MB (CK-2) CK-MB (CK-2) Rel Index Troponin I (0.01-0.034) ng/mL Total Protein (6.3-8.2) g/dL Albumin (3.5-5.0) g/dL Globulin (1.7-4.1) g/dL Albumin/Globulin Ratio (1.0-2.8) Urine Color Yellow Urine Appearance Clear Urine pH 7.0 (4.5-8.0) Ur Specific [place] 1.010 (1.000-1.035) Urine Protein Negative (Negative) Urine Glucose (UA) Negative (Negative) g/dL Urine Ketones Negative (NEGATIVE) Urine Occult Blood Negative (Negative) Urine Nitrate Negative (Negative) Urine Bilirubin Negative (NEGATIVE) Urine Urobilinogen 0.2 (0.2) E.U./dL Ur Leukocyte Esterase Negative (NEGATIVE) Urine RBC None seen (0-5/HPF) Urine WBC None seen (0-5/HPF) Ur Squamous Epith Cells 0-1 /hpf (0-5/HPF) Urine Bacteria None seen (None) Ur Culture Indicated? Cult not indicated U Opiates 300ng/mL cut Negative (Negative) Ur Oxycodone Screen Negative (Negative) Urine Methadone Screen Negative (Negative) Ur Barbiturates Screen Negative (Negative) U Tricyclic Antidepress Negative (Negative) Ur Phencyclidine Scrn Negative (Negative) Ur Amphetamines Screen Negative (Negative) U Methamphetamines Scrn Negative (Negative) Ur MDMA Scrn (Ecstasy) Negative (Negative) U Benzodiazepines Scrn Negative (Negative) Urine Cocaine Screen Negative (Negative) U Marijuana (THC) Screen Negative (Negative) COVID-19 PCR Negative (Negative) Imaging Data CT scan - head: Radiologist's Impression: [address] [id number] Scan ReportSigned Patient: Esvin Coombs MMR#: [id number]: [id number]:[id number]/Sex: 84 / MDate of Service: 01/22/20Loc: EDAccession Number: [id number] Procedure: CT head/brain wo con Ordering Provider: Keerthi Barron D.O. PROCEDURE: CT HEAD/BRAIN WO CON INDICATIONS: fall TECHNIQUE: Noncontrast 4.5 mm thick angled axial sections acquired from the foramen magnum to the vertex, with coronal and sagittal reformats. For radiation dose reduction, the following was used: automated exposure control, adjustment of mA and/or kV according to patient size. COMPARISON: [facility], CT, CT HEAD WITHOUT CONTRAST, 01/13/2018, 17:12. [facility], CT, CT HEAD/BRAIN WO CON, 05/15/2019, 17:11. [facility], CR, XR CHEST 1V, 01/22/2020, 11:39. [facility], CT, CT CERVICAL SPINE WO CON, 01/22/2020, 11:35. [facility], CT, CT HEAD/BRAIN WO CON, 09/27/2019, 11:07. FINDINGS: Image quality: Excellent. CSF spaces: Basal cisterns are patent. No extra-axial fluid collections. The ventricles are symmetric in size and shape. Brain: No intracranial bleeds or masses. There is cerebral volume loss for age, with resultant ventricular and sulcal prominence. There are periventricular and deep white matter chronic small vessel ischemic changes. There is intracranial internal carotid artery atherosclerosis. Skull and face: Calvarium and visualized facial bones appear intact, without suspicious lesions. Remote nasal bone fractures are seen. Sinuses: There is new near complete opacification of the right frontal sinuses. Visualized sinuses and mastoids are otherwise clear. IMPRESSION: No acute intracranial hemorrhage is seen. No acute intracranial process is seen. Prominent right frontal sinus opacification again seen. Note is made of age-appropriate brain parenchymal volume loss and chronic small vessel ischemic changes. Dictated by: Luis Carlos Soni M.D. on 01/22/2020 at 11:18 Approved by: Luis Carlos Soni M.D. on 01/22/2020 at 11:20 CT - cervical spine: Radiologist's Impression: [address] Scan ReportSigned Patient: Esvin Coombs [facility]#: [id number]: 1936cct:[id number]/Sex: 84 / MDate of Service: 01/22/20Loc: EDAccession Number: [id number] Procedure: CT cervical spine wo con Ordering Provider: Keerthi Barron D.O. PROCEDURE: CT CERVICAL SPINE WO CON INDICATIONS: fall from standing, neck pain TECHNIQUE: Noncontrast 3 mm thick sections acquired from the skull base to the T4 level. Sagittal and coronal reformats were then constructed. For radiation dose reduction, the following was used: automated exposure control, adjustment of mA and/or kV according to patient size. COMPARISON: [facility], CR, XR CHEST 1V, 01/22/2020, 11:39. [facility], CT, CT HEAD/BRAIN WO CON, 01/22/2020, 11:35. [facility], CT, CT CERVICAL SPINE WO CON, 09/27/2019, 11:07. FINDINGS: Image quality: Excellent. Bones: No fractures or dislocations. Visualized superior ribs are intact. There is severe disc space narrowing seen at C3-C4 and C5-C6, with at least moderate disc space narrowing at C4-C5 and C6-C7. Endplate irregularity and sclerosis are seen, which are most prominent at C5-C6. Focal degenerative change can also be seen involving the C1-C2 interface anteriorly. Mild grade 1 anterolisthesis is seen at C4-C5. Postoperative changes are seen, with removal of portions of the posterior elements inferiorly. Soft tissues: Prevertebral soft tissues are normal in thickness. No paravertebral hematomas. No apical pneumothoraces. There is a calcified left thyroid lesion again seen. IMPRESSION: No acute fractures are seen. Prominent degenerative changes are seen. Prior postoperative change, with removal of portions of the posterior elements inferiorly. Dictated by: Luis Carlos Soni M.D. on 01/22/2020 at 11:20 Approved by: Luis Carlos Soni M.D. on 01/22/2020 at 11:23 Chest x-ray: Radiologist's Impression: [address] [id number] ReportSigned Patient: Esvin Coombs [facility]#: [id number]: [id number]:[id number]/Sex: 84 / MDate of Service: 01/22/20Loc: EDAccession Number: [id number] Procedure: XR chest 1V Ordering Provider: Keerthi Barron D.O. PROCEDURE: XR CHEST 1V INDICATIONS: Possible stroke TECHNIQUE: One view of the chest was acquired. COMPARISON: [facility], CR, XR CHEST 2V, 02/03/2018, 15:13. [facility], CT, CT CHEST WO CON, 05/15/2019, 17:11. [facility], CT, CT CERVICAL SPINE WO CON, 01/22/2020, 11:35. [facility], CT, CT HEAD/BRAIN WO CON, 01/22/2020, 11:35. [facility], CR, XR CHEST 2V, 09/27/2019, 11:05. FINDINGS: Surgical changes and devices: None. Lungs and pleura: On this semiupright portable chest examination, no large pneumothorax or large pleural effusions are seen. No focal infiltrates are seen. Mediastinum: The cardiac contours are within normal limits. The aorta demonstrates calcification and tortuosity. Bones and chest wall: No suspicious bony lesions. Age-appropriate bony degenerative changes are seen. Overlying soft tissues appear unremarkable. IMPRESSION: Unremarkable portable chest for age. Dictated by: Luis Carlos Soni M.D. on 01/22/2020 at 11:14 Approved by: Luis Carlos Soni M.D. on 01/22/2020 at 11:17 ECG Data Attestation: I personally reviewed and interpreted this ECG as follows: Prior ECG tracings: available for review Interpretation: Sinus bradycardia with a right bundle branch block, rate of 58, P are interval of 182, QRS of 166 and QTC of 461. No new ST elevation or depression is appreciated, patient's prior EKG from 05/15/2027 appears similar to today's MDM Narrative Medical decision making narrative: Patient comes in with ground level fall and after hitting his head. Patient states that he felt slower afterwards and was brought to the emergency department. He had been able to get himself off the floor had called this morning. His labs do not show major abnormalities, platelets are consistently low. Urine is negative. Patient has no clear new neurologic insult, cardiac or pulmonary causes of his fall today. He passed his ambulation trial in the emergency department without issue and plan to send with a walker as he normally just uses a cane. During patient's evaluation with the nurses he did admit to suicidal thoughts, he does have a plan he does not currently have specific intent because he cares for his dog who lives with him but states that he clearly thinks about it regularly. Patient was able to safety contract but when asked if he would like to have social work reach out to him versus staying overnight for evaluation and assistance in the am he prefers to stay overnight. Patient medically cleared and signed out to Dr. Delaney. <Caridad Delaney, - Last Filed: 01/24/20 18:43> Lab Data Labs: Lab Results 01/22/20 01/22/20 01/22/20 Range/Units 11:05 11:05 11:05 WBC 5.6 (4.5-11.0) X10^3/uL RBC 5.11 (4.5-5.9) X10^6/uL Hgb 14.6 (13.5-17.5) g/dL Hct 43.9 (41-53) % MCV 86.0 (80-100) fL MCH 28.5 (26-34) PG MCHC 33.2 (30-36) % RDW 13.8 (11.6-14.8) % Plt Count 129 L (150-400) X10^3/uL Neut % (Auto) 69.6 (50-75) % Lymph % (Auto) 19.2 L (25-40) % [place] % (Auto) 8.4 (3-14) % Eos % (Auto) 2.3 (2-4) % Baso % (Auto) 0.5 (0-2) % Neut # (Auto) 3900 (5578-4667) /uL Lymph # (Auto) 1100 (0576-1201) /uL [place] # (Auto) 500 (0-900) /uL Eos # (Auto) 100 (0-450) /uL Baso # (Auto) 0 (0-100) /uL PT 11.3 (10.1-12.7) SECONDS INR 1.0 (0.9-1.3) APTT 31 D (26.4-36.2) SECONDS Sodium 136 L (137-145) mmol/L Potassium 4.1 (3.4-5.1) mmol/L Chloride 103 (98-107) mmol/L Carbon Dioxide 25 (22-32) mmol/L BUN 24 H (9-20) mg/dL Creatinine 1.15 (0.66-1.25) mg/dL Estimated GFR > 60.0 (>60) mL/min BUN/Creatinine Ratio 20.9 (6-22) Glucose 147 H (80-110) mg/dL Calcium 9.3 (8.4-10.2) mg/dL Total Bilirubin 0.8 (0.2-1.3) mg/dL AST 23 (17-59) IU/L ALT 23 (<50) IU/L Alkaline Phosphatase 83 (38-126) U/L Total Creatine Kinase 54 L (55-170) U/L CK-MB (CK-2) TNP CK-MB (CK-2) Rel Index TNP Troponin I < 0.012 (0.01-0.034) ng/mL Total Protein 7.1 (6.3-8.2) g/dL Albumin 4.3 (3.5-5.0) g/dL Globulin 2.8 (1.7-4.1) g/dL Albumin/Globulin Ratio 1.5 (1.0-2.8) Urine Color Urine Appearance Urine pH (4.5-8.0) Ur Specific [place] (1.000-1.035) Urine Protein (Negative) Urine Glucose (UA) (Negative) g/dL Urine Ketones (NEGATIVE) Urine Occult Blood (Negative) Urine Nitrate (Negative) Urine Bilirubin (NEGATIVE) Urine Urobilinogen (0.2) E.U./dL Ur Leukocyte Esterase (NEGATIVE) Urine RBC (0-5/HPF) Urine WBC (0-5/HPF) Ur Squamous Epith Cells (0-5/HPF) Urine Bacteria (None) Ur Culture Indicated? U Opiates 300ng/mL cut (Negative) Ur Oxycodone Screen (Negative) Urine Methadone Screen (Negative) Ur Barbiturates Screen (Negative) U Tricyclic Antidepress (Negative) Ur Phencyclidine Scrn (Negative) Ur Amphetamines Screen (Negative) U Methamphetamines Scrn (Negative) Ur MDMA Scrn (Ecstasy) (Negative) U Benzodiazepines Scrn (Negative) Urine Cocaine Screen (Negative) U Marijuana (THC) Screen (Negative) COVID-19 PCR (Negative) 01/22/20 01/22/20 01/22/20 Range/Units 13:49 13:49 17:36 WBC (4.5-11.0) X10^3/uL RBC (4.5-5.9) X10^6/uL Hgb (13.5-17.5) g/dL Hct (41-53) % MCV (80-100) fL MCH (26-34) PG MCHC (30-36) % RDW (11.6-14.8) % Plt Count (150-400) X10^3/uL Neut % (Auto) (50-75) % Lymph % (Auto) (25-40) % [place] % (Auto) (3-14) % Eos % (Auto) (2-4) % Baso % (Auto) (0-2) % Neut # (Auto) (9231-8824) /uL Lymph # (Auto) (7808-5627) /uL [place] # (Auto) (0-900) /uL Eos # (Auto) (0-450) /uL Baso # (Auto) (0-100) /uL PT (10.1-12.7) SECONDS INR (0.9-1.3) APTT (26.4-36.2) SECONDS Sodium (137-145) mmol/L Potassium (3.4-5.1) mmol/L Chloride (98-107) mmol/L Carbon Dioxide (22-32) mmol/L BUN (9-20) mg/dL Creatinine (0.66-1.25) mg/dL Estimated GFR (>60) mL/min BUN/Creatinine Ratio (6-22) Glucose (80-110) mg/dL Calcium (8.4-10.2) mg/dL Total Bilirubin (0.2-1.3) mg/dL AST (17-59) IU/L ALT (<50) IU/L Alkaline Phosphatase (38-126) U/L Total Creatine Kinase (55-170) U/L CK-MB (CK-2) CK-MB (CK-2) Rel Index Troponin I (0.01-0.034) ng/mL Total Protein (6.3-8.2) g/dL Albumin (3.5-5.0) g/dL Globulin (1.7-4.1) g/dL Albumin/Globulin Ratio (1.0-2.8) Urine Color Yellow Urine Appearance Clear Urine pH 7.0 (4.5-8.0) Ur Specific [place] 1.010 (1.000-1.035) Urine Protein Negative (Negative) Urine Glucose (UA) Negative (Negative) g/dL Urine Ketones Negative (NEGATIVE) Urine Occult Blood Negative (Negative) Urine Nitrate Negative (Negative) Urine Bilirubin Negative (NEGATIVE) Urine Urobilinogen 0.2 (0.2) E.U./dL Ur Leukocyte Esterase Negative (NEGATIVE) Urine RBC None seen (0-5/HPF) Urine WBC None seen (0-5/HPF) Ur Squamous Epith Cells 0-1 /hpf (0-5/HPF) Urine Bacteria None seen (None) Ur Culture Indicated? Cult not indicated U Opiates 300ng/mL cut Negative (Negative) Ur Oxycodone Screen Negative (Negative) Urine Methadone Screen Negative (Negative) Ur Barbiturates Screen Negative (Negative) U Tricyclic Antidepress Negative (Negative) Ur Phencyclidine Scrn Negative (Negative) Ur Amphetamines Screen Negative (Negative) U Methamphetamines Scrn Negative (Negative) Ur MDMA Scrn (Ecstasy) Negative (Negative) U Benzodiazepines Scrn Negative (Negative) Urine Cocaine Screen Negative (Negative) U Marijuana (THC) Screen Negative (Negative) COVID-19 PCR Negative (Negative) MDM Narrative Medical decision making narrative: Patient signed out to me by Dr. Barron I have seen and evaluated him myself. Now complaining of neck and back pain after being in bed for a long time. Med rec does show he is on [place] he is given another dose of [place] and hospital bed is ordered. Awaiting for CATTLE DRIVER consultation. <King Rodriguez, - Last Filed: 01/23/20 14:56> Lab Data Labs: Lab Results 01/22/20 01/22/20 01/22/20 Range/Units 11:05 11:05 11:05 WBC 5.6 (4.5-11.0) X10^3/uL RBC 5.11 (4.5-5.9) X10^6/uL Hgb 14.6 (13.5-17.5) g/dL Hct 43.9 (41-53) % MCV 86.0 (80-100) fL MCH 28.5 (26-34) PG MCHC 33.2 (30-36) % RDW 13.8 (11.6-14.8) % Plt Count 129 L (150-400) X10^3/uL Neut % (Auto) 69.6 (50-75) % Lymph % (Auto) 19.2 L (25-40) % [place] % (Auto) 8.4 (3-14) % Eos % (Auto) 2.3 (2-4) % Baso % (Auto) 0.5 (0-2) % Neut # (Auto) 3900 (6661-6084) /uL Lymph # (Auto) 1100 (4837-1602) /uL [place] # (Auto) 500 (0-900) /uL Eos # (Auto) 100 (0-450) /uL Baso # (Auto) 0 (0-100) /uL PT 11.3 (10.1-12.7) SECONDS INR 1.0 (0.9-1.3) APTT 31 D (26.4-36.2) SECONDS Sodium 136 L (137-145) mmol/L Potassium 4.1 (3.4-5.1) mmol/L Chloride 103 (98-107) mmol/L Carbon Dioxide 25 (22-32) mmol/L BUN 24 H (9-20) mg/dL Creatinine 1.15 (0.66-1.25) mg/dL Estimated GFR > 60.0 (>60) mL/min BUN/Creatinine Ratio 20.9 (6-22) Glucose 147 H (80-110) mg/dL Calcium 9.3 (8.4-10.2) mg/dL Total Bilirubin 0.8 (0.2-1.3) mg/dL AST 23 (17-59) IU/L ALT 23 (<50) IU/L Alkaline Phosphatase 83 (38-126) U/L Total Creatine Kinase 54 L (55-170) U/L CK-MB (CK-2) TNP CK-MB (CK-2) Rel Index TNP Troponin I < 0.012 (0.01-0.034) ng/mL Total Protein 7.1 (6.3-8.2) g/dL Albumin 4.3 (3.5-5.0) g/dL Globulin 2.8 (1.7-4.1) g/dL Albumin/Globulin Ratio 1.5 (1.0-2.8) Urine Color Urine Appearance Urine pH (4.5-8.0) Ur Specific [place] (1.000-1.035) Urine Protein (Negative) Urine Glucose (UA) (Negative) g/dL Urine Ketones (NEGATIVE) Urine Occult Blood (Negative) Urine Nitrate (Negative) Urine Bilirubin (NEGATIVE) Urine Urobilinogen (0.2) E.U./dL Ur Leukocyte Esterase (NEGATIVE) Urine RBC (0-5/HPF) Urine WBC (0-5/HPF) Ur Squamous Epith Cells (0-5/HPF) Urine Bacteria (None) Ur Culture Indicated? U Opiates 300ng/mL cut (Negative) Ur Oxycodone Screen (Negative) Urine Methadone Screen (Negative) Ur Barbiturates Screen (Negative) U Tricyclic Antidepress (Negative) Ur Phencyclidine Scrn (Negative) Ur Amphetamines Screen (Negative) U Methamphetamines Scrn (Negative) Ur MDMA Scrn (Ecstasy) (Negative) U Benzodiazepines Scrn (Negative) Urine Cocaine Screen (Negative) U Marijuana (THC) Screen (Negative) COVID-19 PCR (Negative) 01/22/20 01/22/20 01/22/20 Range/Units 13:49 13:49 17:36 WBC (4.5-11.0) X10^3/uL RBC (4.5-5.9) X10^6/uL Hgb (13.5-17.5) g/dL Hct (41-53) % MCV (80-100) fL MCH (26-34) PG MCHC (30-36) % RDW (11.6-14.8) % Plt Count (150-400) X10^3/uL Neut % (Auto) (50-75) % Lymph % (Auto) (25-40) % [place] % (Auto) (3-14) % Eos % (Auto) (2-4) % Baso % (Auto) (0-2) % Neut # (Auto) (5923-3149) /uL Lymph # (Auto) (7602-6384) /uL [place] # (Auto) (0-900) /uL Eos # (Auto) (0-450) /uL Baso # (Auto) (0-100) /uL PT (10.1-12.7) SECONDS INR (0.9-1.3) APTT (26.4-36.2) SECONDS Sodium (137-145) mmol/L Potassium (3.4-5.1) mmol/L Chloride (98-107) mmol/L Carbon Dioxide (22-32) mmol/L BUN (9-20) mg/dL Creatinine (0.66-1.25) mg/dL Estimated GFR (>60) mL/min BUN/Creatinine Ratio (6-22) Glucose (80-110) mg/dL Calcium (8.4-10.2) mg/dL Total Bilirubin (0.2-1.3) mg/dL AST (17-59) IU/L ALT (<50) IU/L Alkaline Phosphatase (38-126) U/L Total Creatine Kinase (55-170) U/L CK-MB (CK-2) CK-MB (CK-2) Rel Index Troponin I (0.01-0.034) ng/mL Total Protein (6.3-8.2) g/dL Albumin (3.5-5.0) g/dL Globulin (1.7-4.1) g/dL Albumin/Globulin Ratio (1.0-2.8) Urine Color Yellow Urine Appearance Clear Urine pH 7.0 (4.5-8.0) Ur Specific [place] 1.010 (1.000-1.035) Urine Protein Negative (Negative) Urine Glucose (UA) Negative (Negative) g/dL Urine Ketones Negative (NEGATIVE) Urine Occult Blood Negative (Negative) Urine Nitrate Negative (Negative) Urine Bilirubin Negative (NEGATIVE) Urine Urobilinogen 0.2 (0.2) E.U./dL Ur Leukocyte Esterase Negative (NEGATIVE) Urine RBC None seen (0-5/HPF) Urine WBC None seen (0-5/HPF) Ur Squamous Epith Cells 0-1 /hpf (0-5/HPF) Urine Bacteria None seen (None) Ur Culture Indicated? Cult not indicated U Opiates 300ng/mL cut Negative (Negative) Ur Oxycodone Screen Negative (Negative) Urine Methadone Screen Negative (Negative) Ur Barbiturates Screen Negative (Negative) U Tricyclic Antidepress Negative (Negative) Ur Phencyclidine Scrn Negative (Negative) Ur Amphetamines Screen Negative (Negative) U Methamphetamines Scrn Negative (Negative) Ur MDMA Scrn (Ecstasy) Negative (Negative) U Benzodiazepines Scrn Negative (Negative) Urine Cocaine Screen Negative (Negative) U Marijuana (THC) Screen Negative (Negative) COVID-19 PCR Negative (Negative) MDM Narrative Medical decision making narrative: Dr rodriguez: Received turned over from reviewed patient's labs and prior notes. Patient was evaluated by social work associate in the emergency department. Patient is no longer suicidal. Has had passive thoughts. Patient was given resources. He is safe to be discharged home. Discharge Plan Departure Patient Disposition: Home Clinical Impression: Fall, Thrombocytopenia Instructions: How to Prevent Falls Activity Restrictions/Additional Instructions: Follow-up with your physician in the next week. You may continue home medications as prescribed. I would recommend using a walker when moving about the house. One has been provided for you today. Return to the ER for fevers, new or worsening confusion, severe headaches, new chest pain, shortness of breath, lightheadedness or passing out, persistent vomiting, new weakness numbness or inability use or extremities or other new or concerning symptoms. Prescriptions: No Action cyanocobalamin (vitamin B-12) 1,000 mcg capsule 1,000 mcg PO DAILY RF: 0 guaifenesin 100 mg/5 mL liquid 200 mg PO Q6H PRN (Reason: Pain (Scale Score 1-3)) RF: 0 lorazepam 0.5 mg tablet 0.5 mg PO BEDTIME PRN (Reason: Anxiety) RF: 0 metoprolol tartrate 25 mg tablet 12.5 mg PO BID RF: 0 rosuvastatin 10 mg tablet 10 mg PO DAILY RF: 0 sertraline 50 mg tablet 50 mg PO DAILY RF: 0 lisinopril-hydrochlorothiazide 20-12.5 mg tablet 1 tab PO DAILY RF: 0 amlodipine 5 mg tablet 5 mg PO DAILY RF: 0 aspirin 81 mg Tablet,Delayed Release (Dr/Ec) 81 mg PO DAILY RF: 0 hydrocodone-acetaminophen 5-325 mg tablet 1 tab PO Q4-6H PRN (Reason: pain) Qty: 14 RF: 0 chlorthalidone 25 mg tablet 25 mg PO DAILY RF: 0 allopurinol 300 mg tablet 300 mg PO DAILY RF: 0 naproxen [Naprosyn] 500 mg tablet 500 mg PO BID PRN (Reason: pain) Qty: 20 RF: 0 cyclobenzaprine 5 mg tablet 5 mg PO TID PRN (Reason: muscle spasm) Qty: 15 RF: 0 Referrals: Duke Felix MD [Primary Care Provider] -
--- NOTE | 2020-01-22 11:28 | DI.CT.S_ITS ---
PROCEDURE: CT HEAD/BRAIN WO CON INDICATIONS: fall TECHNIQUE: Noncontrast 4.5 mm thick angled axial sections acquired from the foramen magnum to the vertex, with coronal and sagittal reformats. For radiation dose reduction, the following was used: automated exposure control, adjustment of mA and/or kV according to patient size. COMPARISON: [facility], CT, CT HEAD WITHOUT CONTRAST, 01/13/2018, 17:12. [facility], CT, CT HEAD/BRAIN WO CON, 05/15/2019, 17:11. [facility], CR, XR CHEST 1V, 01/22/2020, 11:39. [facility], CT, CT CERVICAL SPINE WO CON, 01/22/2020, 11:35. [facility], CT, CT HEAD/BRAIN WO CON, 09/27/2019, 11:07. FINDINGS: Image quality: Excellent. CSF spaces: Basal cisterns are patent. No extra-axial fluid collections. The ventricles are symmetric in size and shape. Brain: No intracranial bleeds or masses. There is cerebral volume loss for age, with resultant ventricular and sulcal prominence. There are periventricular and deep white matter chronic small vessel ischemic changes. There is intracranial internal carotid artery atherosclerosis. Skull and face: Calvarium and visualized facial bones appear intact, without suspicious lesions. Remote nasal bone fractures are seen. Sinuses: There is new near complete opacification of the right frontal sinuses. Visualized sinuses and mastoids are otherwise clear. IMPRESSION: No acute intracranial hemorrhage is seen. No acute intracranial process is seen. Prominent right frontal sinus opacification again seen. Note is made of age-appropriate brain parenchymal volume loss and chronic small vessel ischemic changes. Dictated by: Luis Carlos Soni M.D. on 01/22/2020 at 11:18 Approved by: Luis Carlos Soni M.D. on 01/22/2020 at 11:20
--- NOTE | 2020-01-22 11:28 | DI.RAD.S_ITS ---
PROCEDURE: XR CHEST 1V INDICATIONS: Possible stroke TECHNIQUE: One view of the chest was acquired. COMPARISON: [facility], CR, XR CHEST 2V, 02/03/2018, 15:13. [facility], CT, CT CHEST WO CON, 05/15/2019, 17:11. [facility], CT, CT CERVICAL SPINE WO CON, 01/22/2020, 11:35. [facility], CT, CT HEAD/BRAIN WO CON, 01/22/2020, 11:35. [facility], CR, XR CHEST 2V, 09/27/2019, 11:05. FINDINGS: Surgical changes and devices: None. Lungs and pleura: On this semiupright portable chest examination, no large pneumothorax or large pleural effusions are seen. No focal infiltrates are seen. Mediastinum: The cardiac contours are within normal limits. The aorta demonstrates calcification and tortuosity. Bones and chest wall: No suspicious bony lesions. Age-appropriate bony degenerative changes are seen. Overlying soft tissues appear unremarkable. IMPRESSION: Unremarkable portable chest for age. Dictated by: Luis Carlos Soni M.D. on 01/22/2020 at 11:14 Approved by: Luis Carlos Soni M.D. on 01/22/2020 at 11:17
--- NOTE | 2020-01-22 11:32 | PC.NURSE ---
Patient comes into the ED with history of multiple falls, this time he fell at 0200am. He hit his head on the top. There is no visible laceration, no bony prominence or deformity noted. Patient has no focal deficits noted. He does have point tenderness on his cervical spine. He was placed in the supine position and given a rigid c-collar. Provider notified.
[2020-01-22 11:35] LABS: Add Manual Diff / Slide Review NO; Basophils Absolute Auto 0 /uL (0-100); Basophils Percent Auto 0.5 % (0-2); Eosinophils Absolute Auto 100 /uL (0-450); Eosinophils Percent Auto 2.3 % (2-4); Hematocrit 43.9 % (41-53); Hemoglobin 14.6 g/dL (13.5-17.5); Lymphocytes Absolute Auto 1100 /uL (1100-4500); Lymphocytes Percent Auto 19.2 % (25-40); Mean Corpuscular HGB Conc 33.2 % (30-36); Mean Corpuscular Hemoglobin 28.5 PG (26-34); Monocytes Absolute Auto 500 /uL (0-900); Monocytes Percent Auto 8.4 % (3-14); Neutrophils Absolute Auto 3900 /uL (1500-7000); Neutrophils Percent Auto 69.6 % (50-75); Platelet Count 129 X10^3/uL (150-400); Prothrombin Time 11.3 SECONDS (10.1-12.7); Red Blood Cell Count 5.11 X10^6/uL (4.5-5.9); Red Cell Distribution Width 13.8 % (11.6-14.8); White Blood Cell Count 5.6 X10^3/uL (4.5-11.0)
[2020-01-22 11:38] LABS: PTT Partial Thromboplastin Tim 31 SECONDS (26.4-36.2)
[2020-01-22 11:40] LABS: Alanine Aminotransferase 23 IU/L (<50); Albumin 4.3 g/dL (3.5-5.0); Albumin Globulin Ratio 1.5 (1.0-2.8); Alkaline Phosphatase 83 U/L (38-126); Aspartate Aminotransferase 23 IU/L (17-59); BUN Creatinine Ratio 20.9 (6-22); Bilirubin Total 0.8 mg/dL (0.2-1.3); Blood Urea Nitrogen 24 mg/dL (9-20); Calcium 9.3 mg/dL (8.4-10.2); Carbon Dioxide 25 mmol/L (22-32); Chloride 103 mmol/L (98-107); Creatine Kinase 54 U/L (55-170); Estimated Glomerular Filt Rate > 60.0 mL/min (>60); Globulin 2.8 g/dL (1.7-4.1); Glucose 147 mg/dL (80-110); HEMOLYSIS < 15 (0-50); Potassium 4.1 mmol/L (3.4-5.1); Sodium 136 mmol/L (137-145); Total Protein 7.1 g/dL (6.3-8.2)
--- NOTE | 2020-01-22 11:46 | PC.NURSE ---
patient states that he coughs after he eats and that he has swallowing challenges.
--- NOTE | 2020-01-22 11:51 | DI.CT.S_ITS ---
PROCEDURE: CT CERVICAL SPINE WO CON INDICATIONS: fall from standing, neck pain TECHNIQUE: Noncontrast 3 mm thick sections acquired from the skull base to the T4 level. Sagittal and coronal reformats were then constructed. For radiation dose reduction, the following was used: automated exposure control, adjustment of mA and/or kV according to patient size. COMPARISON: [facility], CR, XR CHEST 1V, 01/22/2020, 11:39. [facility], CT, CT HEAD/BRAIN WO CON, 01/22/2020, 11:35. [facility], CT, CT CERVICAL SPINE WO CON, 09/27/2019, 11:07. FINDINGS: Image quality: Excellent. Bones: No fractures or dislocations. Visualized superior ribs are intact. There is severe disc space narrowing seen at C3-C4 and C5-C6, with at least moderate disc space narrowing at C4-C5 and C6-C7. Endplate irregularity and sclerosis are seen, which are most prominent at C5-C6. Focal degenerative change can also be seen involving the C1-C2 interface anteriorly. Mild grade 1 anterolisthesis is seen at C4-C5. Postoperative changes are seen, with removal of portions of the posterior elements inferiorly. Soft tissues: Prevertebral soft tissues are normal in thickness. No paravertebral hematomas. No apical pneumothoraces. There is a calcified left thyroid lesion again seen. IMPRESSION: No acute fractures are seen. Prominent degenerative changes are seen. Prior postoperative change, with removal of portions of the posterior elements inferiorly. Dictated by: Luis Carlos Soni M.D. on 01/22/2020 at 11:20 Approved by: Luis Carlos Soni M.D. on 01/22/2020 at 11:23
[2020-01-22 11:52] LABS: Troponin I < 0.012 ng/mL (0.01-0.034)
[2020-01-22 13:54] LABS: Bacteria Urine None Seen; RBC Urine None Seen (0-5/HPF); WBC Urine None Seen (0-5/HPF)
[2020-01-22 14:16] LABS: Appearance Urine UA CLEAR; Bilirubin Urine UA NEGATIVE (NEGATIVE); Color Urine UA YELLOW; Glucose Urine UA NEGATIVE (Negative); Ketones Urine UA NEGATIVE (NEGATIVE); Leukocyte Esterase Urine UA NEGATIVE (NEGATIVE); Nitrite Urine UA NEGATIVE (Negative); Occult Blood Urine UA NEGATIVE (Negative); Protein Urine UA NEGATIVE (Negative); Urobilinogen Urine UA 0.2 E.U./dL (0.2)
[2020-01-22 14:47] LABS: Squamous Epithelial Cell Urine 0-1 /HPF (0-5/HPF)
[2020-01-22 14:48] LABS: Culture Indicated Urine Cult Not Indicated
[2020-01-22 15:29] LABS: UR Morphine/Opiate cutoff 300 Negative (Negative); Ur Creatinine Normal (Normal); Ur Specific Gravity Normal (Normal); Urine Amphetamines Negative (Negative); Urine Barbiturates Negative (Negative); Urine Benzodiazepines Negative (Negative); Urine Cocaine Negative (Negative); Urine MDMA Negative (Negative); Urine Methadone Negative (Negative); Urine Methamphetamines Negative (Negative); Urine Oxycodone Negative (Negative); Urine Phencyclidine Negative (Negative); Urine Tetrahydrocannabinol Negative (Negative); Urine Tricyclic Antidepressant Negative (Negative); Urine pH Normal (Normal)
[2020-01-22 17:56] LABS: COVID19 -Nasal RAPID Negative (Negative)
--- NOTE | 2020-01-22 20:06 | PC.NURSE ---
Patient stated earlier that he is glad that he is staying the night because he would be lonely and depressed at his house
[2020-01-23] MEDS: HYDROCODONE/ACET 5/325 TABLET 1 TAB PO (01:55)
--- NOTE | 2020-01-23 13:54 | CM.SWNOTE ---
MH Assessment Patient is an 84 year old male who was admitted to [place] ED on 01/22/20 for Fall, confusion. Pt has [employer] and [employer] for insurance and his PCP is Dr. Duke Felix. EMR was reviewed. Per MD, pt seems to be medically cleared and ambulated well with staff but PEST CONTROL APPLICATOR Consult placed as pt answered yes to feelings of depression, suicidal ideation. Pt remained overnight in the ED waiting for PEST CONTROL APPLICATOR consult this morning as pt did not feel safe to return home alone last night. SW met bedside with pt in ED room 10 and explained role and pt somewhat [place] and can hear best out of his left ear. SW spent a lengthy amount of time bedside with pt giving a thorough historical update on his life and his current living situation. Pt resides at [facility] for the past 2 years and has two local sons, Rupert and Chirag, whom he sees regularly and then has adult Dtr in [place] and sister babak Hearn in [place]. Pt seems to be closest to Rupert and he sees him weekly and pt and Rupert have begun looking into a house that they could live in together but currently the housing market is too expensive. Pt identifies that he is feeling isolated and depressed especially with COVID 19 restrictions of guests at [facility] although pt has been able to go to his sons' houses for visits. Pt's downsizing from a house to [facility] has been very difficult on him. Pt is also used to being actively involved in volunteering/jobs and does not currently have that since his move into [facility]. 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 and without this involvement pt appears to be feeling less productive and engaged in the community which he confirms increases his depressive feelings. Pt denies any current suicidal ideation or plan but acknowledges that his isolation is contributing to his depressed state. Pt's family and also his current dog Saranya are very strong motivators and protective factors that off set his risk factors of depression. Pt very agreeable to become engaged in the community and SW discussed known volunteer opportunities based on pt's stated interests, including [facility], [employer], and [employer]. SW provided the names and contacts for the above mentioned volunteer opportunities (pending their COVID 19 restrictions) and also discussed and provided the brochure for the [employer] as a resources for talking to someone just to chat not necessarily in a Crisis state only. Pt's son Rupert called and is aware pt is admitted to [place] ED. SW updated RN and encouraged a call to pt's son Rupert to update on pt's isolation/depression and resources provided and SW updated MD. Plan: Patient to d/c home via likely son Rupert's POV and resources provided for pt to follow up in the community and hopefully to get engaged in volunteer activities to reduce his isolation. JARROD Hyde
[2020-01-23 15:00] VITALS: BP 141/86; PULSE 71; RESP 20; TEMP 36.7; O2SAT 97
== END 2020-01-23 15:25 | disposition home or self-care (01) ==
PROVIDERS: Emergency Medicine; Emergency Provider Emergency Medicine; Family Provider Internal Medicine; PCP Internal Medicine
DX: D47.3 Essential (hemorrhagic) thrombocythemia (principal); R00.1 Bradycardia, unspecified; S09.90XA Unspecified injury of head, initial encounter; R41.0 Disorientation, unspecified; W19.XXXA Unspecified fall, initial encounter
CPT/HCPCS: 36415; 70450; 71045; 72125; 80053; 80305; 81001; 82550; 84484; 85025; 85610; 85730; 87635; 93005; 93010; 99284

== ENCOUNTER 2020-07-29 18:20 | Emergency (ER) | payer MEDICARE, OTHER, SELFPAY ==
[2020-07-29 18:26] VITALS: PULSE 91; RESP 24; TEMP 37; O2SAT 100
--- NOTE | 2020-07-29 18:28 | DI.RAD.S_ITS ---
PROCEDURE: XR RIBS RT MIN 3V W CXR 1V INDICATIONS: fall, rt anterior rib pain TECHNIQUE: 4 views of the right ribs were acquired, along with a single view chest. COMPARISON: [facility], CR, XR CHEST 1V, 01/22/2020, 11:39. [facility], CT, CT CERVICAL SPINE WO CON, 01/22/2020, 11:35. [facility], CR, XR RIBS RT MIN 3V W CXR 1V, 10/03/2019, 11:15. FINDINGS: Surgical changes and devices: None. Bones and chest wall: Question of nondisplaced right 8th rib fracture. Prior left 6th through 9th rib fractures. No suspicious bony lesions. Overlying soft tissues appear unremarkable. Lungs and pleura: No pleural effusions or pneumothorax. No consolidation. Mildly prominent pulmonary markings bilaterally similar to the prior exam. Suspect emphysematous change. Mediastinum: Mediastinal contours appear unchanged. Tortuous aorta. Heart size is normal. IMPRESSION: Question of nondisplaced right 8th rib fracture. Prior left-sided rib fractures. Increased pulmonary markings bilaterally similar to the prior exam. This could be due to emphysematous change. Dictated by: Matthew Burger M.D. on 07/29/2020 at 19:59 Approved by: Matthew Burger M.D. on 07/29/2020 at 20:02
--- NOTE | 2020-07-29 18:31 | ED.FALL ---
HPI - Fall General Chief Complaint: Fall Stated Complaint: FELL RIGHT SIDE SORENESS Time Seen by Provider: 07/29/20 18:31 Source: patient Mode of arrival: Ambulatory History of Present Illness HPI Narrative: Esvin presents today with chief complaint of right-sided rib pain. He is an 84-year-old male with past medical history of total knee replacement, hypertension, occasional dizziness. He reports that he has had multiple times that his knee will give out. The last time this occurred was 3 days ago when he was walking. He reports that he fell to the right side hitting his rib on the corner a counter. He denies hitting his head, loss of consciousness, or any other injuries. He reports that he has had significant and consistent pain in his right rib since this occurred. He originally expected it to go away but it has not. pain is made worse with pressing on the area, deep breaths, or twisting movements. Pain is better with staying still. He has no other acute concerns or complaints at this time. Related Data Home Medications Medication Instructions Recorded Confirmed amlodipine 5 mg PO DAILY 11/20/17 01/22/20 aspirin 81 mg PO DAILY 11/20/17 09/27/19 lisinopril-hydrochlorothiazide 1 tab PO DAILY 11/20/17 01/22/20 allopurinol 300 mg PO DAILY 02/12/18 01/22/20 chlorthalidone 25 mg PO DAILY 02/12/18 09/27/19 cyanocobalamin (vitamin B-12) 1,000 mcg PO DAILY 09/21/18 09/27/19 1,000 mcg capsule guaifenesin 100 mg/5 mL oral liquid 200 mg PO Q6H PRN 09/21/18 09/27/19 lorazepam 0.5 mg tablet 0.5 mg PO BEDTIME PRN 09/21/18 09/27/19 metoprolol tartrate 25 mg tablet 12.5 mg PO BID 09/21/18 09/27/19 rosuvastatin 10 mg tablet 10 mg PO DAILY 09/21/18 01/22/20 sertraline 50 mg tablet 50 mg PO DAILY 09/21/18 01/22/20 Previous Rx's Medication Instructions Recorded hydrocodone-acetaminophen 1 tab PO Q4-6H PRN #14 tab 11/20/17 cyclobenzaprine 5 mg PO TID PRN #15 tab 05/15/19 naproxen [Naprosyn] 500 mg PO BID PRN #20 tab 05/15/19 Allergies Allergy/AdvReac Type Severity Reaction Status Date / Time No Known Drug Allergies Allergy Verified 09/27/19 11:35 Review of Systems Review of Systems ROS Unobtainable: All systems reviewed & are unremarkable except as noted in HPI and below Patient History Medical History (Updated 07/29/20 @ 19:18 by Jared Castle PA-C) Allergic rhinitis Arachnoid cyst B12 deficiency Cellulitis Chronic kidney disease Degenerative cervical disc DVT (deep venous thrombosis) Gouty arthropathy Hearing loss Hypertension Osteoarthritis Peptic ulcer disease Prostate cancer Vertigo Surgical History History of knee replacement Hx of appendectomy Hx of laminectomy Hx of radical prostatectomy Hx of rotator cuff surgery Hx of thumb surgery No pertinent past surgical history Social History Smoking Status: Former smoker Smoking Status: Former smoker alcohol intake frequency: holidays/special occasions only Substance Use Type: does not use Exam Narrative Exam Narrative: Exam Narrative: Const General: cooperative, healthy appearing, comfortable, no acute distress, well developed and well groomed Nutritional Appearance: average body habitus Orientation: alert and oriented x3 HENMT Head: normal to inspection and atraumatic Ears: hearing grossly normal bilaterally Nose: external nose normal and nares normal Face and sinus: normal facial exam Neck Neck: normal visual inspection and supple Resp Effort & Inspection: normal respiratory effort, able to speak in complete sentences, no audible wheezes, not labored, no nasal flaring and no respiratory distress, Equal breath sounds bilaterally and clear to auscultation. Chest right anterior rib tenderness to palpation. GI nondistended, normal bowel sounds, no significant tenderness with palpation. Neuro General: alert, oriented x3, gait normal, tone normal and moves all extremities Cognition: normal cognition Speech: speech normal Gait: normal gait Psych Appearance: grossly normal and well kempt Mental Status: mental status grossly normal Speech and Movement: speech and movement normal Mood: congruent mood Affect: normal affect Initial Vital Signs Initial Vital Signs: Vital Signs Temperature 98.6 F 07/29/20 18:26 Pulse Rate 91 H 07/29/20 18:26 Respiratory Rate 24 07/29/20 18:26 Pulse Oximetry 100 07/29/20 18:26 Course Orders Ordered: ED Orders 07/29/20 18:28 XR ribs RT min 3V w CXR1V Stat Vital Signs Vital signs: Vital Signs - 8 hr 07/29/20 18:26 Temperature 98.6 F Pulse Rate 91 H Respiratory Rate 24 Pulse Oximetry 100 Discharge Plan Departure Patient Disposition: Home Clinical Impression: Contusion of rib Qualifiers: Encounter type: initial encounter Laterality: right Qualified Code(s): S20.211A - Contusion of right front wall of thorax, initial encounter Instructions: How to Prevent Falls Activity Restrictions/Additional Instructions: It was very nice to meet you this evening. Please use your prescribed pain medications to continue to help with your symptoms. Recommend alternating between application of ice and warm compresses. I expect your symptoms to improve over the next few days. Return precautions include fever, difficulty breathing, abdominal pain, or any other acute concerns or complaints. Otherwise, please call your primary care provider on Thursday to schedule a follow-up appointment. Patient verbalizes understanding and agrees to plan and has no further concerns at this time. Thank you A [id number] system was used with the dictation of this note. Please disregard any spelling or grammatical errors. Prescriptions: No Action cyanocobalamin (vitamin B-12) 1,000 mcg capsule 1,000 mcg PO DAILY RF: 0 guaifenesin 100 mg/5 mL liquid 200 mg PO Q6H PRN (Reason: Pain (Scale Score 1-3)) RF: 0 lorazepam 0.5 mg tablet 0.5 mg PO BEDTIME PRN (Reason: Anxiety) RF: 0 metoprolol tartrate 25 mg tablet 12.5 mg PO BID RF: 0 rosuvastatin 10 mg tablet 10 mg PO DAILY RF: 0 sertraline 50 mg tablet 50 mg PO DAILY RF: 0 lisinopril-hydrochlorothiazide 20-12.5 mg tablet 1 tab PO DAILY RF: 0 amlodipine 5 mg tablet 5 mg PO DAILY RF: 0 aspirin 81 mg Tablet,Delayed Release (Dr/Ec) 81 mg PO DAILY RF: 0 hydrocodone-acetaminophen 5-325 mg tablet 1 tab PO Q4-6H PRN (Reason: pain) Qty: 14 RF: 0 chlorthalidone 25 mg tablet 25 mg PO DAILY RF: 0 allopurinol 300 mg tablet 300 mg PO DAILY RF: 0 naproxen [Naprosyn] 500 mg tablet 500 mg PO BID PRN (Reason: pain) Qty: 20 RF: 0 cyclobenzaprine 5 mg tablet 5 mg PO TID PRN (Reason: muscle spasm) Qty: 15 RF: 0 Referrals: Duke Felix MD [Primary Care Provider] -
== END 2020-07-29 20:01 | disposition home or self-care (01) ==
PROVIDERS: Emergency Provider Physician Assistant; Family Provider Internal Medicine; PCP Internal Medicine
DX: S20.211A Contusion of right front wall of thorax, initial encounter (principal); W19.XXXA Unspecified fall, initial encounter
CPT/HCPCS: 71101; 99281; 99283

== ENCOUNTER → 2020-08-07 18:49 | Outpatient (ROUT) | payer MEDICARE, OTHER, SELFPAY ==
[2020-08-07 19:29] LABS: Add Manual Diff / Slide Review NO; Basophils Absolute Auto 100 /uL (0-100); Eosinophils Absolute Auto 100 /uL (0-450); Eosinophils Percent Auto 2.3 % (2-4); Hematocrit 40.3 % (41-53); Hemoglobin 13.7 g/dL (13.5-17.5); Lymphocytes Absolute Auto 700 /uL (1100-4500); Lymphocytes Percent Auto 12.3 % (25-40); Mean Corpuscular Hemoglobin 30.9 PG (26-34); Monocytes Absolute Auto 500 /uL (0-900); Monocytes Percent Auto 8.3 % (3-14); Neutrophils Absolute Auto 4400 /uL (1500-7000); Neutrophils Percent Auto 76.1 % (50-75); Platelet Count 132 X10^3/uL (150-400); Red Blood Cell Count 4.43 X10^6/uL (4.5-5.9); Red Cell Distribution Width 14.1 % (11.6-14.8); White Blood Cell Count 5.7 X10^3/uL (4.5-11.0)
[2020-08-07 19:36] LABS: Aspartate Aminotransferase 26 IU/L (17-59); BUN Creatinine Ratio 21.1 (6-22); Blood Urea Nitrogen 24 mg/dL (9-20); Calcium 9.7 mg/dL (8.4-10.2); Carbon Dioxide 28 mmol/L (22-32); Chloride 105 mmol/L (98-107); Cholesterol 140 mg/dL (140-199); Estimated Glomerular Filt Rate > 60.0 mL/min (>60); Glucose 98 mg/dL (80-110); HDL Cholesterol 41 mg/dL (40-60); HEMOLYSIS < 15 (0-50); LDL Cholesterol Calculated 81 mg/dL (<100); Phosphorous 3.6 mg/dL (2.3-3.7); Potassium 4.3 mmol/L (3.4-5.1); Sodium 140 mmol/L (137-145); Triglycerides 89 mg/dL (35-150)
[2020-08-09 06:36] LABS: Parathyroid Hormone Int 84 pg/mL (15-65)
== END ==
PROVIDERS: Family Provider Internal Medicine; PCP Internal Medicine; Visit Provider Internal Medicine
DX: I10 Essential (primary) hypertension (principal); E78.2 Mixed hyperlipidemia; N18.30 Chronic kidney disease, stage 3 unspecified
CPT/HCPCS: 80048; 80061; 83970; 84100; 84450; 85025

== ENCOUNTER → 2021-02-12 12:40 | Outpatient (CLI) | payer MEDICARE, OTHER, SELFPAY ==
--- NOTE | 2021-02-12 12:42 | DI.RAD.S_ITS ---
PROCEDURE: XR KNEE LT 1TO2V INDICATIONS: LEFT KNEE PAIN TECHNIQUE: 2 views of the knee were acquired. COMPARISON: [facility], , XR KNEE LT 3V, 07/22/2019, 9:58. FINDINGS: Bones: Expected appearance of total left knee arthroplasty with no evidence of hardware failure or loosening. No fractures or dislocations. No suspicious bony lesions. Soft tissues: No joint effusion. No suspicious soft tissue calcifications. IMPRESSION: Expected appearance of total left knee arthroplasty. Dictated by: Ben Mcallister M.D. on 02/12/2021 at 14:52 Approved by: Ben Mcallister M.D. on 02/12/2021 at 14:53
== END ==
PROVIDERS: Family Provider Internal Medicine; PCP Internal Medicine; Referring Provider Internal Medicine; Visit Provider Internal Medicine
DX: M25.562 Pain in left knee (principal); Z96.652 Presence of left artificial knee joint
CPT/HCPCS: 73560

== ENCOUNTER 2021-04-03 13:57 | Emergency (ER) | payer MEDICARE, OTHER, SELFPAY ==
[2021-04-03] VITALS (10 sets, daily range): BP systolic 168–214; BP diastolic 105–131; PULSE 65–78; RESP 20–24; TEMP 36.6; O2SAT 96–99
--- NOTE | 2021-04-03 14:04 | DI.RAD.S_ITS ---
PROCEDURE: XR CHEST 1V INDICATIONS: chest pain TECHNIQUE: One view of the chest was acquired. COMPARISON: [facility], CR, XR CHEST 1V, 01/22/2020, 11:39. FINDINGS: Surgical changes and devices: None. Lungs and pleura: Diffuse bilateral perihilar interstitial congestion. Possible retrocardiac alveolar opacity. Questionable opacity in the right lung apex, potentially a 1st rib arc. Mediastinum: Bilateral perihilar central vascular congestion. Stable aortic contour. Mildly enlarged heart. Bones and chest wall: Remote, healed left lateral rib fractures. Overlying soft tissues are normal. IMPRESSION: 1. Central vascular and interstitial congestion suggesting CHF 2. Possible right apical parenchymal opacity, most likely 1st rib arc, although PA and lateral chest x-ray is recommended when patient is able. 3. Possible left retrocardiac alveolar opacity, atelectasis, pulmonary edema, or infection. Dictated by: Diana Redd M.D. on 04/03/2021 at 15:08 Approved by: Diana Redd M.D. on 04/03/2021 at 15:10
[2021-04-03 14:27] LABS: Add Manual Diff / Slide Review NO; Basophils Absolute Auto 0 /uL (0-100); Basophils Percent Auto 0.6 % (0-2); Eosinophils Absolute Auto 100 /uL (0-450); Eosinophils Percent Auto 2.6 % (2-4); Hematocrit 40.5 % (41-53); Hemoglobin 13.6 g/dL (13.5-17.5); Lymphocytes Absolute Auto 800 /uL (1100-4500); Lymphocytes Percent Auto 18.9 % (25-40); Mean Corpuscular HGB Conc 33.6 % (30-36); Mean Corpuscular Hemoglobin 28.3 PG (26-34); Mean Corpuscular Volume 84.2 fL (80-100); Monocytes Absolute Auto 400 /uL (0-900); Monocytes Percent Auto 9.4 % (3-14); Neutrophils Absolute Auto 3100 /uL (1500-7000); Neutrophils Percent Auto 68.5 % (50-75); Platelet Count 127 X10^3/uL (150-400); Red Blood Cell Count 4.81 X10^6/uL (4.5-5.9); Red Cell Distribution Width 14.5 % (11.6-14.8); White Blood Cell Count 4.5 X10^3/uL (4.5-11.0)
[2021-04-03 14:44] LABS: Alanine Aminotransferase 19 IU/L (<50); Albumin 4.2 g/dL (3.5-5.0); Albumin Globulin Ratio 1.4 (1.0-2.8); Alkaline Phosphatase 86 U/L (38-126); Aspartate Aminotransferase 21 IU/L (17-59); Bilirubin Total 0.6 mg/dL (0.2-1.3); Blood Urea Nitrogen 22 mg/dL (9-20); Calcium 9.9 mg/dL (8.4-10.2); Carbon Dioxide 28 mmol/L (22-32); Chloride 107 mmol/L (98-107); Creatine Kinase 48 U/L (55-170); Estimated Glomerular Filt Rate 56.6 mL/min (>60); Globulin 2.9 g/dL (1.7-4.1); Glucose 131 mg/dL (80-110); HEMOLYSIS < 15 (0-50); Lipase 106 U/L (23-300); Sodium 142 mmol/L (137-145); Total Protein 7.1 g/dL (6.3-8.2)
[2021-04-03 14:56] LABS: Troponin I < 0.012 ng/mL (0.01-0.034)
[2021-04-03 15:49] LABS: COVID19 -Nasal RAPID Negative (Negative)
[2021-04-03 16:02] LABS: NT-proBNP (BNP-Adult 18+) 344 pg/mL (<450)
--- NOTE | 2021-04-03 16:13 | ED.GENADULT ---
HPI - General Adult General Chief complaint: Hypertension Stated complaint: sent by Dr. Keene, high BP Time Seen by Provider: 04/03/21 14:31 Source: patient Mode of arrival: Ambulatory History of Present Illness HPI narrative: Patient is a 85-year-old male the history of high blood pressure. He went to your nose and throat office today for evaluation of issues that he has been having. He was started on Augmentin. During that visit it was seen that he had an elevated blood pressure. He denies chest pain. No shortness of breath. No headache. No vision changes. He does admit he did not take any of his blood pressure medications this morning because he was unsure as to what was what happened at the your nose and throat office needed want to complicate that visit. He does not have an appointment with his primary doctor scheduled. Related Data Home Medications Medication Instructions Recorded Confirmed amlodipine 5 mg tablet 5 mg PO DAILY 11/20/17 04/02/21 aspirin 81 mg tablet,delayed 81 mg PO DAILY 11/20/17 04/02/21 release lisinopril 20 1 tab PO DAILY 11/20/17 04/02/21 mg-hydrochlorothiazide 12.5 mg tablet allopurinol 300 mg tablet 300 mg PO DAILY 02/12/18 04/02/21 rosuvastatin 10 mg tablet 10 mg PO DAILY 09/21/18 04/02/21 sertraline 50 mg tablet 50 mg PO DAILY 09/21/18 04/02/21 Previous Rx's Medication Instructions Recorded cephalexin 500 mg capsule 500 mg PO QID #10 [facility] 09/14/20 oxycodone 5 mg capsule 5 mg PO Q4H PRN #7 [facility] 09/14/20 Allergies Allergy/AdvReac Type Severity Reaction Status Date / Time No Known Drug Allergies Allergy Verified 04/02/21 13:27 Review of Systems Constitutional Constitutional: Denies fever(s) and Denies headache(s) Eyes Eyes: Denies change in vision ENT Ears, Nose, Mouth, and Throat: Denies vertigo, Denies dizziness and Denies headache(s) Cardiovascular Cardiovascular: Denies chest pain and Denies dyspnea Respiratory Respiratory: Denies dyspnea Gastrointestinal Gastrointestinal: Denies abdominal pain Neurologic Neurologic: Denies vertigo, Denies dizziness and Denies headache(s) Hematologic/Lymphatic On Anticoagulants: No Patient History Medical History Allergic rhinitis Arachnoid cyst B12 deficiency Cellulitis Chronic kidney disease Degenerative cervical disc DVT (deep venous thrombosis) Gouty arthropathy Hearing loss Hypertension Osteoarthritis Peptic ulcer disease Prostate cancer Vertigo Surgical History History of knee replacement Hx of appendectomy Hx of laminectomy Hx of radical prostatectomy Hx of rotator cuff surgery Hx of thumb surgery No pertinent past surgical history Social History Smoking Status: Former smoker Smoking Status: Former smoker alcohol intake frequency: holidays/special occasions only Substance Use Type: does not use Exam Initial Vital Signs Initial Vital Signs: Vital Signs Temperature 97.9 F 04/03/21 14:00 Pulse Rate 75 04/03/21 14:00 Respiratory Rate 22 04/03/21 14:00 Blood Pressure 210/131 H 04/03/21 14:00 Pulse Oximetry 99 04/03/21 14:00 HENMT Head: normal to inspection and normocephalic Resp Effort & Inspection: normal respiratory effort Auscultation: clear to auscultation bilaterally Cardio Rate: regular rate Rhythm: regular rhythm GI Inspection: normal to inspection Skin General: no rashes or lesions noted Neuro General: patient alert, patient awake, patient oriented x3 and moves all extremities Extrem General: normal to inspection and capillary refill normal Psych Appearance: grossly normal and well kempt Course Orders Ordered: ED Orders 04/03/21 14:04 XR chest 1V Stat EKG-12 Lead Stat 04/03/21 14:10 BNP [NT-proBNP (BNP-Adult 18+)] Stat COVID19 -Nasal swab/Pre-Proc Stat Complete Blood Count AUTO DIFF Stat Comprehensive Metabolic Panel Stat Lipase Stat Magnesium Stat Troponin & CK Cardiac Panel Stat 04/03/21 16:15 Consult to [employer] - Community Chest Officer Stat 04/03/21 17:11 XR chest 2V Stat Discontinued Medications Amlodipine Besylate (Amlodipine 5 Mg Tablet) 5 mg PO NOW ONE Stop: 04/03/21 16:15 Last Admin: 04/03/21 16:30 Dose: 5 mg Documented by: HIRA Lisinopril (Lisinopril 20 Mg Tablet) 40 mg PO NOW ONE Stop: 04/03/21 16:15 Last Admin: 04/03/21 16:29 Dose: 40 mg Documented by: HIRA Vital Signs Vital signs: Vital Signs - 8 hr 04/03/21 14:00 04/03/21 16:03 04/03/21 16:29 Temperature 97.9 F Pulse Rate 75 65 78 Respiratory Rate 22 20 Blood Pressure 210/131 H 207/114 H 207/114 H Pulse Oximetry 99 98 04/03/21 16:30 04/03/21 16:31 04/03/21 17:00 Temperature Pulse Rate 66 67 75 Respiratory Rate 23 23 21 Blood Pressure 197/117 H Pulse Oximetry 97 96 98 04/03/21 17:01 04/03/21 17:27 04/03/21 17:28 Temperature Pulse Rate 75 71 74 Respiratory Rate 24 24 24 Blood Pressure 214/117 H 181/105 H Pulse Oximetry 98 97 97 04/03/21 17:30 Temperature Pulse Rate 78 Respiratory Rate 21 Blood Pressure 168/107 H Pulse Oximetry 97 Medical Decision Making Lab Data Lab results reviewed: Yes I reviewed the patient's lab results. Result diagrams: 04/03/21 14:10 04/03/21 14:10 Labs: Lab Results 04/03/21 04/03/21 04/03/21 Range/Units 14:10 14:10 14:10 WBC 4.5 (4.5-11.0) X10^3/uL RBC 4.81 (4.5-5.9) X10^6/uL Hgb 13.6 (13.5-17.5) g/dL Hct 40.5 L (41-53) % MCV 84.2 (80-100) fL MCH 28.3 (26-34) PG MCHC 33.6 (30-36) % RDW 14.5 (11.6-14.8) % Plt Count 127 L (150-400) X10^3/uL Neut % (Auto) 68.5 (50-75) % Lymph % (Auto) 18.9 L (25-40) % [place] % (Auto) 9.4 (3-14) % Eos % (Auto) 2.6 (2-4) % Baso % (Auto) 0.6 (0-2) % Neut # (Auto) 3100 (1490-9457) /uL Lymph # (Auto) 800 L (3297-5581) /uL [place] # (Auto) 400 (0-900) /uL Eos # (Auto) 100 (0-450) /uL Baso # (Auto) 0 (0-100) /uL Sodium 142 (137-145) mmol/L Potassium 4.0 (3.4-5.1) mmol/L Chloride 107 (98-107) mmol/L Carbon Dioxide 28 (22-32) mmol/L BUN 22 H (9-20) mg/dL Creatinine 1.22 (0.66-1.25) mg/dL Estimated GFR 56.6 L (>60) mL/min BUN/Creatinine Ratio 18.0 (6-22) Glucose 131 H (80-110) mg/dL Calcium 9.9 (8.4-10.2) mg/dL Magnesium 2.0 (1.6-2.3) mg/dL Total Bilirubin 0.6 (0.2-1.3) mg/dL AST 21 (17-59) IU/L ALT 19 (<50) IU/L Alkaline Phosphatase 86 (38-126) U/L Total Creatine Kinase 48 L (55-170) U/L CK-MB (CK-2) TNP CK-MB (CK-2) Rel Index TNP Troponin I < 0.012 (0.01-0.034) ng/mL NT-Pro-B Natriuret Pep (<450) pg/mL Total Protein 7.1 (6.3-8.2) g/dL Albumin 4.2 (3.5-5.0) g/dL Globulin 2.9 (1.7-4.1) g/dL Albumin/Globulin Ratio 1.4 (1.0-2.8) Lipase 106 (23-300) U/L SARS-CoV-2 (PCR) Negative (Negative) 04/03/21 Range/Units 14:10 WBC (4.5-11.0) X10^3/uL RBC (4.5-5.9) X10^6/uL Hgb (13.5-17.5) g/dL Hct (41-53) % MCV (80-100) fL MCH (26-34) PG MCHC (30-36) % RDW (11.6-14.8) % Plt Count (150-400) X10^3/uL Neut % (Auto) (50-75) % Lymph % (Auto) (25-40) % [place] % (Auto) (3-14) % Eos % (Auto) (2-4) % Baso % (Auto) (0-2) % Neut # (Auto) (8098-1163) /uL Lymph # (Auto) (6282-0974) /uL [place] # (Auto) (0-900) /uL Eos # (Auto) (0-450) /uL Baso # (Auto) (0-100) /uL Sodium (137-145) mmol/L Potassium (3.4-5.1) mmol/L Chloride (98-107) mmol/L Carbon Dioxide (22-32) mmol/L BUN (9-20) mg/dL Creatinine (0.66-1.25) mg/dL Estimated GFR (>60) mL/min BUN/Creatinine Ratio (6-22) Glucose (80-110) mg/dL Calcium (8.4-10.2) mg/dL Magnesium (1.6-2.3) mg/dL Total Bilirubin (0.2-1.3) mg/dL AST (17-59) IU/L ALT (<50) IU/L Alkaline Phosphatase (38-126) U/L Total Creatine Kinase (55-170) U/L CK-MB (CK-2) CK-MB (CK-2) Rel Index Troponin I (0.01-0.034) ng/mL NT-Pro-B Natriuret Pep 344 (<450) pg/mL Total Protein (6.3-8.2) g/dL Albumin (3.5-5.0) g/dL Globulin (1.7-4.1) g/dL Albumin/Globulin Ratio (1.0-2.8) Lipase (23-300) U/L SARS-CoV-2 (PCR) (Negative) Imaging Data Chest x-ray: Radiologist's Impression: [address] [address] XRay Report Signed Patient: Esvin Coombs MR#: [id number] : 1935 Acct:[id number] Age/Sex: 85 / M Date of Service: 04/03/21 Loc: ED Accession Number: [id number] ?? Procedure: XR chest 1V Ordering Provider: King Rodriguez D.O. PROCEDURE:? XR CHEST 1V ? INDICATIONS:? chest pain ? TECHNIQUE:? One view of the chest was acquired.? ? COMPARISON:? [facility], XR CHEST 1V, 01/22/2020, 11:39. ? FINDINGS:? ? Surgical changes and devices:? None.? ? Lungs and pleura:? Diffuse bilateral perihilar interstitial congestion.? Possible retrocardiac alveolar opacity.? Questionable opacity in the right lung apex, potentially a 1st rib arc. ? Mediastinum:? Bilateral perihilar central vascular congestion.? Stable aortic contour.? Mildly enlarged heart. ? Bones and chest wall:? Remote, healed left lateral rib fractures.? Overlying soft tissues are normal. ? IMPRESSION:? ? 1. Central vascular and interstitial congestion suggesting CHF 2. Possible right apical parenchymal opacity, most likely 1st rib arc, although PA and lateral chest x-ray is recommended when patient is able. 3. Possible left retrocardiac alveolar opacity, atelectasis, pulmonary edema, or infection.? ? ? Dictated by: Diana Redd M.D. on 04/03/2021 at 15:08 ? ? Approved by: Diana Redd M.D. on 04/03/2021 at 15:10?? Two view chest x-ray: Radiologist's Impression: [place] [address] XRay Report Signed Patient: Esvin Coombs MR#: [id number] : 1935 Acct:[id number] Age/Sex: 85 / M Date of Service: 04/03/21 Loc: ED Accession Number: [id number] ?? Procedure: XR chest 2V Ordering Provider: King Rodriguez D.O. PROCEDURE:? XR CHEST 2V ? INDICATIONS:? Two view recommended by Radiology ? TECHNIQUE:? 2 views of the chest were acquired.? ? COMPARISON:? [facility], XR CHEST 1V, 04/03/2021, 14:27. ? FINDINGS:? ? Surgical changes and devices:? None.? ? Lungs and pleura:? Pulmonary vascular congestion is again seen.? Subtle opacity in left retrocardiac space is seen.? Ill-defined opacity is again seen in right upper lung field extending to right suprahilar region concerning for right upper lobe infiltrate versus mass.? No pleural effusions or pneumothorax.? ? Mediastinum:? Tortuous thoracic aorta is again seen.? Heart size is mildly enlarged. ? Bones and chest wall:? Remote healed left lateral rib fractures are again seen and are unchanged.? No suspicious bony abnormalities.? Soft tissues appear unremarkable.? ? IMPRESSION:? 1. Subtle opacity in left retrocardiac region suggestive of developing left lower lobe infiltrate.? Mild pulmonary vascular congestion and cardiomegaly.? No pleural effusion or pneumothorax. 2. Ill-defined opacity is again seen in right apex concerning for developing right upper lobe infiltrate.? Follow-up until resolution is recommended.? ? ? Dictated by: Rolan Quiroz M.D. on 04/03/2021 at 17:27 ? ? Approved by: Rolan Quiroz M.D. on 04/03/2021 at 17:30?? ECG Data Attestation: I personally reviewed and interpreted this ECG as follows: Interpretation: Sinus rhythm Ventricular rate 65 Right bundle branch block Normal axis QRS 154 milliseconds Normal QTC No CT changes MDM Narrative Medical decision making narrative: Patient is hypertensive but he does admit he has not taken any of his blood pressure medications this morning. I do have some question is whether not he takes these on a regular basis at baseline given what he has been stating. He states that his primary doctor has left the clinic that he is seen that however has not scheduled any follow-up with a new provider. He does not appear to have any end-organ dysfunction secondary to this high blood pressure. He states that he has been told that his blood pressure has been 240 in the past when he has been to different clinics. I gave him a dose of his medications per the list that he had with him. This did improve his systolic blood pressure. No further workup needed in the emergency department. He did have abnormalities noted on his chest x-ray that are not acute. I did inform him of this and told him that he needs to follow-up with his primary doctor because of this. He expressed understanding. He was also seen by social work. We were able to schedule a follow-up appointment tomorrow with primary provider. He was given return precautions. Expressed understanding and agreement. Discharge Plan Departure Patient Disposition: Home Clinical Impression: Hypertension Instructions: DI for High Blood Pressure Activity Restrictions/Additional Instructions: Dr. Keene prescribed a new medication for you. It appears this medication was transmitted to [email or web address]. Please pick it up and start taking it as directed. Your also on 2 different blood pressure medications. Be sure to take these medications as directed. We were able to schedule you an appointment tomorrow with physician legislative assistant Pavel at the [facility]. The phone numbers [phone]. This appointment is scheduled for 2:20 PM. Return to the emergency department for any new or worsening symptoms Prescriptions: No Action rosuvastatin 10 mg tablet 10 mg PO DAILY 0RF sertraline 50 mg tablet 50 mg PO DAILY 0RF cephalexin 500 mg capsule 500 mg PO QID Qty: 10 0RF oxycodone 5 mg capsule 5 mg PO Q4H PRN (Reason: painful procedure) Qty: 7 0RF lisinopril-hydrochlorothiazide 20-12.5 mg tablet 1 tab PO DAILY 0RF Label Comments: TK 1 T PO QD amlodipine 5 mg tablet 5 mg PO DAILY 0RF Label Comments: TK 1 T PO QD aspirin 81 mg Tablet,Delayed Release (Dr/Ec) 81 mg PO DAILY 0RF allopurinol 300 mg tablet 300 mg PO DAILY 0RF Label Comments: TK 1 T PO QD Referrals: Duke Felix MD [Primary Care Provider] -
[2021-04-03] MEDS: lisinopriL 20 MG TABLET 40 MG PO (16:29)
[2021-04-03] MEDS: AMLODIPINE 5 MG TABLET PO (16:30)
--- NOTE | 2021-04-03 17:11 | DI.RAD.S_ITS ---
PROCEDURE: XR CHEST 2V INDICATIONS: Two view recommended by Radiology TECHNIQUE: 2 views of the chest were acquired. COMPARISON: [facility], , XR CHEST 1V, 04/03/2021, 14:27. FINDINGS: Surgical changes and devices: None. Lungs and pleura: Pulmonary vascular congestion is again seen. Subtle opacity in left retrocardiac space is seen. Ill-defined opacity is again seen in right upper lung field extending to right suprahilar region concerning for right upper lobe infiltrate versus mass. No pleural effusions or pneumothorax. Mediastinum: Tortuous thoracic aorta is again seen. Heart size is mildly enlarged. Bones and chest wall: Remote healed left lateral rib fractures are again seen and are unchanged. No suspicious bony abnormalities. Soft tissues appear unremarkable. IMPRESSION: 1. Subtle opacity in left retrocardiac region suggestive of developing left lower lobe infiltrate. Mild pulmonary vascular congestion and cardiomegaly. No pleural effusion or pneumothorax. 2. Ill-defined opacity is again seen in right apex concerning for developing right upper lobe infiltrate. Follow-up until resolution is recommended. Dictated by: Rolan Quiroz M.D. on 04/03/2021 at 17:27 Approved by: Rolan Quiroz M.D. on 04/03/2021 at 17:30
--- NOTE | 2021-04-03 17:18 | CM.SWNOTE ---
ROUSTABOUT PUSHER Note ROUSTABOUT PUSHER receives consult and enters room to meet with patient. Patient is 85 y/o male who presents to the ED after ENT appt today and Dr. Keene's recommendation for patient to seek ED medical attention due to high BP. Patient endorses recent GLFs, his hx of knee replacements, as well as arthritis and gout in his legs. Patient states he resides at [facility]. Patient states that his three years ago from cancer and his dog recently . Patient states he has two sons that live in [place] that check in on him regularly. ROUSTABOUT PUSHER calls [facility] and schedules ED f/u and PCP establish appt with Nichelle Zhao PA-C for tomorrow 04/04/21 at 2:20 pm since patient's previous PCP Dr. Felix is no longer practicing in [place]. Patient requests that ROUSTABOUT PUSHER call him son. Patient's sons' contact information is not in EMR so with patient's permission ROUSTABOUT PUSHER calls patient's sister in law and leaves message requesting sons' phone numbers. ROUSTABOUT PUSHER requests registration to add Patient's son Rupert (ph.# [phone]) and Chirag (Ph. # [phone]) phone numbers to patient's EMR. ROUSTABOUT PUSHER calls patient's son Chirag and informs him of patient's visit to ED and scheduled PCP appt for tomorrow. Chirag states that he will call patient tomorrow. Upon d/c to home it is observed that patient cannot find his keys. Tabby WELLS and ROUSTABOUT PUSHER search patient's truck, the parking lot and every area in the ED during patient's stay. Patient has spare car blank and states he has access to his home. Patient is informed to come back tomorrow to have someone check lost and found. Plan: patient to d/c to home when medically clear with PCP f/u tomorrow. JARROD Cevallos
== END 2021-04-03 18:00 | disposition home or self-care (01) ==
PROVIDERS: Emergency Provider Emergency Medicine; Family Provider Internal Medicine; PCP Internal Medicine
DX: I12.9 Hypertensive chronic kidney disease with stage 1 through stage 4 chronic kidney disease, or unspecified chronic kidney disease (principal); N18.9 Chronic kidney disease, unspecified; Z87.891 Personal history of nicotine dependence; Z79.899 Other long term (current) drug therapy; Z20.822 Contact with and (suspected) exposure to COVID-19
CPT/HCPCS: 36415; 71045; 71046; 80053; 82550; 83690; 83735; 83880; 84484; 85025; 87635; 93005; 99284; C9803

== ENCOUNTER → 2021-08-12 10:12 | Outpatient (CLI) | payer MEDICARE, OTHER, SELFPAY ==
--- NOTE | 2021-08-12 10:14 | DI.RAD.S_ITS ---
PROCEDURE: XR HAND RT MIN 3V INDICATIONS: Right hand pain TECHNIQUE: 3 views of the hand(s) acquired. COMPARISON: [facility], , HAND 3V LEFT, 09/26/2016, 14:08. FINDINGS: Bones: No fractures or dislocations. Carpal bones are normally aligned. No suspicious bony lesions. Joint space narrowing and periarticular osteophyte formation at the radial carpal, scaphoid trapezial, 1st carpometacarpal joint, as well as the 1st through 3rd metacarpophalangeal joints and the interphalangeal joints of the digits. Soft tissues: Calcifications adjacent to the 2nd, 3rd, 4th, and 5th metacarpophalangeal joints. IMPRESSION: 1. Multifocal osteoarthritis. 2. CPPD arthropathy. Dictated by: Erika Reid M.D. on 08/13/2021 at 11:06 Approved by: Erika Reid M.D. on 08/13/2021 at 11:08
== END ==
PROVIDERS: Family Provider Internal Medicine; PCP Internal Medicine; Referring Provider Nurse Practitioner Family; Visit Provider Nurse Practitioner Family
DX: M19.041 Primary osteoarthritis, right hand (principal); M18.11 Unilateral primary osteoarthritis of first carpometacarpal joint, right hand; R22.31 Localized swelling, mass and lump, right upper limb
CPT/HCPCS: 73130

== ENCOUNTER 2021-08-14 14:58 | Emergency (ER) | payer MEDICARE, OTHER, SELFPAY ==
[2021-08-14 15:02] VITALS: BP 171/91; PULSE 74; RESP 22; TEMP 37.3; O2SAT 97; BMI 29.2
[2021-08-14 16:09] LABS: COVID19 -Nasal RAPID Negative (Negative)
--- NOTE | 2021-08-14 16:10 | ED_ITS ---
HPI - Extremity Injury (Upper) <Clara Solano, [facility] - Last Filed: 08/14/21 19:32> General Chief Complaint: Extremity Injury, Upper Stated Complaint: rt hand swelling Time Seen by Provider: 08/14/21 15:48 Source: patient Mode of arrival: Ambulatory History of Present Illness HPI narrative: This is an 85-year-old male who presents to the emergency department with complaints of worsening right hand pain over the last seven days. He reports that he has always had a small bump at the base of his thumb between his wrist that has been soft, but last night area started to become more swollen, painful.? Patient states last night area was so painful he had a hard time sleeping.? He has not done any treatments at home including ibuprofen or icing.? Patient has significant tenderness over the dorsum of his distal ulna and radius and the dorsum of his hand in certain points, with radiation up his arm like a nerve twinge. There is decreased range of motion with or see extension, flexion range of motion is intact without much deficit. There is erythema on the dorsum of his hand on the lateral aspect near the distal ulna and on the radial aspect near this mass, all areas of erythema were outlined today.? There is no drainage, known trauma or injury, unusual activity or overuse as far as he knows. Patient is very hard of hearing, he was seen in the walk-in clinic on 08/12/2021 and had an x-ray completed which did not show any bony abnormality. He was not prescribed any medications. Patient endorses feeling fatigued recently, more tired than usual with a cough. He states that he has been using Flonase and allergy medicine to help treat his symptoms. Patient endorses a history of gout and has had gout flares in his left foot primarily without any gout flares in his upper extremities. He states that the swelling and tenderness started four days ago and the redness started yesterday. Patient states that he uses a walker to ambulate at home. Related Data Home Medications Medication Instructions Recorded Confirmed amlodipine 5 mg tablet 5 mg PO DAILY 11/20/17 08/12/21 aspirin 81 mg tablet,delayed 81 mg PO DAILY 11/20/17 08/12/21 release lisinopril 20 1 tab PO DAILY 11/20/17 08/12/21 mg-hydrochlorothiazide 12.5 mg tablet allopurinol 300 mg tablet 300 mg PO DAILY 02/12/18 08/12/21 rosuvastatin 10 mg tablet 10 mg PO DAILY 09/21/18 08/12/21 sertraline 50 mg tablet 50 mg PO DAILY 09/21/18 08/12/21 Previous Rx's Medication Instructions Recorded cephalexin 500 mg capsule 500 mg PO QID inflamed cyst #10 09/14/20 caps oxycodone 5 mg capsule 5 mg PO Q4H PRN painful procedure 09/14/20 #7 caps azithromycin 250 mg tablet See Rx Instructions PO .COMPLEX #6 06/25/21 tabs benzonatate 100 mg capsule 100 mg PO BID PRN cough #30 caps 06/25/21 fluticasone propionate 50 2 spray intranasal DAILY #18.2 mL 06/25/21 mcg/actuation nasal spray,suspension (Flonase Allergy Relief) cetirizine 10 mg capsule (Zyrtec) 10 mg PO DAILY #20 caps 08/06/21 famotidine 20 mg tablet (Pepcid) 20 mg PO BID #30 tabs 08/06/21 benzocaine 15 mg-menthol 3.6 mg 1 kirt mucous membrane Q2-4H PRN 08/14/21 lozenges (Cepacol Sore Throat sore throat #16 ea (benzocaine-menthol)) diclofenac sodium 1 % topical gel 2 g topical QID PRN pain #100 grams 08/14/21 doxycycline hyclate 100 mg tablet 100 mg PO BID cellulitis 7 days 08/14/21 #14 tabs guaifenesin 600 mg tablet, 600 mg PO BID PRN cough #14 tabs 08/14/21 extended release 12 hr (Mucinex) Allergies Allergy/AdvReac Type Severity Reaction Status Date / Time No Known Drug Allergies Allergy Verified 08/12/21 09:49 Review of Systems <Clara Solano RADIOLOGIST [facility] - Last Filed: 08/14/21 19:32> Review of Systems Narrative: General: denies fever, chills, malaise, sweats, endorses having fatigue for the last four days Head/Neck: denies headache, neck pain, dizziness Eyes: denies visual changes, eye pain Cardio: denies chest pain, palpitations, edema Respiratory: denies dyspnea, cough, orthopnea GI: denies abdominal pain, nausea, vomiting, or diarrhea : denies dysuria, hematuria, urinary retention, frequency or incontinence MSK: denies joint pain, muscle weakness, endorses right hand swelling, erythema, tenderness to the dorsum with shooting pains up his forearm occasionally. Skin: denies rash, itching, endorses swelling and redness to the top of his right hand which has been getting worse over the last four days Neuro: denies numbness, tingling, endorses sharp shooting pain up his right forearm with certain movements Patient History <GONZALEZ Spaulding - Last Filed: 08/14/21 19:32> Medical History Allergic rhinitis Arachnoid cyst B12 deficiency Cellulitis Chronic kidney disease Degenerative cervical disc DVT (deep venous thrombosis) Gouty arthropathy Hearing loss Hypertension Osteoarthritis Peptic ulcer disease Prostate cancer Vertigo Surgical History History of knee replacement Hx of appendectomy Hx of laminectomy Hx of radical prostatectomy Hx of rotator cuff surgery Hx of thumb surgery No pertinent past surgical history Social History Smoking Status: Former smoker Smoking Status: Former smoker alcohol intake frequency: holidays/special occasions only Substance Use Type: does not use Exam <GONZALEZ Spaulding - Last Filed: 08/14/21 19:32> Narrative Exam Narrative: Independently reviewed vitals signs and nursing notes. General: cooperative, comfortable, in no acute distress, well groomed, patient is very hard of hearing, Head: atraumatic, symmetrical facial expressions Neck: supple Eyes: equal round and reactive, EOMI, conjunctiva normal Nose: nares patent, no rhinorrhea Mouth/Throat: moist mucus membranes Cardiovascular: regular rate and rhythm, no peripheral edema, warm extremities Respiratory: normal effort, able to speak in complete sentences, no audible wheezing, stridor, or rales. No retractions or tachypnea. GI: abdomen soft, nontender to palpation, nondistended, no masses, no exquisite tenderness with exam, without guarding or rebound. MSK: moves all extremities, neurovascularly intact, no weakness, normal tone, dorsum of right hand is edematous, erythematous across the whole hand, point tender on the lateral aspect near his distal ulna without fluctuance, erythema and edema appears like cellulitis it is outlined. It extends onto the thumb, dorsum of the hand, and slightly past the wrist line. No extension onto the p almar aspect, with certain palpations, patient would feel a sharp shooting pain up his arm. Wrist Flexion is intact without deficit, wrist extension is limited in causes worsening pain. Skin: brisk capillary refill, no rash, no erythema Neuro: normal speech and cognition, A&O x3 Psych: mental status is grossly normal, congruent mood, normal affect, pleasant and cooperative Initial Vital Signs Initial Vital Signs: Vital Signs Temperature 99.1 F 08/14/21 15:02 Pulse Rate 74 08/14/21 15:02 Respiratory Rate 22 08/14/21 15:02 Blood Pressure 171/91 H 08/14/21 15:02 Pulse Oximetry 97 08/14/21 15:02 Oxygen Delivery Method 08/14/21 15:02 <Divina Queen MD - Last Filed: 08/18/21 08:54> Initial Vital Signs Initial Vital Signs: Vital Signs Temperature 99.1 F 08/14/21 15:02 Pulse Rate 74 08/14/21 15:02 Respiratory Rate 22 08/14/21 15:02 Blood Pressure 171/91 H 08/14/21 15:02 Pulse Oximetry 97 08/14/21 15:02 Oxygen Delivery Method 08/14/21 15:02 Course <GONZALEZ Spaulding - Last Filed: 08/14/21 19:32> Orders Ordered: Discontinued Medications Acetaminophen (Acetaminophen 325 Mg Tablet) 650 mg PO NOW ONE Stop: 08/14/21 15:58 Last Admin: 08/14/21 16:25 Dose: 650 mg Documented By: JUHI Doxycycline Hyclate (Doxycycline Hyclate 100 Mg Tablet) 100 mg PO NOW ONE Stop: 08/14/21 15:58 Last Admin: 08/14/21 16:27 Dose: 100 mg Documented By: JUHI Vital Signs Vital signs: Vital Signs - 8 hr 08/14/21 15:02 08/14/21 16:52 Temperature 99.1 F Pulse Rate 74 93 H Respiratory Rate 22 22 Blood Pressure 171/91 H 130/88 Pulse Oximetry 97 95 Oxygen Delivery Method Room Air Room Air Oxygen Flow Rate 0 <Divina Queen MD - Last Filed: 08/18/21 08:54> Orders Ordered: Discontinued Medications Acetaminophen (Acetaminophen 325 Mg Tablet) 650 mg PO NOW ONE Stop: 08/14/21 15:58 Last Admin: 08/14/21 16:25 Dose: 650 mg Documented By: SB Doxycycline Hyclate (Doxycycline Hyclate 100 Mg Tablet) 100 mg PO NOW ONE Stop: 08/14/21 15:58 Last Admin: 08/14/21 16:27 Dose: 100 mg Documented By: SB Vital Signs Vital signs: Vital Signs - 8 hr 08/14/21 15:02 08/14/21 16:52 Temperature 99.1 F Pulse Rate 74 93 H Respiratory Rate 22 22 Blood Pressure 171/91 H 130/88 Pulse Oximetry 97 95 Oxygen Delivery Method Room Air Room Air Oxygen Flow Rate 0 MDM - Extremity Injury (Upper) <GONZALEZ Spaulding - Last Filed: 08/14/21 19:32> Lab Data Labs: Lab Results 08/14/21 Range/Units 15:12 SARS-CoV-2 (PCR) Negative (Negative) Imaging Data Extremity x-ray #1: Radiologist's Impression: Radiology report did not carry over, x-ray three-view of right hand shows multifocal osteoarthritis, CPPD arthropathy, no foreign body, no osseous abnormality other than his degenerative joint. MDM Narrative Medical decision making narrative: This is a pleasant 85-year-old male who is quite hard of hearing and presents to the emergency department for worsening swelling, pain, and redness to the dorsum of his right hand which started approximately four days ago. Patient was seen in a walk-in clinic two days ago had an x-ray of his right hand, unable to document the report finding however there was no osseous abnormality, the radiologist reported multifocal osteoarthritis of the right hand with a CPPD arthropathy. Did not show any foreign body, fluid collection, or subcutaneous gas. Patient had worsening redness and swelling since his walk-in clinic visit two days ago, came to the emergency department today complaining of pain. This looks most like cellulitis, and it appears isolated to the dorsum of his hand. He had range of motion deficit with extension of his wrist, discussed treating him with doxycycline for coverage of MRSA. He was given strict return precautions for any worsening of this. Patient does have a history of gout however he has never had gout flare in his upper extremities, states is primarily in his left lower extremity if he has it. He denies any recent trauma, yard work, or any injury to his right hand. States that his tetanus is up-to-date. Differential includes tenosynovitis, gout, cellulitis. Patient was given strict return precautions, discussed wearing a wrist splint but due to patient ambulating with a walker, this became cumbersome and patient did not feel as safe and steady plus a cause pressure on the dorsum his hand where he has pain. Encouraged patient to start his antibiotic, injury as two doses today and two doses tomorrow and to return to the emergency department if he has any worsening of his symptoms between now and then. He was treated with Tylenol, diclofenac gel, encouraged to stay hydrated, and follow-up closely with his PCP or return here for another evaluation. Patient is appropriate and amenable to discharge home. Vital signs are stable on repeat examination is unremarkable. Patient has been informed of results. Patient has been given strict return to ER precautions for any new or worsening symptoms. Patient understands to follow up closely with outpatient providers as instructed. Patient understands plan and agrees to discharge home. All questions and concerns answered at this time. <Divina Queen MD - Last Filed: 08/18/21 08:54> Lab Data Labs: Lab Results 08/14/21 Range/Units 15:12 SARS-CoV-2 (PCR) Negative (Negative) Discharge Plan Departure Patient Disposition: Home Clinical Impression: Cellulitis of right wrist Instructions: Cellulitis Activity Restrictions/Additional Instructions: *You have been diagnosed with cellulitis in your right hand, this is an infection of the skin. Please take this antibiotic morning and night for the next seven days with food and water. You may use topical diclofenac gel for pain, use the wrist splint if it is helpful. If this redness and swelling extends beyond this line significantly, please come back to the emergency department for another evaluation. Over the next 24 hours this may get worse as your antibiotic starts to work, if it gets significantly worse, please come back otherwise it should start to get better after 24 hours. Please use Tylenol as needed for your pain, you may use cool compresses if it is helpful. Please be safe at home using a walker as your 1st priority, if the wrist splint affects your ability to use a walker, please do not use it. Please call [phone] to establish care with one of the [facility] primary care providers if you wish to switch from Dr. Felix. Ask to see any of the other providers if they are available and ask who you can switch to. Please follow up with them in the future but return to the ER if this gets worse. *What to do: *Please continue to take your regular medications as directed. [x] New medication prescriptions sent to your pharmacy: [[facility] ] [ ] New medication written as a paper prescription [ ] No new medications given *Please follow up with your primary care provider in 2-3 days, call for an appointment. Let them know you were seen in the Emergency Department and that we asked that you be seen for follow-up. We will electronically transmit a record of today's note if your PCP is in our system *If you do not have a primary care provider *Return to Emergency Department if you should have any new, worsening or concerning symptoms, such as [fever greater than 101F, chills, worsening pain, persistent vomiting or other bothersome symptoms] Prescriptions: New doxycycline hyclate 100 mg tablet 100 mg PO BID 7 Days Qty: 14 0RF diclofenac sodium 1 % gel 2 g topical QID PRN (Reason: pain) Qty: 100 0RF Rx Instructions: apply to single elbow, wrist or hand; for hand includes palm/fingers/back of hand Cepacol Sore Throat (rachel-men) 15-3.6 mg lozenge 1 kirt mucous membrane Q2-4H PRN (Reason: sore throat) Qty: 16 0RF guaifenesin [Mucinex] 600 mg tablet extended release 12hr 600 mg PO BID PRN (Reason: cough) Qty: 14 0RF No Action famotidine [Pepcid] 20 mg tablet 20 mg PO BID Qty: 30 0RF Zyrtec 10 mg capsule 10 mg PO DAILY Qty: 20 0RF azithromycin 250 mg tablet See Rx Instructions PO .COMPLEX Qty: 6 0RF Rx Instructions: take 500 mg today (day 1), then 250 mg for 4 days (days 2-5) PO benzonatate 100 mg capsule 100 mg PO BID PRN (Reason: cough) Qty: 30 0RF fluticasone propionate [Flonase Allergy Relief] 50 mcg/actuation spray,suspension 2 spray intranasal DAILY Qty: 18.2 0RF Rx Instructions: administer into each nostril rosuvastatin 10 mg tablet 10 mg PO DAILY sertraline 50 mg tablet 50 mg PO DAILY cephalexin 500 mg capsule 500 mg PO QID Qty: 10 0RF oxycodone 5 mg capsule 5 mg PO Q4H PRN (Reason: painful procedure) Qty: 7 0RF lisinopril-hydrochlorothiazide 20-12.5 mg tablet 1 tab PO DAILY Label Comments: TK 1 T PO QD amlodipine 5 mg tablet 5 mg PO DAILY Label Comments: TK 1 T PO QD aspirin 81 mg Tablet,Delayed Release (Dr/Ec) 81 mg PO DAILY allopurinol 300 mg tablet 300 mg PO DAILY Label Comments: TK 1 T PO QD Referrals: Duke Felix MD [Primary Care Provider] - Visit Report Forms: Patient Portal/API <Divina Queen MD - Last Filed: 08/18/21 08:54> Cosign ED Attending Cosignature Attestation: I was immediately available in the department for consultation throughout this patient's visit. I agree with documentation as above. Divina Queen MD
[2021-08-14] MEDS: ACETAMINOPHEN 325 MG TABLET 650 MG PO (16:25)
[2021-08-14] MEDS: DOXYCYCLINE HYCLATE 100 MG TABLET PO (16:27)
[2021-08-14 16:52] VITALS: BP 130/88; PULSE 93; RESP 22; O2SAT 95
== END 2021-08-14 16:50 | disposition home or self-care (01) ==
PROVIDERS: Emergency Medicine; Emergency Provider Nurse Practitioner Critical Care Medicine; Family Provider Internal Medicine; PCP Internal Medicine
DX: L03.113 Cellulitis of right upper limb (principal); Z20.822 Contact with and (suspected) exposure to COVID-19
CPT/HCPCS: 87635; 99283; C9803

== ENCOUNTER → 2022-02-04 15:07 | Outpatient (CLI) | payer MEDICARE, OTHER, SELFPAY ==
[2022-02-04 17:11] LABS: Influenza A - CEPHEID Flu A NEGATIVE (NEGATIVE); Influenza B - CEPHEID Flu B NEGATIVE (NEGATIVE); Respiratory Syncytial Virus Negative (Negative)
[2022-02-04 17:28] LABS: COVID-19 CEPHEID 4-PLEX PCR Negative (Negative)
== END ==
PROVIDERS: Family Provider Internal Medicine; PCP Internal Medicine; Visit Provider Physician Assistant Medical
DX: R05.1 Acute cough (principal)
CPT/HCPCS: 0241U

== ENCOUNTER → 2022-02-04 16:16 | Outpatient (CLI) | payer MEDICARE, OTHER, SELFPAY ==
--- NOTE | 2022-02-04 16:17 | DI.RAD.S_ITS ---
PROCEDURE: XR CHEST 2V INDICATIONS: persistent cough TECHNIQUE: 2 views of the chest were acquired. COMPARISON: [facility], CR, XR CHEST 1V, 01/22/2020, 11:39. [facility], CR, XR CHEST 2V, 04/03/2021, 17:02. FINDINGS: Surgical changes and devices: None. Lungs and pleura: Central pulmonary vascular congestion and interstitial prominence. No pleural effusions or pneumothorax. Mediastinum: Mediastinal contours are normal. Heart is mildly enlarged. Bones and chest wall: No suspicious bony abnormalities. Soft tissues appear unremarkable. IMPRESSION: Central pulmonary vascular chest and interstitial prominence concerning for CHF. Dictated by: Droys Bowen MD, PhD on 02/04/2022 at 16:42 Approved by: Dorys Bowen MD, PhD on 02/04/2022 at 16:44
== END ==
PROVIDERS: Family Provider Internal Medicine; PCP Internal Medicine; Referring Provider Physician Assistant Medical; Visit Provider Physician Assistant Medical
DX: R05.3 Chronic cough (principal); R05.1 Acute cough
CPT/HCPCS: 0241U; 71046

== ENCOUNTER → 2022-04-04 14:31 | Outpatient (CLI) | payer MEDICARE, OTHER, SELFPAY ==
[2022-04-04 16:17] LABS: Add Manual Diff / Slide Review NO; Basophils Absolute Auto 0 /uL (0-100); Basophils Percent Auto 0.6 % (0-2); Eosinophils Absolute Auto 400 /uL (0-450); Eosinophils Percent Auto 7.9 % (2-4); Hematocrit 38.1 % (41-53); Hemoglobin 12.7 g/dL (13.5-17.5); Lymphocytes Absolute Auto 800 /uL (1100-4500); Lymphocytes Percent Auto 14.9 % (25-40); Mean Corpuscular HGB Conc 33.5 % (30-36); Mean Corpuscular Hemoglobin 28.3 PG (26-34); Mean Corpuscular Volume 84.6 fL (80-100); Monocytes Absolute Auto 500 /uL (0-900); Monocytes Percent Auto 9.8 % (3-14); Neutrophils Absolute Auto 3600 /uL (1500-7000); Neutrophils Percent Auto 66.8 % (50-75); Platelet Count 134 X10^3/uL (150-400); Red Cell Distribution Width 13.7 % (11.6-14.8); White Blood Cell Count 5.5 X10^3/uL (4.5-11.0)
[2022-04-04 16:29] LABS: Alanine Aminotransferase 20 IU/L (<50); Albumin 3.5 g/dL (3.5-5.0); Albumin Globulin Ratio 1.4 (1.0-2.8); Alkaline Phosphatase 73 U/L (38-126); Aspartate Aminotransferase 20 IU/L (17-59); BUN Creatinine Ratio 17.9 (6-22); Bilirubin Total 0.5 mg/dL (0.2-1.3); Blood Urea Nitrogen 25 mg/dL (9-20); Carbon Dioxide 22 mmol/L (22-32); Chloride 105 mmol/L (98-107); Cholesterol 142 mg/dL (140-199); Estimated Glomerular Filt Rate 49 mL/min (>60); Globulin 2.5 g/dL (1.7-4.1); Glucose 174 mg/dL (80-110); HDL Cholesterol 36 mg/dL (40-60); HEMOLYSIS < 15 (0-50); LDL Cholesterol Calculated 69 mg/dL (<100); Potassium 4.5 mmol/L (3.4-5.1); Sodium 137 mmol/L (137-145); Triglycerides 185 mg/dL (35-150)
[2022-04-04 16:31] LABS: Hemoglobin A1C% w Est Avg Glu 7.9 % (4.0-6.0)
== END ==
PROVIDERS: Family Provider Internal Medicine; PCP Family Medicine; Referring Provider Family Medicine; Visit Provider Family Medicine
DX: E78.5 Hyperlipidemia, unspecified (principal); I50.9 Heart failure, unspecified; I10 Essential (primary) hypertension
CPT/HCPCS: 36415; 80053; 80061; 83036; 85025

== ENCOUNTER → 2022-04-14 06:36 | Outpatient (CLI) | payer MEDICARE, OTHER, SELFPAY ==
--- NOTE | 2022-04-14 06:38 | DI.ECHO.S_ITS ---
[facility] +---------+ : : [address] [place] : : : : [id number] : : : : Phone: [phone]+ Echocardiogram Report + + :Name: MACARENA PIKE Study Date: 04/14/2022 Height: 76 in : :[facility] ReadingLocation: Weight: 230 lb : : Gender: Male BSA: 2.4 m2 : :: 1935 Age: 86 yrs BP: 180/98 mmHg: :Reason For Study: CONGESTIVE HEART FAILURE : :Ordering Physician: LEROY VELÁZQUEZPerformed By: Meghana Talbot : :Referring: LEROY VELÁZQUEZ : + + Interpretation Summary Mild concentric left ventricular hypertrophy with ejection fraction 55-60%. There is no hemodynamically significant valvular aortic stenosis. Mild to moderate mitral annular calcification. Mild mitral regurgitation. Mild tricuspid regurgitation. The ascending aorta is mild-moderately enlarged. Procedure: A two-dimensional transthoracic echocardiogram with color flow and Doppler was performed. The study quality was technically adequate. There is no prior echocardiogram noted for this patient. The patient had occasional PACs during the exam. The heart rate ranged between 65-95 bpm during the study. Left Ventricle: There is mild concentric left ventricular hypertrophy. The ejection fraction is estimated to be 55-60%. There are no focal wall motion abnormalities. Right Ventricle: The right ventricle is borderline dilated. Right ventricular systolic function is at the lower limits of normal. Atria: The left atrial size is normal. Right atrial size is normal. There is no Doppler evidence for an interatrial shunt. Mitral Valve: There is mild to moderate mitral annular calcification. The mitral valve leaflets are slightly calcified. There is mild mitral regurgitation. Aortic Valve: The aortic valve is moderately calcified. The aortic valve is trileaflet. There is mildly reduced leaflet mobility. The peak aortic velocity is 1.8 m/sec. The aortic valve mean gradient is 7 mmHg. There is no hemodynamically significant valvular aortic stenosis. No aortic regurgitation is present. Tricuspid Valve: The tricuspid valve is normal in structure and function. There is mild tricuspid regurgitation. The right ventricular systolic pressure is estimated to be at least 27 mmHg based on an estimated right atrial pressure of 8 mm Hg. Pulmonic Valve: The pulmonic valve leaflets are thin and pliable; valve motion is normal. There is trace pulmonic regurgitation. Great Vessels: The aortic root is mildly dilated. The ascending aorta is mild-moderately enlarged. The IVC is dilated (diameter is greater than 2.1 cm) yet it collapses greater than 50% with a sniff. This suggests a right atrial pressure of 8 mm Hg. Pericardium/ Pleura There is no pericardial effusion. There is no pleural effusion. MMode/2D Measurements & Calculations LVIDd: 5.1 cm LVOT diam: 2.4 cm LVIDs: 3.7 cm Ao root diam: 4.1 cm FS: 27.8 % asc Aorta Diam: 4.4 cm IVSd: 1.1 cm Ao Arch Diam (Prox Trans): 3.3 cm LVPWd: 0.99 cm LV callaway. diameter/BSA (cm/m^2): 2.2 LV sys. diameter/BSA (cm/m^2): 1.6 LA A2 area: 22.2 cm2 RA long axis: 5.9 cm LA A4 area: 19.1 cm2 RA area: 20.0 cm2 LA length (vol): 5.9 cm RA vol: 57.4 ml LA vol: 60.9 ml RA : 24.4 ml/m2 LA vol index: 25.9 ml/m2 IVC diam: 2.5 cm RVD1 (basal): 4.1 cm RVD2 (mid): 3.9 cm TAPSE: 1.6 cm Doppler Measurements & Calculations Ao V2 max: 181.0 cm/sec LVOT Max Luis: 118.5 cm/sec Ao V2 mean: 117.7 cm/sec LV V1 max P.6 mmHg Ao max P.1 mmHg LV V1 VTI: 24.4 cm Ao mean P.9 mmHg MARKUS(I,D): 3.2 cm2 Ao V2 VTI: 34.4 cm MARKUS(V,D): 2.9 cm2 sev ratio: 0.71 MARKUS indexed to BSA (cm^2/m^2): 1.3 MV E max luis: 61.1 cm/sec TR max luis: 215.5 cm/sec MV A max luis: 64.8 cm/sec TR max P.6 mmHg MV E/A: 0.94 PA V2 max: 90.5 cm/sec Med Peak E' Luis: 5.8 cm/sec PA V2 mean: 66.7 cm/sec E/E' med: 10.5 PA mean P.9 mmHg Lat Peak E' Luis: 5.6 cm/sec PA pr(Accel): 37.9 mmHg E/E' lat: 10.9 E/e' average: 10.7 MV dec time: 0.28 sec SV(LVOT): 108.7 ml Electronically signed by: Jairo Lazaro on Reading Physician:04/14/2022 11:34 AM
== END ==
PROVIDERS: Family Provider Internal Medicine; PCP Family Medicine; Referring Provider Family Medicine; Visit Provider Family Medicine
DX: I08.1 Rheumatic disorders of both mitral and tricuspid valves (principal); I50.9 Heart failure, unspecified; I77.810 Thoracic aortic ectasia; I77.89 Other specified disorders of arteries and arterioles
CPT/HCPCS: 93306

== ENCOUNTER → 2022-09-17 08:53 | Outpatient (CLI) | payer MEDICARE, OTHER, SELFPAY ==
[2022-09-17 10:21] LABS: BUN Creatinine Ratio 16.3 (6-22); Blood Urea Nitrogen 24 mg/dL (9-20); Carbon Dioxide 26 mmol/L (22-32); Chloride 104 mmol/L (98-107); Estimated Glomerular Filt Rate 46 mL/min (>60); Glucose 142 mg/dL (80-110); HEMOLYSIS < 15 (0-50); Potassium 4.5 mmol/L (3.4-5.1); Sodium 136 mmol/L (137-145)
[2022-09-18 08:10] LABS: x Labcorp Estim. Avg Glu (eAG) 163 mg/dL (.); x Labcorp Hemoglobin A1c 7.3 % (4.8-5.6)
== END ==
PROVIDERS: Family Provider Family Medicine; PCP Family Medicine; Referring Provider Family Medicine; Visit Provider Family Medicine
DX: I10 Essential (primary) hypertension (principal); N18.30 Chronic kidney disease, stage 3 unspecified; E11.9 Type 2 diabetes mellitus without complications
CPT/HCPCS: 36415; 80048; 83036

== ENCOUNTER → 2022-12-17 13:47 | Outpatient (CLI) | payer MEDICARE, OTHER, SELFPAY ==
--- NOTE | 2022-12-17 13:55 | DI.RAD.S_ITS ---
PROCEDURE: XR CERVICAL SPINE 2V OR 3V INDICATIONS: neck pain TECHNIQUE: 3 view(s) of the cervical spine were acquired. COMPARISON: None. FINDINGS: Bones: No fractures or dislocations to the T1 level. From C3 through C7 there are severe degenerative changes of the discs with 6 mm anterolisthesis of C4-5. Anterior osteophytes are seen at multiple levels. The lateral masses of C1 appear intact on the odontoid view. No suspicious bony lesions. Soft tissues: No prevertebral soft tissue swelling. IMPRESSION: Severe multilevel degenerative changes of the cervical spine. Dictated by: Damián Perez M.D. on 12/17/2022 at 15:26 Approved by: Damián Perez M.D. on 12/17/2022 at 15:28
== END ==
PROVIDERS: Family Provider Family Medicine; PCP Family Medicine; Referring Provider Family Medicine; Visit Provider Family Medicine
DX: M54.2 Cervicalgia (principal)
CPT/HCPCS: 72040

== ENCOUNTER → 2023-04-17 15:41 | Outpatient (CLI) | payer MEDICARE, OTHER, SELFPAY | PROVIDERS: Family Provider Family Medicine; PCP Family Medicine; Visit Provider Physician Assistant | DX: L03.90 Cellulitis, unspecified (principal) | CPT/HCPCS: 87070; 87075; 87077; 87147; 87186; 87205 ==

== ENCOUNTER → 2023-05-11 11:35 | Outpatient (ROUT) | payer MEDICARE, OTHER, SELFPAY | PROVIDERS: Family Provider Family Medicine; PCP Family Medicine; Visit Provider Dermatology | DX: R21 Rash and other nonspecific skin eruption (principal) | CPT/HCPCS: 87070; 87075; 87205 ==

== ENCOUNTER → 2023-06-22 15:19 | Outpatient (CLI) | payer MEDICARE, OTHER, SELFPAY ==
[2023-06-22 18:32] LABS: BUN Creatinine Ratio 20.8 (6-22); Blood Urea Nitrogen 32 mg/dL (9-20); Calcium 9.7 mg/dL (8.4-10.2); Carbon Dioxide 24 mmol/L (22-32); Chloride 108 mmol/L (98-107); Estimated Glomerular Filt Rate 44 mL/min (>60); Glucose 101 mg/dL (80-110); HEMOLYSIS < 15 (0-50); Potassium 4.4 mmol/L (3.4-5.1); Sodium 137 mmol/L (137-145)
[2023-06-22 18:47] LABS: Hemoglobin A1C% w Est Avg Glu 7.1 % (4.0-6.0)
== END ==
PROVIDERS: Family Provider Family Medicine; PCP Family Medicine; Referring Provider Family Medicine; Visit Provider Family Medicine
DX: E11.9 Type 2 diabetes mellitus without complications (principal); N18.30 Chronic kidney disease, stage 3 unspecified; I50.9 Heart failure, unspecified
CPT/HCPCS: 36415; 80048; 83036

== ENCOUNTER → 2023-07-08 17:11 | Outpatient (CLI) | payer MEDICARE, OTHER, SELFPAY ==
--- NOTE | 2023-07-08 17:13 | DI.RAD.S_ITS ---
PROCEDURE: XR KNEE LT 3V INDICATIONS: fall on knees 1 week ago, bruising left medial TECHNIQUE: 3 views of the knee were acquired. COMPARISON: [facility], SAMEER, XR KNEE LT 3V, 07/22/2019, 9:58. FINDINGS: Bones: Stable left knee arthroplasty postsurgical changes. No fractures or dislocations. No suspicious bony lesions. Soft tissues: Small suprapatellar joint effusion. joint effusion. No suspicious soft tissue calcifications. IMPRESSION: No acute bony abnormality or significant effusion. Dictated by: Dorys Bowen MD, PhD on 07/09/2023 at 9:13 Approved by: Dorys Bowen MD, PhD on 07/09/2023 at 9:13
--- NOTE | 2023-07-08 17:13 | DI.RAD.S_ITS ---
PROCEDURE: XR KNEE RT 3V INDICATIONS: fall on knees 1 week ago, bruising left medial TECHNIQUE: 3 views of the knee were acquired. COMPARISON: [facility], CR, XR KNEE RT 3V, 07/19/2019, 14:14. FINDINGS: Bones: Stable right knee arthroplasty postsurgical changes. No fractures or dislocations. No suspicious bony lesions. Soft tissues: No joint effusion. No suspicious soft tissue calcifications. IMPRESSION: No acute bony abnormality or significant effusion. Dictated by: Dorys Bowen MD, PhD on 07/09/2023 at 9:11 Approved by: Dorys Bowen MD, PhD on 07/09/2023 at 9:12
== END ==
PROVIDERS: Family Provider Family Medicine; PCP Family Medicine; Referring Provider Physician Assistant; Visit Provider Physician Assistant
DX: S89.90XA Unspecified injury of unspecified lower leg, initial encounter (principal); R26.81 Unsteadiness on feet; M25.462 Effusion, left knee; Z96.652 Presence of left artificial knee joint
CPT/HCPCS: 73562

== ENCOUNTER → 2023-09-14 14:08 | Outpatient (CLI) | payer MEDICARE, OTHER, SELFPAY ==
[2023-09-14 15:36] LABS: Hemoglobin A1C% w Est Avg Glu 6.5 % (4.0-6.0)
[2023-09-14 15:56] LABS: BUN Creatinine Ratio 21.8 (6-22); Blood Urea Nitrogen 29 mg/dL (9-20); Calcium 9.1 mg/dL (8.4-10.2); Carbon Dioxide 23 mmol/L (22-32); Chloride 106 mmol/L (98-107); Estimated Glomerular Filt Rate 52 mL/min (>60); Glucose 103 mg/dL (80-110); HEMOLYSIS < 15 (0-50); Potassium 4.1 mmol/L (3.4-5.1); Sodium 137 mmol/L (137-145)
== END ==
PROVIDERS: Family Provider Family Medicine; PCP Family Medicine; Referring Provider Family Medicine; Visit Provider Family Medicine
DX: E11.9 Type 2 diabetes mellitus without complications (principal); N18.30 Chronic kidney disease, stage 3 unspecified
CPT/HCPCS: 36415; 80048; 83036

== ENCOUNTER → 2024-03-28 14:36 | Outpatient (CLI) | payer MEDICARE, OTHER, SELFPAY ==
[2024-03-28 15:11] LABS: Add Manual Diff / Slide Review NO; Basophils Absolute Auto 0 /uL (0-100); Basophils Percent Auto 0.8 % (0-2); Eosinophils Absolute Auto 100 /uL (0-450); Eosinophils Percent Auto 2.9 % (2-4); Hematocrit 40.3 % (41-53); Hemoglobin 13.4 g/dL (13.5-17.5); Lymphocytes Absolute Auto 700 /uL (1100-4500); Lymphocytes Percent Auto 16.1 % (25-40); Mean Corpuscular HGB Conc 33.2 % (30-36); Mean Corpuscular Hemoglobin 29.9 PG (26-34); Mean Corpuscular Volume 89.8 fL (80-100); Monocytes Absolute Auto 400 /uL (0-900); Monocytes Percent Auto 10.1 % (3-14); Neutrophils Absolute Auto 3000 /uL (1500-7000); Neutrophils Percent Auto 70.1 % (50-75); Platelet Count 125 X10^3/uL (150-400); Red Blood Cell Count 4.48 X10^6/uL (4.5-5.9); Red Cell Distribution Width 14.4 % (11.6-14.8); White Blood Cell Count 4.3 X10^3/uL (4.5-11.0)
[2024-03-28 15:37] LABS: Alanine Aminotransferase 21 IU/L (<50); Albumin 4.3 g/dL (3.5-5.0); Albumin Globulin Ratio 1.7 (1.0-2.8); Alkaline Phosphatase 70 U/L (38-126); Aspartate Aminotransferase 24 IU/L (17-59); BUN Creatinine Ratio 20.8 (6-22); Bilirubin Total 0.6 mg/dL (0.2-1.3); Blood Urea Nitrogen 33 mg/dL (9-20); Calcium 9.8 mg/dL (8.4-10.2); Carbon Dioxide 24 mmol/L (22-32); Chloride 108 mmol/L (98-107); Estimated Glomerular Filt Rate 42 mL/min (>60); Globulin 2.5 g/dL (1.7-4.1); Glucose 103 mg/dL (80-110); HEMOLYSIS < 15 (0-50); Potassium 4.6 mmol/L (3.4-5.1); Sodium 139 mmol/L (137-145); Total Protein 6.8 g/dL (6.3-8.2)
== END ==
PROVIDERS: Family Provider Family Medicine; PCP Family Medicine; Referring Provider Family Medicine; Visit Provider Family Medicine
DX: Z00.00 Encounter for general adult medical examination without abnormal findings (principal); I13.0 Hypertensive heart and chronic kidney disease with heart failure and stage 1 through stage 4 chronic kidney disease, or unspecified chronic kidney disease; N18.30 Chronic kidney disease, stage 3 unspecified; I50.9 Heart failure, unspecified; R63.4 Abnormal weight loss
CPT/HCPCS: 36415; 80053; 83036; 85025

== ENCOUNTER → 2024-11-08 13:47 | Outpatient (CLI) | payer MEDICARE, OTHER, SELFPAY ==
--- NOTE | 2024-11-08 13:48 | DI.RAD.S_ITS ---
PROCEDURE: XR KNEE RT 3V INDICATIONS: pain TECHNIQUE: 3 views of the knee were acquired. COMPARISON: [facility], CR, XR KNEE LT 3V, 07/08/2023, 17:13. FINDINGS: Bones: There are no osseous abnormalities Joints: Total knee prostheses remains anatomically aligned without loosening. Small effusion noted. Soft tissues: No soft tissue abnormality. IMPRESSION: Small effusion Dictated by: Xavier Juarez M.D. on 11/09/2024 at 11:56 Approved by: Xavier Juarez M.D. on 11/09/2024 at 11:57
--- NOTE | 2024-11-08 13:48 | DI.RAD.S_ITS ---
PROCEDURE: XR KNEE LT 3V INDICATIONS: pain TECHNIQUE: 3 views of the knee were acquired. COMPARISON: [facility], CR, XR KNEE LT 3V, 07/08/2023, 17:13. FINDINGS: Bones: There are no osseous abnormalities. Joints: Total knee prosthesis is anatomically aligned. Moderate effusion noted. Soft tissues: Normal IMPRESSION: Moderate effusion. Knee prostheses unremarkable. Dictated by: Xavier Juarez M.D. on 11/09/2024 at 11:55 Approved by: Xavier Juarez M.D. on 11/09/2024 at 11:56
[2024-11-08 14:18] LABS: Hemoglobin A1C% w Est Avg Glu 6.6 % (4.0-6.0)
[2024-11-08 14:20] LABS: Blood Urea Nitrogen 31 mg/dL (9-20); Calcium 9.8 mg/dL (8.4-10.2); Carbon Dioxide 24 mmol/L (22-32); Chloride 107 mmol/L (98-107); Estimated Glomerular Filt Rate 46 mL/min (>60); Glucose 129 mg/dL (70-99); HEMOLYSIS < 15 (0-50); Potassium 4.3 mmol/L (3.4-5.1); Sodium 140 mmol/L (137-145)
== END ==
PROVIDERS: Family Provider Family Medicine; PCP Family Medicine; Referring Provider Family Medicine; Visit Provider Family Medicine
DX: E11.9 Type 2 diabetes mellitus without complications (principal); M25.569 Pain in unspecified knee; G89.29 Other chronic pain; N18.30 Chronic kidney disease, stage 3 unspecified; M25.462 Effusion, left knee; M25.461 Effusion, right knee; Z96.652 Presence of left artificial knee joint
CPT/HCPCS: 36415; 73562; 80048; 83036

== ENCOUNTER 2024-11-23 16:13 | Emergency (ER) | payer MEDICARE, SELFPAY ==
[2024-11-23] VITALS (9 sets, daily range): BP systolic 133–165; BP diastolic 86–106; PULSE 74–115; RESP 17–21; TEMP 36.8; O2SAT 94–98; BMI 21.2
--- NOTE | 2024-11-23 16:46 | DI.CT.S_ITS ---
PROCEDURE: CT TRAUMA CHEST ABDOMEN PELVIS INDICATIONS: fall with increasing Left sided pain TECHNIQUE: MDCT axial chest images were obtained with IV contrast in the arterial phase. Maximum intensity projections and multiplanar reformats were obtained. MDCT axial abdomen and pelvis images were obtained with IV contrast in the portal venous phase. Multiplanar reformats were obtained. Optional delayed phase scanning may also be obtained Advanced techniques were used to lower patient radiation exposure. COMPARISON: [facility], CT, CT CHEST ABD PEL W CON, 11/20/2017, 16:19. [facility], CT, CT HEAD/BRAIN WO CON, 11/23/2024, 16:55. [facility], CT, CT CERVICAL SPINE WO CON, 11/23/2024, 16:55. FINDINGS Image Quality: There is streak artifact seen through the level of the shoulders. There is also streak artifact seen through the upper abdomen. Chest: Lungs and pleura: No pneumothorax or hemothorax. No pulmonary contusions or lacerations. Dependent atelectasis can be seen. Within the left lower lobe inferiorly and medially, there is a nodule seen measuring 20 x 16 mm. Vascular: No dissection or pseudoaneurysm. No incidental central pulmonary embolism. No hemopericardium. Mediastinum: No mediastinum hematoma. No suspicious mass or lymph nodes. No actionable thyroid nodules. Chest wall: In this patient with this given history, scrutiny is given to the left ribs. No acute left rib fractures are seen. Remote rib fractures are seen. The Intact clavicles, scapula, and glenohumeral joint. Thoracic spine: No acute fracture or traumatic subluxation. ABDOMEN and PELVIS: Liver: No laceration or capsular hematoma. A central liver cyst is seen. Gallbladder: Unremarkable. Biliary system: Non-dilated. Pancreas: Unremarkable. Spleen: No laceration or capsular hematoma. Adrenals: There is a right adrenal nodule seen measuring 36 x 30 mm, as on series 2, image 143. There is a 19 mm left adrenal nodule, as on series 2, image 162. Kidneys: No contrast extravasation or hydronephrosis. No solid masses. Vessels and lymph nodes: No pathology lymph nodes by size criteria. No dissection or aneurysm. No retroperitoneal hematoma. Bowel and peritoneum: No suspicious region of mesenteric hemorrhage or hemoperitoneum. No bowel obstruction. Pelvis: Unremarkable bladder. Prostatectomy. Pelvic ring and femurs: No pelvic ring disruption. No hip fractures. Lumbar spine: No acute fracture or traumatic subluxation. Moderate dextroconvex lumbar scoliosis is seen. Significant lumbar spine degenerative changes are seen. Abdominal wall: No drainable fluid collection or hematoma. IMPRESSION: No acute posttraumatic abnormality is seen. No acute rib fracture or pneumothorax. Remote rib fractures can again be seen, however. There is a 2 cm left lower lobe pulmonary nodule seen. This is similar to 2018 and regarded to be benign Additional findings: Stable liver cyst Bilateral adrenal nodules, similar compared to 2018. Moderate dextroconvex lumbar scoliosis Lumbar spine degenerative change Prostatectomy Dictated by: Luis Carlos Soni M.D. on 11/23/2024 at 16:51 Approved by: Luis Carlos Soni M.D. on 11/23/2024 at 16:58
--- NOTE | 2024-11-23 16:48 | ED.FALL ---
HPI - Fall General Chief Complaint: Fall Stated Complaint: Fell last wk wont go into detail Time Seen by Provider: 11/23/24 16:35 Source: patient Mode of arrival: Wheelchair History of Present Illness HPI Narrative: Patient brought here by his son. Complains of ground level fall 5 days ago at home. He states he was feeding his dog. After he placed the food down on the back deck his left knee gave out and he fell backwards down 3 steps off the deck landing on concrete, back of his head. He denies any loss of consciousness. No nausea or vomiting. Patient states he is on a blood thinner but does not recall the name of it. Denies any shoulder pain limb pain neck pain, no abdominal pain chest pain back pain. Patient states this is not the 1st time he has fallen. He has had multiple falls in the past. Related Data Previous Rx's ?Medication ?Instructions ?Recorded amlodipine 10 mg tablet (Norvasc) 10 mg PO DAILY blood pressure #90 08/01/24 tabs empagliflozin 10 mg tablet 10 mg PO DAILY blood sugars and 09/19/24 (Jardiance) kidneys #90 tabs lisinopril 40 mg tablet 40 mg PO DAILY blood pressure #90 11/08/24 tabs rosuvastatin 10 mg tablet 10 mg PO DAILY cholesterol #90 tabs 11/08/24 Allergies Allergy/AdvReac Type Severity Reaction Status Date / Time No Known Drug Allergies Allergy Verified 11/23/24 16:32 Review of Systems Review of Systems Narrative: GENERAL: Negative chills, fatigue, malaise, fever, sweats. HEENT: Negative sinus pain, ear pain, sore throat RESPIRATORY: Negative dyspnea, cough CARDIOVASCULAR: Negative chest pain, palpitations GASTROINTESTINAL: Negative vomiting, nausea, abdominal pain : Negative dysuria, frequency, hematuria MUSCULOSKELETAL: Positive muscle or bony pain SKIN: Negative rash, skin lesions NEUROLOGIC: Negative weakness, numbness ROS Unobtainable: All systems reviewed & are unremarkable except as noted in HPI and below Patient History Medical History Encounter for subsequent annual wellness visit (AWV) in Medicare patient Unsteady gait when walking CKD (chronic kidney disease) stage 3, GFR 30-59 ml/min Type 2 diabetes mellitus without complication, with no history of insulin use Hyperlipidemia Benign essential HTN CHF (congestive heart failure) Hearing loss Vertigo Cellulitis Peptic ulcer disease DVT (deep venous thrombosis) Prostate cancer Degenerative cervical disc Chronic kidney disease B12 deficiency Allergic rhinitis Gouty arthropathy Osteoarthritis Arachnoid cyst Hypertension Concussion Surgical History Hx of rotator cuff surgery Hx of radical prostatectomy Hx of appendectomy History of knee replacement Hx of laminectomy Hx of thumb surgery No pertinent past surgical history alcohol intake frequency: holidays/special occasions only Exam Narrative Exam Narrative: GENERAL: in no distress, not toxic not dyspneic HEAD: Normocephalic. Nontender scalp and skull. No crepitus or step-off. No contusion on occipital scalp but there is mild tenderness. EYES: Pupils equal round ENT: Mucous membranes moist. NECK: Trachea midline. No midline tenderness or step-off of the cervical thoracic or lumbar spine CARDIOVASCULAR: Regular rate and rhythm RESPIRATORY: Clear to auscultation. Breath sounds equal bilaterally. No wheezes, rales, or rhonchi. Mild left rib tenderness but no crepitus GASTROINTESTINAL: Abdomen soft, non-tender EXTREMITIES: No gross deformities. BACK: No flank tenderness. NEURO: AOx3. Clear speech SKIN: Warm and dry PSYCH: Not anxious, is cooperative Initial Vital Signs Initial Vital Signs: Vital Signs Pulse Oximetry 95 11/23/24 16:21 Course Orders Ordered: Discontinued Medications Sodium Chloride (Normal Saline 0.9%) 500 mls @ 1,000 mls/hr IV BOLUS ONE Stop: 11/23/24 17:15 Last Infusion: 11/23/24 18:35 Dose: Infused Documented By: Admin: 11/23/24 18:09 Dose: 1,000 mls/hr Documented By: RAJINDER Vital Signs Vital signs: Vital Signs - 8 hr 11/23/24 16:32 Temperature 98.2 F Pulse Rate 74 Respiratory Rate 17 Blood Pressure 165/98 H Pulse Oximetry 94 Oxygen Delivery Method Room Air MDM - Fall Lab Data 11/23/24 17:00 11/23/24 17:00 Labs: Lab Results 11/23/24 Range/Units 17:00 WBC 4.4 L (4.5-11.0) X10^3/uL RBC 4.71 (4.5-5.9) X10^6/uL Hgb 13.5 (13.5-17.5) g/dL Hct 40.7 L (41-53) % MCV 86.3 (80-100) fL MCH 28.7 (26-34) PG MCHC 33.2 (30-36) % RDW 14.1 (11.6-14.8) % Plt Count 127 L (150-400) X10^3/uL Neut % (Auto) 75.2 H (50-75) % Lymph % (Auto) 13.6 L (25-40) % [place] % (Auto) 9.0 (3-14) % Eos % (Auto) 1.6 L (2-4) % Baso % (Auto) 0.6 (0-2) % Neut # (Auto) 3300 (1378-6801) /uL Lymph # (Auto) 600 L (5962-9316) /uL [place] # (Auto) 400 (0-900) /uL Eos # (Auto) 100 (0-450) /uL Baso # (Auto) 0 (0-100) /uL PT 11.0 (9.4-12.5) SECONDS INR 1.0 (0.9-1.3) APTT 28 (25.1-36.5) SECONDS Sodium 139 (137-145) mmol/L Potassium 3.8 (3.4-5.1) mmol/L Chloride 107 (98-107) mmol/L Carbon Dioxide 20 L (22-32) mmol/L BUN 31 H (9-20) mg/dL Creatinine 1.39 H (0.66-1.25) mg/dL Estimated GFR 49 L (>60) mL/min BUN/Creatinine Ratio 22.3 H (6-22) Glucose 95 (70-99) mg/dL Calcium 9.9 (8.4-10.2) mg/dL Total Bilirubin 0.8 (0.2-1.3) mg/dL AST 21 (17-59) IU/L ALT 16 (<50) IU/L Alkaline Phosphatase 72 (38-126) U/L Total Protein 7.4 (6.3-8.2) g/dL Albumin 4.4 (3.5-5.0) g/dL Globulin 3.0 (1.7-4.1) g/dL Albumin/Globulin Ratio 1.5 (1.0-2.8) Imaging Data CT scan - head: Radiologist's Impression: [address] [address] [address] Scan Report Signed Patient: Esvin Coombs MR#: [id number] : 1935 Acct:[id number] Age/Sex: 89 / M Date of Service: 11/23/24 Loc: ED Accession Number: [id number] Procedure: CT head/brain wo con Ordering Provider: Jorge Falcon MD PROCEDURE: CT HEAD/BRAIN WO CON INDICATIONS: Trauma TECHNIQUE: Noncontrast 4.5 mm thick angled axial sections acquired from the foramen magnum to the vertex, with coronal and sagittal reformats. For radiation dose reduction, the following was used: automated exposure control, adjustment of mA and/or kV according to patient size. COMPARISON: [facility], CT, CT CERVICAL SPINE WO CON, 11/23/2024, 16:55. [facility], CT, CT TRAUMA CHEST ABDOMEN PELVIS, 11/23/2024, 16:55. [facility], CT, CT HEAD/BRAIN WO CON, 01/22/2020, 11:35. FINDINGS: Image quality: Diagnostic. CSF spaces: Basal cisterns are patent. No extra-axial fluid collections. The ventricles are symmetric in size and shape. Brain: No intracranial bleeds or mass effect. There is cerebral volume loss, with resultant ventricular and sulcal prominence. There are periventricular and deep white matter chronic small vessel ischemic changes. There is intracranial internal carotid artery atherosclerosis. Skull and face: Calvarium and visualized facial bones appear intact, without suspicious lesions. Sinuses: There is significant opacification of the right frontal sinus, which is similar to the prior. The paranasal sinuses are otherwise clear. No abnormal fluid is seen within the mastoid air cells. IMPRESSION: No acute intracranial hemorrhage is seen. No acute intracranial pathology. Additional findings: Stable, significant opacification of the right frontal sinus Dictated by: Luis Carlos Soni M.D. on 11/23/2024 at 16:45 Approved by: Luis Carlos Soni M.D. on 11/23/2024 at 16:47 CT - cervical spine: Radiologist's Impression: [address] [address] [address] Scan Report Signed Patient: Esvin Coombs MR#: [id number] : 1935 Acct:[id number] Age/Sex: 89 / M Date of Service: 11/23/24 Loc: ED Accession Number: [id number] Procedure: CT cervical spine wo con Ordering Provider: Jorge Falcon MD PROCEDURE: CT CERVICAL SPINE WO CON INDICATIONS: Trauma TECHNIQUE: Noncontrast 3 mm thick sections acquired from the skull base to the T4 level. Sagittal and coronal reformats were then constructed. For radiation dose reduction, the following was used: automated exposure control, adjustment of mA and/or kV according to patient size. COMPARISON: [facility], CT, CT CERVICAL SPINE WO CON, 09/27/2019, 11:07. [facility], CT, CT HEAD/BRAIN WO CON, 11/23/2024, 16:55. [facility], CT, CT TRAUMA CHEST ABDOMEN PELVIS, 11/23/2024, 16:55. [facility], CT, CT CERVICAL SPINE WO CON, 01/22/2020, 11:35. FINDINGS: Image quality: Excellent. Bones: No fractures or dislocations. Visualized superior ribs are intact. Focal degenerative change is seen involving the C1-C2 interface anteriorly. There is at least moderate disc space narrowing seen at C3-C4 and C4-C5. There is moderate to severe disc space narrowing seen at C5-C6 and C6-C7. Mild grade 1 anterolisthesis is seen at C4-C5. Removal of portions of the posterior elements can be seen. Multiple levels of facet hypertrophy can be seen. Soft tissues: Prevertebral soft tissues are normal in thickness. No paravertebral hematomas. No apical pneumothoraces. Atherosclerotic calcification is noted. IMPRESSION: No displaced fracture or traumatic subluxation. Postoperative and degenerative changes are seen. Dictated by: Luis Carlos Soni M.D. on 11/23/2024 at 16:48 Approved by: Luis Carlos Soni M.D. on 11/23/2024 at 16:50 CT chest abdomen pelvis: Radiologist's Impression: [address] [address] [address] Scan Report Signed Patient: Esvin Coombs MR#: [id number] : 1935 Acct:[id number] Age/Sex: 89 / M Date of Service: 11/23/24 Loc: ED Accession Number: [id number] Procedure: CT Trauma Chest Abdomen Pelvis Ordering Provider: Jorge Falcon MD PROCEDURE: CT TRAUMA CHEST ABDOMEN PELVIS INDICATIONS: fall with increasing Left sided pain TECHNIQUE: MDCT axial chest images were obtained with IV contrast in the arterial phase. Maximum intensity projections and multiplanar reformats were obtained. MDCT axial abdomen and pelvis images were obtained with IV contrast in the portal venous phase. Multiplanar reformats were obtained. Optional delayed phase scanning may also be obtained Advanced techniques were used to lower patient radiation exposure. COMPARISON: Located [facility], CT, CT CHEST ABD PEL W CON, 11/20/2017, 16:19. [facility], CT, CT HEAD/BRAIN WO CON, 11/23/2024, 16:55. [facility], CT, CT CERVICAL SPINE WO CON, 11/23/2024, 16:55. FINDINGS Image Quality: There is streak artifact seen through the level of the shoulders. There is also streak artifact seen through the upper abdomen. Chest: Lungs and pleura: No pneumothorax or hemothorax. No pulmonary contusions or lacerations. Dependent atelectasis can be seen. Within the left lower lobe inferiorly and medially, there is a nodule seen measuring 20 x 16 mm. Vascular: No dissection or pseudoaneurysm. No incidental central pulmonary embolism. No hemopericardium. Mediastinum: No mediastinum hematoma. No suspicious mass or lymph nodes. No actionable thyroid nodules. Chest wall: In this patient with this given history, scrutiny is given to the left ribs. No acute left rib fractures are seen. Remote rib fractures are seen. The Intact clavicles, scapula, and glenohumeral joint. Thoracic spine: No acute fracture or traumatic subluxation. ABDOMEN and PELVIS: Liver: No laceration or capsular hematoma. A central liver cyst is seen. Gallbladder: Unremarkable. Biliary system: Non-dilated. Pancreas: Unremarkable. Spleen: No laceration or capsular hematoma. Adrenals: There is a right adrenal nodule seen measuring 36 x 30 mm, as on series 2, image 143. There is a 19 mm left adrenal nodule, as on series 2, image 162. Kidneys: No contrast extravasation or hydronephrosis. No solid masses. Vessels and lymph nodes: No pathology lymph nodes by size criteria. No dissection or aneurysm. No retroperitoneal hematoma. Bowel and peritoneum: No suspicious region of mesenteric hemorrhage or hemoperitoneum. No bowel obstruction. Pelvis: Unremarkable bladder. Prostatectomy. Pelvic ring and femurs: No pelvic ring disruption. No hip fractures. Lumbar spine: No acute fracture or traumatic subluxation. Moderate dextroconvex lumbar scoliosis is seen. Significant lumbar spine degenerative changes are seen. Abdominal wall: No drainable fluid collection or hematoma. IMPRESSION: No acute posttraumatic abnormality is seen. No acute rib fracture or pneumothorax. Remote rib fractures can again be seen, however. There is a 2 cm left lower lobe pulmonary nodule seen. This is similar to 2018 and regarded to be benign Additional findings: Stable liver cyst Bilateral adrenal nodules, similar compared to 2018. Moderate dextroconvex lumbar scoliosis Lumbar spine degenerative change Prostatectomy Dictated by: Luis Carlos Soni M.D. on 11/23/2024 at 16:51 Approved by: Luis Carlos Soni M.D. on 11/23/2024 at 16:58 [facility] Narrative Medical decision making narrative: Patient brought here by his son. Complains of ground level fall 5 days ago at home. He states he was feeding his dog. After he placed the food down on the back deck his left knee gave out and he fell backwards down 3 steps off the deck landing on concrete, back of his head. He denies any loss of consciousness. No nausea or vomiting. Patient states he is on a blood thinner but does not recall the name of it. Denies any shoulder pain limb pain neck pain, no abdominal pain chest pain back pain. Patient states this is not the 1st time he has fallen. He has had multiple falls in the past. MDM After history and exam, CBC CMP PT INR PTT CT head cervical spine chest abdomen pelvis normal saline Differential considered: Includes but not limited to scalp contusion concussion intracranial bleed skull fracture cervical strain Medical records reviewed: No recent visit for this complaint Lab Test results independently reviewed as above. Pertinent findings: WBC 4.4 hemoglobin 13.5 hematocrit 40.7 INR 1.0 sodium 139 potassium 3.8 BUN 31 creatinine 1.39 GFR 49 Imaging studies independently reviewed: CT head CT cervical spine CT chest abdomen pelvis no acute finding Consultations: None indicated this time Re-evaluations: 611. Pain is controlled. Reviewed results with patient they are reassuring. Return precautions reviewed. He is calling family for ride home. Head injury instructions provided for him. Discussion: Appropriate for discharge home. Exam is reassuring. Return precautions reviewed with patient. He desires discharge home. Diagnosis: Scalp contusion rib contusion Discharge Plan Departure Patient Disposition: Home Clinical Impression: Contusion of scalp Qualifiers: Encounter type: initial encounter Qualified Code(s): S00.03XA - Contusion of scalp, initial encounter Contusion of rib on left side Qualifiers: Encounter type: initial encounter Qualified Code(s): S29.8XXA - Other specified injuries of thorax, initial encounter Instructions: DI for Contusion, DI for Rib Contusion, DI for Closed Head Injury Activity Restrictions/Additional Instructions: Your exam and laboratory studies are reassuring. Your CAT scans are reassuring. Please see your family doctor this week for re-evaluation. Return if worse if any questions or concerns. You may continue home medications. Prescriptions: No Action amlodipine [Norvasc] 10 mg tablet 10 mg PO DAILY Qty: 90 3RF Jardiance 10 mg tablet 10 mg PO DAILY Qty: 90 3RF rosuvastatin 10 mg tablet 10 mg PO DAILY Qty: 90 3RF lisinopril 40 mg tablet 40 mg PO DAILY Qty: 90 3RF Referrals: Silvano Andrea DO [Primary Care Provider, Family Practice] Stand Alone Forms: Patient Portal/API
[2024-11-23 17:15] LABS: Add Manual Diff / Slide Review NO; Hematocrit 40.7 % (41-53); Hemoglobin 13.5 g/dL (13.5-17.5); Lymphocytes Absolute Auto 600 /uL (1100-4500); Mean Corpuscular HGB Conc 33.2 % (30-36); Mean Corpuscular Hemoglobin 28.7 PG (26-34); Mean Corpuscular Volume 86.3 fL (80-100); Platelet Count 127 X10^3/uL (150-400)
[2024-11-23 17:22] LABS: INR 1.0 (0.9-1.3); Prothrombin Time 11.0 SECONDS (9.4-12.5)
[2024-11-23 17:25] LABS: PTT Partial Thromboplastin Tim 28 SECONDS (25.1-36.5)
[2024-11-23 17:26] LABS: Alanine Aminotransferase 16 IU/L (<50); Albumin 4.4 g/dL (3.5-5.0); Albumin Globulin Ratio 1.5 (1.0-2.8); Alkaline Phosphatase 72 U/L (38-126); Blood Urea Nitrogen 31 mg/dL (9-20); Calcium 9.9 mg/dL (8.4-10.2); Carbon Dioxide 20 mmol/L (22-32); Chloride 107 mmol/L (98-107); Estimated Glomerular Filt Rate 49 mL/min (>60); Globulin 3.0 g/dL (1.7-4.1); Glucose 95 mg/dL (70-99); HEMOLYSIS < 15 (0-50); Potassium 3.8 mmol/L (3.4-5.1); Sodium 139 mmol/L (137-145); Total Protein 7.4 g/dL (6.3-8.2)
[2024-11-23] MEDS: SODIUM CHLORIDE 0.9% 500 ML 1000 ML IV (18:09)
== END 2024-11-23 18:44 | disposition home or self-care (01) ==
PROVIDERS: Emergency Provider Emergency Medicine; Family Provider Family Medicine; PCP Family Medicine
DX: S00.03XA Contusion of scalp, initial encounter (principal); S29.8XXA Other specified injuries of thorax, initial encounter; R07.81 Pleurodynia; W10.9XXA Fall (on) (from) unspecified stairs and steps, initial encounter; Z79.01 Long term (current) use of anticoagulants
CPT/HCPCS: 36415; 70450; 71275; 72125; 74177; 80053; 85025; 85610; 85730; 99284; Q9967